=== PATIENT | male | born 1955 | race Caucasian/White ===

== ENCOUNTER 2019-11-13 12:17 | Emergency (ER) | payer MEDICARE ==
[~2019-11-13] VITALS: Ht 172.7 cm; Wt 63.5 kg
[2019-11-13 12:30] VITALS: BP 176/83
[2019-11-13] MEDS ORDERED: DEXAMETHASONE 4 MG TABLET PO STA (12:49)
[2019-11-13] MEDS ORDERED: fentaNYL PF VIAL 100 MCG/2 ML VIAL IV STA (12:49)
--- NOTE | 2019-11-13 12:53 | PHYS DOC ---
Past Medical History Past Medical History: Other Additional Past Medical Histor: scoliosis Past Surgical History: Other Additional Past Surgical Histo: bladder Alcohol Use: None Drug Use: None Adult General Chief Complaint Chief Complaint: LOWER BACK PAIN OR INJURY HPI HPI Patient is a 64 year old male who presents with back pain has been ongoing since . The patient states she's been having pain going down his right leg. He also has associated symptoms of frequent urination and dysuria. This started the same time as the back pain. The patient states he's never had this pain before rates as 9 out of 10 in severity and sharp. He denies any medical history. Review of Systems Review of Systems Constitutional: Denies fever or chills [] Eyes: Denies change in visual acuity, redness, or eye pain [] HENT: Denies nasal congestion or sore throat [] Respiratory: Denies cough or shortness of breath [] Cardiovascular: No additional information not addressed in HPI [] GI: Denies abdominal pain, nausea, vomiting, bloody stools or diarrhea [] : Reports dysuria and frequency. Musculoskeletal: Reports back pain radiating down the R leg. Integument: Denies rash or skin lesions [] Neurologic: Denies headache, focal weakness or sensory changes [] Endocrine: Denies polyuria or polydipsia [] Complete systems were reviewed and found to be within normal limits, except as documented in this note. Current Medications Current Medications Current Medications Medications (Trade) Dose Ordered Sig/Gabriela Start Time Stop Time Status Last Admin Dose Admin Dexamethasone (Decadron) 10 mg 1X STAT 11/13/19 12:49 11/13/19 12:59 DC 11/13/19 13:14 10 MG Fentanyl Citrate (Fentanyl 2ml Vial) 100 mcg 1X STAT 11/13/19 13:20 11/13/19 13:23 DC Allergies Allergies Allergies Coded Allergies Type Severity Reaction Last Updated Verified Penicillins Allergy Severe anaphylactic 11/13/19 Yes Sulfa (Sulfonamide Antibiotics) Allergy Severe anaphylactic 11/13/19 Yes Physical Exam Physical Exam Constitutional: Well developed, well nourished, no acute distress, non-toxic appearance. [] HENT: Normocephalic, atraumatic, bilateral external ears normal, oropharynx moist, no oral exudates, nose normal. [] Eyes: PERRLA, EOMI, conjunctiva normal, no discharge. [] Neck: Normal range of motion, no tenderness, Skin: Warm, dry, no erythema, no rash. [] Back: Lumbar tenderness with step off. Extremities: No tenderness, no cyanosis, no clubbing, ROM intact, no edema. [] Neurologic: Alert and oriented X 3, normal motor function, normal sensory function, no focal deficits noted. [] Psychologic: Affect normal, judgement normal, mood normal. [] Current Patient Data Vital Signs Vital Signs Date Time Temp Pulse Resp B/P (MAP) Pulse Ox O2 Delivery O2 Flow Rate FiO2 11/13/19 13:15 16 95 Room Air 11/13/19 12:30 98.4 77 176/83 (114) 98.4 Lab Values Laboratory Tests Test 11/13/19 12:55 Urine Collection Type Unknown Urine Color Yellow Urine Clarity Cloudy Urine pH 7.5 Urine Specific [place] 1.025 Urine Protein Negative mg/dL (NEG-TRACE) Urine Glucose (UA) Negative mg/dL (NEG) Urine Ketones (Stick) Negative mg/dL (NEG) Urine Blood Trace (NEG) Urine Nitrite Positive (NEG) Urine Bilirubin Negative (NEG) Urine Urobilinogen Dipstick 1.0 mg/dL (0.2 mg/dL) Urine Leukocyte Esterase Large (NEG) Urine RBC 1-2 /HPF (0-2) Urine WBC 5-10 /HPF (0-4) Urine Bacteria Many /HPF (0-FEW) EKG EKG [] Radiology/Procedures Radiology/Procedures [][facility] [address] [place], [place] [id number] IMAGING REPORT Signed PATIENT: ALIASAMMYMERLE ROSALES J ACCOUNT: [id number] : 1955 LOCATION: ER AGE: 64 SEX: M EXAM STATUS: REG ER ORD. PHYSICIAN: MERLE RICHEY APRN REASON: lumbar back pain PROCEDURE: CT LUMBAR SPINE WO CONTRAST Examination: CT lumbar spine without contrast History : history of back pain Comparison: None available TECHNIQUE: Axial CT images of the lumbar spine were performed with contrast. Coronal and sagittal reformats are performed Exposure: One or more of the following individualized dose reduction techniques were utilized for this examination: 1. Automated exposure control 2. Adjustment of the mA and/or kV according to patient size 3. Use of iterative reconstruction technique FINDINGS: Severe lumbar dextroscoliosis. Mild to moderate lateral compression changes of the lumbar spine of the L1, L2, L3, L4 vertebral levels. Severe degenerative changes lumbar spine. The bilateral facets are well aligned. Vacuum disc phenomenon identified in the lumbar spine throughout. Severe intervertebral disc height loss identified throughout lumbar spine likely degenerative changes. There is endplate irregularity identified at L1-L2, L3-L4 vertebral levels. IMPRESSION: 1. Severe degenerative changes lumbar spine with the lateral compression changes likely chronic. 2. Endplate irregularity identified at L1-L2, L2-L3 vertebral levels. This is most likely degenerative changes, however infectious etiology is not completely excluded. Clinical and laboratory correlation is recommended. Electronically signed by: Jluis Elliott MD (11/13/2019 1:29 PM) [facility] DICTATED and SIGNED BY: JLUIS ELLIOTT MD DATE: 11/13/19 1329 Course & Med Decision Making Course & Med Decision Making Pertinent Labs and Imaging studies reviewed. (See chart for details) The patient has urinary symptoms and back pain that started at the same time. He has spinal tenderness. Will get CT scan, UA, and give supportive care. UA shows nitrates and leukocytes. Will treat with Keflex. He also has sciatica, the CT was unremarkable for acute changes. Dragon Disclaimer Dragon Disclaimer This electronic medical record was generated, in whole or in part, using a voice recognition dictation system. Departure Departure Impression: Primary Impression: Sciatica of right side Additional Impression: Urinary tract infection Disposition: 01 HOME, SELF-CARE Condition: STABLE Patient Instructions: Sciatica, Urinary Tract Infection Additional Instructions: Thank you for visiting [facility]. We appreciate you trusting us with your care. If any additional problems come up don't hesitate to return to visit us. Please follow up with your primary care provider so they can plan additional care if needed and know about the problem that you had. If symptoms worsen come back to the Emergency Department. Any concerning symptoms that start such as chest pain, shortness of air, weakness or numbness on one side of the body, running high fevers or any other concerning symptoms return to the ER. You have been prescribed an antibiotic today to help fight your infection. Please take all of the antibiotic as directed. If after 48 hours the infection is not improving, please return for more care. If the infection worsens, return to ER for additional care. Please follow up with your primary care doctor in 1 week for recheck of urine. Scripts Cephalexin (KEFLEX) 500 Mg Capsule 1 CAP PO QID for 10 Days, #40 CAP 0 Refills Prov: MERLE RICHEY APRN 11/13/19 Hydrocodone/Apap 5-325 (NORCO 5-325 TABLET) 1 Each Tablet 1 TAB PO PRN Q6HRS PRN for PAIN for 3 Days, #10 TAB 0 Refills Prov: MERLE RICHEY APRN 11/13/19 Problem Qualifiers Additional Impression: Urinary tract infection Urinary tract infection type: acute cystitis Hematuria presence: with hematuria Qualified Codes: N30.01 - Acute cystitis with hematuria MERLE RICHEY APRN Nov 13, 2019 12:53
[2019-11-13 13:09] LABS: BILIRUBIN,URINE NEGATIVE (NEG); CLARITY,URINE CLOUDY; COLOR,URINE YELLOW; NITRITE,URINE POSITIVE (NEG); PH,URINE 7.5; PROTEIN,URINE NEGATIVE (NEG-TRACE)
[2019-11-13 13:18] LABS: BACTERIA,URINE MANY /HPF (0-FEW)
[2019-11-13] MEDS ORDERED: fentaNYL PF VIAL 100 MCG/2 ML VIAL IM STA (13:20)
--- NOTE | 2019-11-13 13:32 | RAD ---
Examination: CT lumbar spine without contrast History : history of back pain Comparison: None available TECHNIQUE: Axial CT images of the lumbar spine were performed with contrast. Coronal and sagittal reformats are performed Exposure: One or more of the following individualized dose reduction techniques were utilized for this examination: 1. Automated exposure control 2. Adjustment of the mA and/or kV according to patient size 3. Use of iterative reconstruction technique FINDINGS: Severe lumbar dextroscoliosis. Mild to moderate lateral compression changes of the lumbar spine of the L1, L2, L3, L4 vertebral levels. Severe degenerative changes lumbar spine. The bilateral facets are well aligned. Vacuum disc phenomenon identified in the lumbar spine throughout. Severe intervertebral disc height loss identified throughout lumbar spine likely degenerative changes. There is endplate irregularity identified at L1-L2, L3-L4 vertebral levels. IMPRESSION: 1. Severe degenerative changes lumbar spine with the lateral compression changes likely chronic. 2. Endplate irregularity identified at L1-L2, L2-L3 vertebral levels. This is most likely degenerative changes, however infectious etiology is not completely excluded. Clinical and laboratory correlation is recommended. Electronically signed by: Jluis Elliott MD (11/13/2019 1:29 PM) [facility]
[2019-11-13] MEDS ORDERED: HYDR-3164 PO (13:50)
[2019-11-13] MEDS ORDERED: CEPH-264 PO (13:50)
[2019-11-13] MEDS ORDERED: PROM25SU33 RC (20:59)
== END 2019-11-13 14:05 | disposition home or self-care (01) ==
LOC: ER 12:17
DX: N30.01 Acute cystitis with hematuria (principal); M54.41 Lumbago with sciatica, right side; Z98.890 Other specified postprocedural states; Z88.0 Allergy status to penicillin; Z88.2 Allergy status to sulfonamides
CPT/HCPCS: 72131; 81001; 87086; 96374; 99285; J3010; J8540

== ENCOUNTER 2019-11-13 20:29 | Emergency (ER) | payer MEDICARE ==
[~2019-11-13] VITALS: Ht 172.7 cm; Wt 65.8 kg
[~2019-11-13 20:29] MED LIST: CEPH-264 PO; HYDR-3164 PO
[2019-11-13 20:48] VITALS: BP 147/91
[2019-11-13] MEDS ORDERED: PROM25SU33 RC (20:59)
--- NOTE | 2019-11-13 21:00 | PHYS DOC ---
Past Medical History Past Medical History: Other Additional Past Medical Histor: scoliosis Past Surgical History: Other Additional Past Surgical Histo: bladder Alcohol Use: None Drug Use: None Adult General Chief Complaint Chief Complaint: NAUSEA/VOMITING/DIARRHA HPI HPI 64-year-old male with a history of chronic back and leg pain returns to the emergency department tonight secondary to increasing pain in his back and legs. He states he was unable to take his pain medication at home. He states he was unable to take because he was nauseated. He denies any fever chills or sweats.[] Review of Systems Review of Systems Constitutional: Denies fever or chills [] Eyes: Denies change in visual acuity, redness, or eye pain [] HENT: Denies nasal congestion or sore throat [] Respiratory: Denies cough or shortness of breath [] Cardiovascular: No additional information not addressed in HPI [] GI: Denies abdominal pain, nausea, vomiting, bloody stools or diarrhea [] : Denies dysuria or hematuria [] Musculoskeletal: Reports back pain per history of present illness[] Integument: Denies rash or skin lesions [] Neurologic: Denies headache, focal weakness or sensory changes [] Endocrine: Denies polyuria or polydipsia [] All other systems were reviewed and found to be within normal limits, except as documented in this note. Allergies Allergies Allergies Coded Allergies Type Severity Reaction Last Updated Verified Penicillins Allergy Severe anaphylactic 11/13/19 Yes Sulfa (Sulfonamide Antibiotics) Allergy Severe anaphylactic 11/13/19 Yes Physical Exam Physical Exam Constitutional: Well developed, well nourished, mild to moderate distress, non- toxic appearance. [] HENT: Normocephalic, atraumatic, bilateral external ears normal, oropharynx moist, no oral exudates, nose normal. [] Eyes: PERRLA, EOMI, conjunctiva normal, no discharge. [] Neck: Normal range of motion, no tenderness, supple, no stridor. [] Cardiovascular:Heart rate regular rhythm, no murmur [] Lungs & Thorax: Bilateral breath sounds clear to auscultation [] Abdomen: Bowel sounds normal, soft, no tenderness, no masses, no pulsatile masses. [] Skin: Warm, dry, no erythema, no rash. [] Back: No tenderness, no CVA tenderness. [] Extremities: No tenderness, no cyanosis, no clubbing, ROM intact, no edema. [] Neurologic: Alert and oriented X 3, normal motor function, normal sensory function, no focal deficits noted. [] Psychologic: Affect normal, judgement normal, mood normal. [] EKG EKG [] Radiology/Procedures Radiology/Procedures [] Course & Med Decision Making Course & Med Decision Making Pertinent Labs and Imaging studies reviewed. (See chart for details) [] Dragon Disclaimer Dragon Disclaimer This electronic medical record was generated, in whole or in part, using a voice recognition dictation system. Departure Departure Impression: Primary Impression: Sciatica of right side Additional Impression: Chronic pain Disposition: HOME, SELF-CARE Condition: STABLE Referrals: UNKNOWN PCP NAME (PCP) Patient Instructions: Back Pain, Adult Additional Instructions: Return to the emergency department with any new or concerning symptoms Scripts Promethazine Hcl (PROMETHAZINE HCL) 25 Mg Supp.rect 25 MG RC Q6H PRN for NAUSEA/VOMITING, #10 SUPP.RECT Prov: MARTA WERNER DO 11/13/19 Problem Qualifiers Additional Impression: Chronic pain Chronic pain type: chronic pain syndrome Qualified Codes: G89.4 - Chronic pain syndrome MARTA WERNER DO Nov 13, 2019 21:00
[2019-11-13] MEDS ORDERED: ONDANSETRON PF 4 MG/2 ML VIAL. IM ONE (21:30)
[2019-11-13] MEDS ORDERED: HYDROmorphone 2 MG/ML VIAL IM ONE (21:30)
== END 2019-11-13 21:24 | disposition home or self-care (01) ==
LOC: ER 20:29
DX: G89.4 Chronic pain syndrome (principal); M54.31 Sciatica, right side; M54.9 Dorsalgia, unspecified; Z98.890 Other specified postprocedural states; Z88.0 Allergy status to penicillin; Z88.2 Allergy status to sulfonamides
CPT/HCPCS: 96372; 99284; J1170; J2405

== ENCOUNTER 2020-01-29 19:04 | Emergency (ER) | payer MEDICARE ==
[~2020-01-29] VITALS: Ht 172.7 cm; Wt 72.2 kg
[~2020-01-29 19:04] MED LIST changes: +PROM25SU33 RC
[2020-01-29 19:45] LABS: BASO % 0 % (0-3); EOS % 0 % (0-3); HEMATOCRIT 41.2 % (39.0-53.0); HEMOGLOBIN 13.7 g/dL (13.0-17.5); LYMPH # 1.3 x10^3/uL (1.0-4.8); LYMPH % 15 % (24-48); MEAN CORPUSCULAR HEMOGLOBIN 27 pg (25-35); MEAN CORPUSCULAR HGB CONC 33 g/dL (31-37); MEAN CORPUSCULAR VOLUME 83 fL (79-100); MONO # 0.5 x10^3/uL (0.0-1.1); MONO % 6 % (0-9); NEUT # 6.9 x10^3/uL (1.8-7.7); NEUT % 79 % (31-73); PLATELET COUNT 251 x10^3/uL (140-400); RED BLOOD COUNT 4.99 x10^6/uL (4.30-5.70); WHITE BLOOD COUNT 8.7 x10^3/uL (4.0-11.0)
[2020-01-29] MEDS ORDERED: IV NORMAL SALINE 1000ML BAG 1,000 ML IV ONE (19:45)
[2020-01-29 19:53] LABS: CALCIUM 9.7 mg/dL (8.5-10.1); GFR 75.7; POTASSIUM 3.5 mmol/L (3.5-5.1)
[2020-01-29 19:58] LABS: ALBUMIN/GLOBULIN RATIO 1.1 (1.0-1.7); MAGNESIUM 1.7 mg/dL (1.8-2.4); TOTAL BILIRUBIN 0.5 mg/dL (0.2-1.0); TOTAL PROTEIN 7.6 g/dL (6.4-8.2)
[2020-01-29 20:32] LABS: BILIRUBIN,URINE NEGATIVE (NEG); CLARITY,URINE CLOUDY; COLOR,URINE YELLOW; NITRITE,URINE POSITIVE (NEG); PH,URINE 5.5; PROTEIN,URINE 30 mg/dL (NEG-TRACE)
[2020-01-29 20:39] LABS: AMPHETAMINE/METHAMPHETAMINE NEG (NEG); BACTERIA,URINE MANY /HPF (0-FEW); BARBITURATES NEG (NEG); BENZODIAZEPINES NEG (NEG); CANNABINOIDS NEG (NEG); COCAINE NEG (NEG); METHADONE POS (NEG); OPIATES NEG (NEG); PHENCYCLIDINE NEG (NEG); WBC,URINE TNTC /HPF (0-4)
[2020-01-29] MEDS ORDERED: BENZTROPINE MESYLATE 2 MG/2 ML VIAL. IV ONE (22:00)
--- NOTE | 2020-01-29 22:19 | PHYS DOC ---
Past Medical History Past Medical History: Other Additional Past Medical Histor: scoliosis,CHRONIC BACK PAIN Past Surgical History: Other Additional Past Surgical Histo: bladder Smoking Status: Current Every Day Smoker Alcohol Use: None Drug Use: None Adult General Chief Complaint Chief Complaint: ANXIETY/PANIC ATTACK HPI HPI Patient is a 64 year old male who was brought here from home by EMS for anxiety, panic attack. Patient has history of anxiety and chronic back pain, he is on lorazepam and methadone. Patient started feeling shaky and anxious today, he took his medications but did not get calm down so he called EMS to take him here for evaluation. Patient denies any trouble breathing, no chest pain, no abdominal pain, no nausea or vomiting. Patient denies suicidal ideation denies homicidal ideation. Review of Systems Review of Systems Constitutional: Denies fever or chills [] Eyes: Denies change in visual acuity, redness, or eye pain [] HENT: Denies nasal congestion or sore throat [] Respiratory: Denies cough or shortness of breath [] Cardiovascular: No additional information not addressed in HPI [] GI: Denies abdominal pain, nausea, vomiting, bloody stools or diarrhea [] : Denies dysuria or hematuria [] Musculoskeletal: Denies back pain or joint pain [] Integument: Denies rash or skin lesions [] Neurologic: Denies headache, focal weakness or sensory changes [] Endocrine: Denies polyuria or polydipsia [] Psych: Positive for anxiety, NO suicidal ideation, no homicidal ideation. All other systems were reviewed and found to be within normal limits, except as documented in this note. Current Medications Current Medications Current Medications Medications (Trade) Dose Ordered Sig/Gabriela Start Time Stop Time Status Last Admin Dose Admin Benztropine Mesylate (Cogentin) 2 mg 1X ONCE 01/29/20 22:00 01/29/20 22:01 DC 01/29/20 22:07 2 MG Levofloxacin/ Dextrose 150 ml @ 100 mls/hr 1X ONCE 01/29/20 21:00 01/29/20 22:29 DC 01/29/20 21:02 100 MLS/HR Lorazepam (Ativan Inj) 2 mg 1X ONCE 01/29/20 19:45 01/29/20 19:46 DC 01/29/20 19:50 2 MG Sodium Chloride 1,000 ml @ 1,000 mls/hr 1X ONCE 01/29/20 19:45 01/29/20 20:44 DC 01/29/20 19:45 1,000 MLS/HR Allergies Allergies Allergies Coded Allergies Type Severity Reaction Last Updated Verified Penicillins Allergy Severe anaphylactic 11/13/19 Yes Sulfa (Sulfonamide Antibiotics) Allergy Severe anaphylactic 11/13/19 Yes Influenza Virus Vaccines Allergy Intermediate 01/29/20 Yes Physical Exam Physical Exam Constitutional: Well developed, well nourished, appeared shaky and trembling, mild acute distress, non-toxic appearance. [] HENT: Normocephalic, atraumatic, bilateral external ears normal, oropharynx moist, no oral exudates, nose normal. [] Eyes: PERRLA, EOMI, conjunctiva normal, no discharge. [] Neck: Normal range of motion, no tenderness, supple, no stridor. [] Cardiovascular:Heart rate regular rhythm, no murmur [] Lungs & Thorax: Bilateral breath sounds clear to auscultation [] Abdomen: Bowel sounds normal, soft, no tenderness, no masses, no pulsatile m asses. [] Skin: Warm, dry, no erythema, no rash. [] Back: No tenderness, no CVA tenderness. [] Extremities: No tenderness, no cyanosis, no clubbing, ROM intact, no edema. [] Neurologic: Alert and oriented X 3, normal motor function, normal sensory function, no focal deficits noted. [] Psychologic: appeared very anxious, denied suicidal ideation, no homicidal ideation. Current Patient Data Vital Signs Vital Signs Date Time Temp Pulse Resp B/P (MAP) Pulse Ox O2 Delivery O2 Flow Rate FiO2 01/29/20 19:14 98.4 96 24 143/67 (92) 98 Room Air 98.4 Lab Values Laboratory Tests Test 01/29/20 19:20 01/29/20 20:28 White Blood Count 8.7 x10^3/uL (4.0-11.0) Red Blood Count 4.99 x10^6/uL (4.30-5.70) Hemoglobin 13.7 g/dL (13.0-17.5) Hematocrit 41.2 % (39.0-53.0) Mean Corpuscular Volume 83 fL (79-100) Mean Corpuscular Hemoglobin 27 pg (25-35) Mean Corpuscular Hemoglobin Concent 33 g/dL (31-37) Red Cell Distribution Width 16.0 % (11.5-14.5) H Platelet Count 251 x10^3/uL (140-400) Neutrophils (%) (Auto) 79 % (31-73) H Lymphocytes (%) (Auto) 15 % (24-48) L Monocytes (%) (Auto) 6 % (0-9) Eosinophils (%) (Auto) 0 % (0-3) Basophils (%) (Auto) 0 % (0-3) Neutrophils # (Auto) 6.9 x10^3/uL (1.8-7.7) Lymphocytes # (Auto) 1.3 x10^3/uL (1.0-4.8) Monocytes # (Auto) 0.5 x10^3/uL (0.0-1.1) Eosinophils # (Auto) 0.0 x10^3/uL (0.0-0.7) Basophils # (Auto) 0.0 x10^3/uL (0.0-0.2) Sodium Level 144 mmol/L (136-145) Potassium Level 3.5 mmol/L (3.5-5.1) Chloride Level 102 mmol/L (98-107) Carbon Dioxide Level 29 mmol/L (21-32) Anion Gap 13 (6-14) Blood Urea Nitrogen 14 mg/dL (8-26) Creatinine 1.0 mg/dL (0.7-1.3) Estimated GFR (Cockcroft-Gault) 75.7 BUN/Creatinine Ratio 14 (6-20) Glucose Level 129 mg/dL (70-99) H Calcium Level 9.7 mg/dL (8.5-10.1) Magnesium Level 1.7 mg/dL (1.8-2.4) L Total Bilirubin 0.5 mg/dL (0.2-1.0) Aspartate Amino Transferase (AST) 21 U/L (15-37) Alanine Aminotransferase (ALT) 20 U/L (16-63) Alkaline Phosphatase 103 U/L (46-116) Total Protein 7.6 g/dL (6.4-8.2) Albumin 4.0 g/dL (3.4-5.0) Albumin/Globulin Ratio 1.1 (1.0-1.7) Urine Collection Type Unknown Urine Color Yellow Urine Clarity Cloudy Urine pH 5.5 Urine Specific [place] 1.025 Urine Protein 30 mg/dL (NEG-TRACE) Urine Glucose (UA) Negative mg/dL (NEG) Urine Ketones (Stick) Negative mg/dL (NEG) Urine Blood Small (NEG) Urine Nitrite Positive (NEG) Urine Bilirubin Negative (NEG) Urine Urobilinogen Dipstick 1.0 mg/dL (0.2 mg/dL) Urine Leukocyte Esterase Large (NEG) Urine RBC 3-5 /HPF (0-2) Urine WBC Tntc /HPF (0-4) Urine Squamous Epithelial Cells None /LPF Urine Bacteria Many /HPF (0-FEW) Urine Mucus Marked /LPF Urine Opiates Screen Neg (NEG) Urine Methadone Screen Pos (NEG) Urine Barbiturates Neg (NEG) Urine Phencyclidine Screen Neg (NEG) Urine Amphetamine/Methamphetamine Neg (NEG) Urine Benzodiazepines Screen Neg (NEG) Urine Cocaine Screen Neg (NEG) Urine Cannabinoids Screen Neg (NEG) Urine Ethyl Alcohol Neg (NEG) Laboratory Tests 01/29/20 19:20 Laboratory Tests 01/29/20 19:20 EKG EKG [] Radiology/Procedures Radiology/Procedures [] Course & Med Decision Making Course & Med Decision Making Pertinent Labs and Imaging studies reviewed. (See chart for details) Patient is a 64-year-old male who was evaluated in the ER due to anxiety ATTACK. Patient also was found to have UTI. Patient was given IV fluid and IV Levaquin in the ER, he was also given anxiety medication in ER, he felt much better. Patient denies suicidal ideation, denies homicidal ideation. Patient will be discharged home. Patient is on methadone for chronic back pain, lorazepam for anxiety at home. Patient have all of these medications with him. Dragon Disclaimer Dragon Disclaimer This electronic medical record was generated, in whole or in part, using a voice recognition dictation system. Departure Departure Impression: Primary Impression: Urinary tract infection Additional Impression: Anxiety Disposition: 01 HOME, SELF-CARE Condition: STABLE Referrals: UNKNOWN PCP NAME (PCP) Patient Instructions: Anxiety and Panic Attacks, Urinary Tract Infection Additional Instructions: Thank you for visiting our Emergency Department. We appreciate you trusting us with your care. If any additional problems come up don't hesitate to return to visit us. Please follow up with your primary care provider so they can plan additional care if needed and know about the problem that you had. If symptoms worsen come back to the Emergency Department. Any concerning symptoms that start such as chest pain, shortness of air, weakness or numbness on one side of the body, running high fevers or any other concerning symptoms return to the ER. Scripts Levofloxacin (LEVAQUIN) 500 Mg Tablet 1 TAB PO DAILY for 7 Days, #7 TAB 0 Refills Prov: ISRAEL ECHEVERRIA DO 01/29/20 Problem Qualifiers ISRAEL ECHEVERRIA DO Jan 29, 2020 22:19
[2020-01-29] MEDS ORDERED: LEVO500T59 PO (23:09)
[2020-01-29 23:41] VITALS: BP 164/93
== END 2020-01-29 23:50 | disposition home or self-care (01) ==
LOC: ER 19:04
DX: N39.0 Urinary tract infection, site not specified (principal); F41.9 Anxiety disorder, unspecified; G89.29 Other chronic pain; F17.200 Nicotine dependence, unspecified, uncomplicated; Z98.890 Other specified postprocedural states; Z88.0 Allergy status to penicillin; Z88.2 Allergy status to sulfonamides; Z88.7 Allergy status to serum and vaccine
CPT/HCPCS: 36415; 80053; 80307; 81001; 83735; 85025; 87086; 96361; 96365; 96366; 96375; 99285; J0515; J1956; J2060; J7030

== ENCOUNTER → 2020-02-16 | Outpatient (CLI) | payer MEDICARE ==
[2020-01-29 23:41] VITALS: BP 164/93
[~2020-02-16] MED LIST changes: +CHOL200078 PO; +CIPR250T PO; +DULO30CA2 PO; +DULO60CA6 PO; +FINA5TAB4 PO; +GABA300C18 PO; +LEVO500T59 PO; +MAGN400T30 PO; +MIRT15TA90 PO; +OLAN5TAB9 PO; +TAMS0.4C97 PO; +TRAZ-123 PO; +methylPREDNISolone ACETATE 40 MG/ML VIAL. ONE; +methylPREDNISolone ACETATE 80 MG/ML VIAL. ONE
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
== END | disposition home or self-care (01) ==
LOC: PNCL 10:39
PROVIDERS: ATTEND Anesthesiology
DX: M51.16 Intervertebral disc disorders with radiculopathy, lumbar region (principal); F17.210 Nicotine dependence, cigarettes, uncomplicated; M79.661 Pain in right lower leg; M79.662 Pain in left lower leg; M19.90 Unspecified osteoarthritis, unspecified site; Z87.440 Personal history of urinary (tract) infections; Z98.890 Other specified postprocedural states; Z88.0 Allergy status to penicillin; Z88.1 Allergy status to other antibiotic agents; Z91.041 Radiographic dye allergy status; Z80.3 Family history of malignant neoplasm of breast; Z83.3 Family history of diabetes mellitus; Z79.899 Other long term (current) drug therapy; Z79.2 Long term (current) use of antibiotics
CPT/HCPCS: 62323; J1030; J1040

== ENCOUNTER 2020-02-21 03:50 | Emergency (ER) | payer MEDICARE ==
[~2020-02-21] VITALS: Ht 172.7 cm; Wt 63.6 kg
[~2020-02-21 03:50] MED LIST changes: -methylPREDNISolone ACETATE 40 MG/ML VIAL. ONE; -methylPREDNISolone ACETATE 80 MG/ML VIAL. ONE
--- NOTE | 2020-02-21 03:59 | PHYS DOC ---
Past Medical History Past Medical History: Anxiety, Other Additional Past Medical Histor: scoliosis,CHRONIC BACK PAIN (MERLE CAMPBELL DO) Past Surgical History: Other Additional Past Surgical Histo: bladder (MERLE CAMPBELL DO) Smoking Status: Current Every Day Smoker Alcohol Use: None Drug Use: None (MERLE CAMPBELL DO) Adult General Chief Complaint Chief Complaint: N/V/D, Abdominal pain HPI HPI 64-year-old male presents with one-day history of diffuse abdominal pain with associated nausea, vomiting, and diarrhea. Patient denies known sick contacts. Patient lives at [facility] in independent living. Denies fever or chills. Patient with chronic anxiety and back pain. Patient takes clonazepam and methadone. Patient reported he had not been taking his same dosing of methadone recently. (MERLE CAMPBELL DO) Review of Systems Review of Systems Constitutional: Denies fever or chills Eyes: Denies redness or eye pain HENT: Denies nasal congestion or sore throat Respiratory: Denies cough or shortness of breath Cardiovascular: Denies chest pain or palpitations GI: Reports abdominal pain, nausea, vomiting, and diarrhea : Denies dysuria or hematuria Musculoskeletal: Denies back pain or joint pain Integument: Denies rash or skin lesions Neurologic: Denies headache, focal weakness or sensory changes Complete systems were reviewed and found to be within normal limits, except as documented in this note. (MERLE CAMPBELL DO) Current Medications Current Medications Current Medications Medications (Trade) Dose Ordered Sig/Gabriela Start Time Stop Time Status Last Admin Dose Admin Ciprofloxacin/ Dextrose 200 ml @ 200 mls/hr 1X ONCE 02/21/20 07:45 02/21/20 08:44 DC 02/21/20 07:56 200 MLS/HR Famotidine (Pepcid Vial) 20 mg 1X ONCE 02/21/20 04:30 02/21/20 04:31 DC 02/21/20 05:00 20 MG Info (CONTRAST GIVEN -- Rx MONITORING) 1 each PRN DAILY PRN 02/21/20 05:45 02/21/20 09:26 DC Iohexol (Omnipaque 300 Mg/ml) 75 ml 1X ONCE 02/21/20 06:00 02/21/20 06:01 DC 02/21/20 05:58 75 ML Lorazepam (Ativan Inj) 1 mg 1X ONCE 02/21/20 06:00 02/21/20 06:01 DC 02/21/20 06:26 1 MG Ondansetron HCl (Zofran) 4 mg 1X ONCE 02/21/20 04:30 02/21/20 04:31 DC 02/21/20 05:00 4 MG Potassium Bicarbonate (Potassium Effervescent Tablet) 40 meq 1X ONCE 02/21/20 07:45 02/21/20 07:46 DC 02/21/20 07:56 40 MEQ Sodium Chloride 1,000 ml @ 1,000 mls/hr 1X ONCE 02/21/20 04:30 02/21/20 05:29 DC 02/21/20 05:00 1,000 MLS[facility]HR [facility] Allergies Allergies Allergies Coded Allergies Type Severity Reaction Last Updated Verified Penicillins Allergy Severe anaphylactic 11/13/19 Yes Sulfa (Sulfonamide Antibiotics) Allergy Severe anaphylactic 11/13/19 Yes Influenza Virus Vaccines Allergy Intermediate 01/29/20 Yes ([facility] ) Physical Exam Physical Exam Constitutional: Well developed, well nourished, anxious, non-toxic appearance HENT: Normocephalic, atraumatic, oropharynx moist Eyes: Conjunctiva normal, no discharge Neck: Normal range of motion, no tenderness, supple Cardiovascular: Heart rate normal, regular rhythm Lungs & Thorax: Bilateral breath sounds clear to auscultation, no wheezing Abdomen: Soft, diffuse tenderness, no guarding/rebound tenderness/distention Skin: Warm, dry, no erythema, no rash Extremities: No tenderness, ROM intact, no edema Neurologic: Alert and oriented X 3, normal motor function, normal sensory function, no focal deficits noted Psychologic: Affect anxious, judgment normal (MERLE CAMPBELL DO) Current Patient Data Vital Signs Vital Signs Date Time Temp Pulse Resp B/P (MAP) Pulse Ox O2 Delivery O2 Flow Rate FiO2 02/21/20 08:38 106 20 151/107 (122) 02/21/20 06:38 99 Room Air 02/21/20 04:30 98.5 98.5 ([facility]) Lab Values Laboratory Tests Test 02/21/20 04:58 02/21/20 05:20 White Blood Count 10.0 x10^3/uL (4.0-11.0) Red Blood Count 5.54 x10^6/uL (4.30-5.70) Hemoglobin 15.1 g/dL (13.0-17.5) Hematocrit 45.9 % (39.0-53.0) Mean Corpuscular Volume 83 fL (79-100) Mean Corpuscular Hemoglobin 27 pg (25-35) Mean Corpuscular Hemoglobin Concent 33 g/dL (31-37) Red Cell Distribution Width 15.5 % (11.5-14.5) H Platelet Count 314 x10^3/uL (140-400) Neutrophils (%) (Auto) 71 % (31-73) Lymphocytes (%) (Auto) 21 % (24-48) L Monocytes (%) (Auto) 7 % (0-9) Eosinophils (%) (Auto) 1 % (0-3) Basophils (%) (Auto) 0 % (0-3) Neutrophils # (Auto) 7.1 x10^3/uL (1.8-7.7) Lymphocytes # (Auto) 2.1 x10^3/uL (1.0-4.8) Monocytes # (Auto) 0.7 x10^3/uL (0.0-1.1) Eosinophils # (Auto) 0.1 x10^3/uL (0.0-0.7) Basophils # (Auto) 0.0 x10^3/uL (0.0-0.2) Prothrombin Time 13.0 SEC (11.7-14.0) Prothrombin Time INR 1.0 (0.8-1.1) Activated Partial Thromboplast Time 30 SEC (24-38) Sodium Level 140 mmol/L (136-145) Potassium Level 3.1 mmol/L (3.5-5.1) L Chloride Level 101 mmol/L (98-107) Carbon Dioxide Level 30 mmol/L (21-32) Anion Gap 9 (6-14) Blood Urea Nitrogen 21 mg/dL (8-26) Creatinine 1.0 mg/dL (0.7-1.3) Estimated GFR (Cockcroft-Gault) 75.7 BUN/Creatinine Ratio 21 (6-20) H Glucose Level 114 mg/dL (70-99) H Lactic Acid Level 1.4 mmol/L (0.4-2.0) Calcium Level 9.5 mg/dL (8.5-10.1) Magnesium Level 2.0 mg/dL (1.8-2.4) Total Bilirubin 0.9 mg/dL (0.2-1.0) Aspartate Amino Transferase (AST) 17 U/L (15-37) Alanine Aminotransferase (ALT) 28 U/L (16-63) Alkaline Phosphatase 102 U/L (46-116) Creatine Kinase 118 U/L (39-308) Creatine Kinase MB (Mass) 3.2 ng/mL (0.0-3.6) Creatine Kinase MB Relative Index 2.7 % (0-4) Troponin I Quantitative < 0.017 ng/mL (0.000-0.055) Total Protein 7.5 g/dL (6.4-8.2) Albumin 4.0 g/dL (3.4-5.0) Albumin/Globulin Ratio 1.1 (1.0-1.7) Lipase 208 U/L (73-393) Urine Collection Type Unknown Urine Color Yellow Urine Clarity Clear Urine pH 6.5 (<5.0-8.0) Urine Specific [place] >=1.030 (1.000-1.030) Urine Protein 30 mg/dL (NEG-TRACE) Urine Glucose (UA) Negative mg/dL (NEG) Urine Ketones (Stick) Negative mg/dL (NEG) Urine Blood Negative (NEG) Urine Nitrite Positive (NEG) Urine Bilirubin Negative (NEG) Urine Urobilinogen Dipstick 1.0 mg/dL (0.2 mg/dL) Urine Leukocyte Esterase Moderate (NEG) Urine RBC 0 /HPF (0-2) Urine WBC Tntc /HPF (0-4) Urine Squamous Epithelial Cells Few /LPF Urine Bacteria Many /HPF (0-FEW) Urine Mucus Mod /LPF Laboratory Tests 02/21/20 04:58 Laboratory Tests 02/21/20 04:58 (KRISS DURBIN E ) Lab Values Laboratory Tests Test 02/21/20 04:58 02/21/20 05:20 White Blood Count 10.0 x10^3/uL (4.0-11.0) Red Blood Count 5.54 x10^6/uL (4.30-5.70) Hemoglobin 15.1 g/dL (13.0-17.5) Hematocrit 45.9 % (39.0-53.0) Mean Corpuscular Volume 83 fL (79-100) Mean Corpuscular Hemoglobin 27 pg (25-35) Mean Corpuscular Hemoglobin Concent 33 g/dL (31-37) Red Cell Distribution Width 15.5 % (11.5-14.5) H Platelet Count 314 x10^3/uL (140-400) Neutrophils (%) (Auto) 71 % (31-73) Lymphocytes (%) (Auto) 21 % (24-48) L Monocytes (%) (Auto) 7 % (0-9) Eosinophils (%) (Auto) 1 % (0-3) Basophils (%) (Auto) 0 % (0-3) Neutrophils # (Auto) 7.1 x10^3/uL (1.8-7.7) Lymphocytes # (Auto) 2.1 x10^3/uL (1.0-4.8) Monocytes # (Auto) 0.7 x10^3/uL (0.0-1.1) Eosinophils # (Auto) 0.1 x10^3/uL (0.0-0.7) Basophils # (Auto) 0.0 x10^3/uL (0.0-0.2) Sodium Level 140 mmol/L (136-145) Potassium Level 3.1 mmol/L (3.5-5.1) L Chloride Level 101 mmol/L (98-107) Carbon Dioxide Level 30 mmol/L (21-32) Anion Gap 9 (6-14) Blood Urea Nitrogen 21 mg/dL (8-26) Creatinine 1.0 mg/dL (0.7-1.3) Estimated GFR (Cockcroft-Gault) 75.7 BUN/Creatinine Ratio 21 (6-20) H Glucose Level 114 mg/dL (70-99) H Lactic Acid Level 1.4 mmol/L (0.4-2.0) Calcium Level 9.5 mg/dL (8.5-10.1) Magnesium Level 2.0 mg/dL (1.8-2.4) Total Bilirubin 0.9 mg/dL (0.2-1.0) Aspartate Amino Transferase (AST) 17 U/L (15-37) Alanine Aminotransferase (ALT) 28 U/L (16-63) Alkaline Phosphatase 102 U/L (46-116) Creatine Kinase 118 U/L (39-308) Creatine Kinase MB (Mass) 3.2 ng/mL (0.0-3.6) Creatine Kinase MB Relative Index 2.7 % (0-4) Troponin I Quantitative < 0.017 ng/mL (0.000-0.055) Total Protein 7.5 g/dL (6.4-8.2) Albumin 4.0 g/dL (3.4-5.0) Albumin/Globulin Ratio 1.1 (1.0-1.7) Lipase 208 U/L (73-393) Urine Collection Type Unknown Urine Color Yellow Urine Clarity Clear Urine pH 6.5 (<5.0-8.0) Urine Specific [place] >=1.030 (1.000-1.030) Urine Protein 30 mg/dL (NEG-TRACE) Urine Glucose (UA) Negative mg/dL (NEG) Urine Ketones (Stick) Negative mg/dL (NEG) Urine Blood Negative (NEG) Urine Nitrite Positive (NEG) Urine Bilirubin Negative (NEG) Urine Urobilinogen Dipstick 1.0 mg/dL (0.2 mg/dL) Urine Leukocyte Esterase Moderate (NEG) Urine RBC 0 /HPF (0-2) Urine WBC Tntc /HPF (0-4) Urine Squamous Epithelial Cells Few /LPF Urine Bacteria Many /HPF (0-FEW) Urine Mucus Mod /LPF Laboratory Tests 02/21/20 04:58 Laboratory Tests 02/21/20 04:58 (MERLE CAMPBELL DO) EKG EKG @0434 NSR at 90bpm, NO ST elevation, baseline artifact, PACs (MERLE CAMPBELL DO) Radiology/Procedures Radiology/Procedures [] (MERLE CAMPBELL DO) Impressions: IMPRESSION: * The appendix is at the upper limits of normal in size without definite adjacent inflammation at this time. * There is some dilatation of the common bile duct with a suspected calcific density structure either along the wall or within the duct. Could be secondary to a calcification or tiny stone. This does not appear to be obstructive. * Enlarged prostate is identified with soft tissue density extending into the lumen of the bladder. This could be secondary to prostate tissue but cannot exclude a bladder lesion given this finding. * Hiatal hernia. * Right lung base nodule. * Low-density right renal lesion which is not well characterized on this examination. Could be solid or cystic in nature but nonemergent ultrasound could be helpful to further evaluate if this is solid or cystic in nature. (KRISS DURBIN DO) Course & Med Decision Making Course & Med Decision Making Pertinent Labs and Imaging studies reviewed. (See chart for details) Patient presents with nausea, vomiting, and diarrhea with diffuse abdominal pain. History of chronic methadone use. Patient reports his been off of his normal dosing. IV fluid hydration provided. Symptomatic treatment given. Labs obtained and pending. CT abdomen/pelvis also pending at this time. Sign out given to Dr. Barfield for further evaluation and final disposition. Discussed current findings and plan with patient, who acknowledges understanding and agreement. (MERLE CAMPBELL DO) Course & Med Decision Making CT does not show any acute changes. There is a concern for process due to enlargement does verbalize small stone in the common bile duct. Patient is normal tenderness in the right upper quadrant. Patient complains of pain in the right lower quadrant. The appendix is within normal limits. No leukocytosis. Patient does have a UTI per UA. Patient states that he has chronic UTIs Potassium 3.1 and was replaced in the ER. IV Cipro given in the ER. Patient will be discharged with oral Cipro, oral Zo mayte. Patient instructed to follow up with PCP for refill of his methadone dose. Discussed results and plan of care with patient. Patient instructed to return to the ED if symptoms worsen or if any concerns. Appropriate discharge instructions given to patient to return to the ED or to seek immediate medical evaluation. (KRISS DURBIN DO) Dragon Disclaimer Dragon Disclaimer This electronic medical record was generated, in whole or in part, using a voice recognition dictation system. (MERLE CAMPBELL DO) Departure Departure Impression: Primary Impression: Nausea vomiting and diarrhea Additional Impressions: Chronic narcotic use UTI (urinary tract infection) Disposition: 01 HOME, SELF-CARE Condition: IMPROVED Referrals: UNKNOWN PCP NAME (PCP) Patient Instructions: Diarrhea, Nausea and Vomiting, Urinary Tract Infection Additional Instructions: Discussed results and plan of care with patient. Patient is instructed to follow up with PCP in one to 2 days. Appropriate discharge instructions given to patient to return to the ED or to seek immediate medical evaluation. Patient is instructed to return to the ED if symptoms worsen or if any concerns. Scripts Ciprofloxacin Hcl (CIPRO) 500 Mg Tablet 1 TAB PO BID for 10 Days, #20 TAB 0 Refills Prov: KRISS DURBIN DO 02/21/20 Ondansetron Hcl (ZOFRAN) 4 Mg Tablet 4 MG PO PRN TID PRN for NAUSEA for 7 Days, #15 nausea/vomiting Prov: KRISS DURBIN DO 02/21/20 Problem Qualifiers MERLE CAMPBELL DO Feb 21, 2020 03:59 KRISS DURBIN DO Feb 21, 2020 08:10
[2020-02-21] MEDS ORDERED: FAMOTIDINE 20 MG/2 ML VIAL IVP ONE (04:30)
[2020-02-21] MEDS ORDERED: ONDANSETRON PF 4 MG/2 ML VIAL. IVP ONE (04:30)
[2020-02-21] MEDS ORDERED: IV NORMAL SALINE 1000ML BAG 1,000 ML IV ONE (04:30)
[2020-02-21 05:14] LABS: BASO % 0 % (0-3); EOS # 0.1 x10^3/uL (0.0-0.7); EOS % 1 % (0-3); HEMATOCRIT 45.9 % (39.0-53.0); HEMOGLOBIN 15.1 g/dL (13.0-17.5); LYMPH # 2.1 x10^3/uL (1.0-4.8); LYMPH % 21 % (24-48); MEAN CORPUSCULAR HEMOGLOBIN 27 pg (25-35); MEAN CORPUSCULAR HGB CONC 33 g/dL (31-37); MEAN CORPUSCULAR VOLUME 83 fL (79-100); MONO # 0.7 x10^3/uL (0.0-1.1); MONO % 7 % (0-9); NEUT # 7.1 x10^3/uL (1.8-7.7); NEUT % 71 % (31-73); PLATELET COUNT 314 x10^3/uL (140-400); RED BLOOD COUNT 5.54 x10^6/uL (4.30-5.70); RED CELL DISTRIBUTION WIDTH 15.5 % (11.5-14.5)
[2020-02-21 05:28] LABS: BILIRUBIN,URINE NEGATIVE (NEG); CLARITY,URINE CLEAR; COLOR,URINE YELLOW; NITRITE,URINE POSITIVE (NEG); PH,URINE 6.5 (<5.0-8.0); PROTEIN,URINE 30 mg/dL (NEG-TRACE)
[2020-02-21 05:29] LABS: CALCIUM 9.5 mg/dL (8.5-10.1); GFR 75.7; POTASSIUM 3.1 mmol/L (3.5-5.1)
[2020-02-21 05:32] LABS: SQUAMOUS EPITHELIAL CELL,UR FEW /LPF
[2020-02-21 05:33] LABS: RBC,URINE 0 /HPF (0-2)
[2020-02-21 05:34] LABS: ALBUMIN/GLOBULIN RATIO 1.1 (1.0-1.7); TOTAL BILIRUBIN 0.9 mg/dL (0.2-1.0); TOTAL PROTEIN 7.5 g/dL (6.4-8.2)
[2020-02-21 05:34] LABS: BACTERIA,URINE MANY /HPF (0-FEW); WBC,URINE TNTC /HPF (0-4)
[2020-02-21] MEDS ORDERED: CONTRAST GIVEN. MC PRN (05:45)
[2020-02-21] MEDS ORDERED: IOHEXOL 300 MG/ML 100ML VIAL. IV ONE (06:00)
--- NOTE | 2020-02-21 06:42 | RAD ---
INDICATION: Abdomen pain COMPARISON: None. TECHNIQUE: Axial CT images obtained through the abdomen and pelvis with contrast. One or more of the following individualized dose reduction techniques were utilized for this examination: 1. Automated exposure control; 2. Adjustment of the mA and/or kV according to patient size; 3. Use of iterative reconstruction technique. FINDINGS: Nodular along the fissure and right middle lobe measuring 6 mm There is some cystic changes at the lung bases. Moderate hiatal hernia. Severe calcific atherosclerosis with ectasia infrarenal abdominal aorta. Fat-containing inguinal hernias. Apparent 1 mm calcification at the lateral aspect of the common bile duct. Common bile duct measures up to 10 mm. Gallbladder is partially contracted. Spleen unremarkable. No hydronephrosis. 7 mm low-density lesion right kidney. Prostate is enlarged and extends into the urinary bladder. Calcifications of the prostate. Urinary bladder is partially distended. Scoliotic curvature of the spine with degenerative changes with multilevel central canal and neural foraminal stenosis. The appendix measures up to about 6 mm with a portion this measurement secondary to intraluminal air and debris. Definite adjacent inflammatory changes not seen with some limitation secondary to motion. IMPRESSION: * The appendix is at the upper limits of normal in size without definite adjacent inflammation at this time. * There is some dilatation of the common bile duct with a suspected calcific density structure either along the wall or within the duct. Could be secondary to a calcification or tiny stone. This does not appear to be obstructive. * Enlarged prostate is identified with soft tissue density extending into the lumen of the bladder. This could be secondary to prostate tissue but cannot exclude a bladder lesion given this finding. * Hiatal hernia. * Right lung base nodule. * Low-density right renal lesion which is not well characterized on this examination. Could be solid or cystic in nature but nonemergent ultrasound could be helpful to further evaluate if this is solid or cystic in nature. Fleischner Society recommendations for solitary solid lung nodule follow up.: In a low risk patient: <6mm - No follow up required. 6-8mm - 6-[address], then CT at 18-24 months. >8mm - CT at 3 months, PET/CT or tissue sampling. In a high risk patient (history of smoking or other known risk factors): <6mm - Follow up CT at 12 months. 6-8mm - 6-[address], then CT at 18-24 months. >8mm - CT at 3 months, PET/CT or tissue sampling. Fleischner Society recommendations for multiple solid lung nodule follow up.: In a low risk patient: <6mm - No follow up required. 6-8mm - 3-[address], then CT at 18-24 months. >8mm - CT at 3-6 months, then at 18-24 months. PET/CT or tissue sampling based on most suspicious nodule. In a high risk patient (history of smoking or other known risk factors): <6mm - Follow up CT at 12 months. 6-8mm - 3-[address], then CT at 18-24 months. >8mm - CT at 3-6 months, PET/CT or tissue sampling option based on most suspicious nodule. Electronically signed by: Brandt Husain MD (02/21/2020 6:39 AM) [id number]
--- NOTE | 2020-02-21 07:43 | EKG ---
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
[2020-02-21] MEDS ORDERED: CIPROFLOXACIN 400MG PREMIX 200 ML IV ONE (07:45)
[2020-02-21] MEDS ORDERED: POTASSIUM BICARB 20 MEQ EFFERVESCENT TABLET. PEG ONE (07:45)
[2020-02-21] MEDS ORDERED: CIPR500T94 PO (08:19)
[2020-02-21] MEDS ORDERED: ONDA4TAB7 PO (08:19)
[2020-02-21 08:38] VITALS: BP 151/107
== END 2020-02-21 09:26 | disposition home or self-care (01) ==
LOC: ER 03:50
DX: N39.0 Urinary tract infection, site not specified (principal); F11.20 Opioid dependence, uncomplicated; G89.29 Other chronic pain; F17.200 Nicotine dependence, unspecified, uncomplicated; Z88.0 Allergy status to penicillin; Z88.2 Allergy status to sulfonamides; Z88.7 Allergy status to serum and vaccine
CPT/HCPCS: 36415; 74177; 80053; 81001; 82553; 83605; 83690; 83735; 84484; 85025; 85610; 85730; 87086; 93005; 96361; 96365; 96375; 99285; J0744; J2060; J2405; J3490; J7030; Q9967

== ENCOUNTER 2020-02-24 07:45 | Inpatient (IN) | payer MEDICARE ==
[~2020-02-24] VITALS: Ht 172.7 cm; Wt 68.0 kg
[~2020-02-24 07:45] MED LIST changes: +CIPR500T94 PO; +ONDA4TAB7 PO
[2020-02-24] MEDS ORDERED: IV NORMAL SALINE 1000ML BAG 1,000 ML IV ONE ×2 (08:15→12:45)
--- NOTE | 2020-02-24 08:35 | RAD ---
CT HEAD WO CONTRAST History: Altered mental status Comparison: November 16, 2019 Technique: Noncontrast CT imaging was performed of the head. Exposure: One or more of the following individualized dose reduction techniques were utilized for this examination: 1. Automated exposure control 2. Adjustment of the mA and/or kV according to patient size 3. Use of iterative reconstruction technique. Findings: There is no evidence of acute intracranial hemorrhage. There is stable mild lateral ventriculomegaly greater posteriorly, third and fourth ventricles not significantly dilated. Focus of more defined low-density of the inferior left basal ganglia may be more prominent perivascular space. There is no midline shift. Hogan-white differentiation of the major vascular territories is preserved. No acute calvarial abnormality is identified. Visualized paranasal sinuses and the mastoid air cells are aerated. Impression: 1. There is no evidence of acute intracranial hemorrhage. 2. There is stable lateral ventriculomegaly although the third ventricle not significantly dilated. Findings again may be due to more central atrophy rather than hydrocephalus. There is only exam from 4 months ago for comparison. Electronically signed by: Jimmie Resendiz MD (02/24/2020 8:32 AM) [facility] [place]
[2020-02-24] MEDS ORDERED: NALOXONE 0.4 MG/ML VIAL. IV ONE (09:00)
--- NOTE | 2020-02-24 09:06 | PHYS DOC ---
Past Medical History Past Medical History: Anxiety, Other Additional Past Medical Histor: scoliosis,CHRONIC BACK PAIN Past Surgical History: Other Additional Past Surgical Histo: bladder Smoking Status: Current Every Day Smoker Alcohol Use: None Drug Use: None Adult General Chief Complaint Chief Complaint: ALTERED MENTAL STATUS HPI HPI Patient is a 64 year old male brought by EMS from a [facility] with a chief complaint of altered mental status. Patient is well-known to EMS and yesterday patient was lying in the sun in the parking lot. EMS usually goes talks to patient and patient goes inside. This morning EMS was called as patient was lying in the lobby area of the [facility]. Patient does follow some commands. Patient does respond to sternal rub. Patient does take pain medications but does not answer if he took too many of them. Patient blood glucose is 107. There is no obvious sign of injury. Review of Systems Review of Systems Unable to perform a review of systems on the patient secondary to patient not talking. All other systems were reviewed and found to be within normal limits, except as documented in this note. Current Medications Current Medications Current Medications Medications (Trade) Dose Ordered Sig/Gabriela Start Time Stop Time Status Last Admin Dose Admin Ciprofloxacin/ Dextrose 200 ml @ 200 mls/hr 1X ONCE 02/24/20 10:30 02/24/20 11:29 DC 02/24/20 11:04 200 MLS/HR Naloxone HCl (Narcan) 0.4 mg 1X ONCE 02/24/20 09:00 02/24/20 09:06 DC 02/24/20 09:13 0.4 MG Sodium Chloride 1,000 ml @ 1,000 mls/hr 1X ONCE 02/24/20 08:15 02/24/20 09:14 DC 02/24/20 08:46 1,000 MLS/HR Allergies Allergies Allergies Coded Allergies Type Severity Reaction Last Updated Verified Penicillins Allergy Severe anaphylactic 11/13/19 Yes Sulfa (Sulfonamide Antibiotics) Allergy Severe anaphylactic 11/13/19 Yes Influenza Virus Vaccines Allergy Intermediate 01/29/20 Yes Physical Exam Physical Exam Constitutional: Well developed, well nourished, no acute distress, non-toxic appearance. [] HENT: Normocephalic, atraumatic Eyes: PERRLA, EOMI, bilateral pinpoint pupils Neck: Normal range of motion Cardiovascular:Heart rate regular rhythm Lungs & Thorax: Bilateral breath sounds clear to auscultation [] Abdomen: Soft, nontender, nondistended, no focal abdominal tenderness Extremities: No tenderness, ROM intac Neurologic: Alert Current Patient Data Vital Signs Vital Signs Date Time Temp Pulse Resp B/P (MAP) Pulse Ox O2 Delivery O2 Flow Rate FiO2 02/24/20 09:00 80 14 100 02/24/20 07:45 99.1 140/82 (101) Room Air 99.1 Lab Values Laboratory Tests Test 02/24/20 07:56 02/24/20 08:40 02/24/20 09:05 Glucose (Fingerstick) 104 mg/dL (70-99) H Urine Collection Type Unknown Urine Color Yellow Urine Clarity Clear Urine pH 7.0 (<5.0-8.0) Urine Specific [place] 1.025 (1.000-1.030) Urine Protein Negative mg/dL (NEG-TRACE) Urine Glucose (UA) Negative mg/dL (NEG) Urine Ketones (Stick) Negative mg/dL (NEG) Urine Blood Negative (NEG) Urine Nitrite Positive (NEG) Urine Bilirubin Negative (NEG) Urine Urobilinogen Dipstick 0.2 mg/dL (0.2 mg/dL) Urine Leukocyte Esterase Small (NEG) Urine RBC Occ /HPF (0-2) Urine WBC >40 /HPF (0-4) Urine Squamous Epithelial Cells Occ /LPF Urine Bacteria Many /HPF (0-FEW) Urine Mucus Mod /LPF White Blood Count 9.3 x10^3/uL (4.0-11.0) Red Blood Count 5.22 x10^6/uL (4.30-5.70) Hemoglobin 14.4 g/dL (13.0-17.5) Hematocrit 44.2 % (39.0-53.0) Mean Corpuscular Volume 85 fL (79-100) Mean Corpuscular Hemoglobin 28 pg (25-35) Mean Corpuscular Hemoglobin Concent 33 g/dL (31-37) Red Cell Distribution Width 16.3 % (11.5-14.5) H Platelet Count 278 x10^3/uL (140-400) Neutrophils (%) (Auto) 70 % (31-73) Lymphocytes (%) (Auto) 23 % (24-48) L Monocytes (%) (Auto) 7 % (0-9) Eosinophils (%) (Auto) 0 % (0-3) Basophils (%) (Auto) 0 % (0-3) Neutrophils # (Auto) 6.4 x10^3/uL (1.8-7.7) Lymphocytes # (Auto) 2.1 x10^3/uL (1.0-4.8) Monocytes # (Auto) 0.6 x10^3/uL (0.0-1.1) Eosinophils # (Auto) 0.0 x10^3/uL (0.0-0.7) Basophils # (Auto) 0.0 x10^3/uL (0.0-0.2) Sodium Level 142 mmol/L (136-145) Potassium Level 3.7 mmol/L (3.5-5.1) Chloride Level 104 mmol/L (98-107) Carbon Dioxide Level 28 mmol/L (21-32) Anion Gap 10 (6-14) Blood Urea Nitrogen 21 mg/dL (8-26) Creatinine 1.1 mg/dL (0.7-1.3) Estimated GFR (Cockcroft-Gault) 67.8 BUN/Creatinine Ratio 19 (6-20) Glucose Level 101 mg/dL (70-99) H Lactic Acid Level 3.3 mmol/L (0.4-2.0) H Calcium Level 9.1 mg/dL (8.5-10.1) Total Bilirubin 1.0 mg/dL (0.2-1.0) Aspartate Amino Transferase (AST) 17 U/L (15-37) Alanine Aminotransferase (ALT) 26 U/L (16-63) Alkaline Phosphatase 102 U/L (46-116) Ammonia < 10 mcmol/L (11-34) L Total Protein 6.8 g/dL (6.4-8.2) Albumin 3.8 g/dL (3.4-5.0) Albumin/Globulin Ratio 1.3 (1.0-1.7) Laboratory Tests 02/24/20 09:05 Laboratory Tests 02/24/20 09:05 EKG EKG EKG interpretation: HR: 82 Sinus rhythm Regular normals Normal axis Nonspecific ST changes Radiology/Procedures Radiology/Procedures [] Impressions: CT head shows no acute disease. Course & Med Decision Making Course & Med Decision Making Pertinent Labs and Imaging studies reviewed. (See chart for details) Ordered labs, UA, lactic acid, CT head, EKG, troponin EKG does not show any acute changes. Labs are within normal limits except elevated lactate of [address] head does not show any acute disease. Patient's UA shows that he has a UTI. IV antibiotics started in the ER. Even though patient is afebrile and vital signs are stable, his mental status change is most likely caused by the UTI. Patient lives by himself and so patient will need to be admitted for IV antibiotics as well as neurologic monitoring. I discussed case with Dr. Warren who is the hospitalist on-call who accepts admission. Dragon Disclaimer Dragon Disclaimer This electronic medical record was generated, in whole or in part, using a voice recognition dictation system. Departure Departure Impression: Primary Impression: UTI (urinary tract infection) Additional Impression: Altered mental status Disposition: 09 ADMITTED INPATIENT Admitting Physician: VISHAL Condition: IMPROVED Referrals: UNKNOWN PCP NAME (PCP) Problem Qualifiers KRISS DURBIN DO Feb 24, 2020 09:05
[2020-02-24 09:24] LABS: CALCIUM 9.1 mg/dL (8.5-10.1); CREATININE 1.1 mg/dL (0.7-1.3); GFR 67.8; POTASSIUM 3.7 mmol/L (3.5-5.1)
[2020-02-24 09:30] LABS: ALBUMIN 3.8 g/dL (3.4-5.0); ALBUMIN/GLOBULIN RATIO 1.3 (1.0-1.7); TOTAL PROTEIN 6.8 g/dL (6.4-8.2)
[2020-02-24 09:31] LABS: BILIRUBIN,URINE NEGATIVE (NEG); CLARITY,URINE CLEAR; COLOR,URINE YELLOW; NITRITE,URINE POSITIVE (NEG); PROTEIN,URINE NEGATIVE (NEG-TRACE); UROBILINOGEN,URINE 0.2 mg/dL (0.2 mg/dL)
--- NOTE | 2020-02-24 09:38 | EKG ---
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
[2020-02-24 09:53] LABS: RBC,URINE OCC /HPF (0-2); WBC,URINE >40 /HPF (0-4)
[2020-02-24 09:54] LABS: BACTERIA,URINE MANY /HPF (0-FEW); SQUAMOUS EPITHELIAL CELL,UR OCC /LPF
[2020-02-24 10:00] LABS: BASO % 0 % (0-3); EOS % 0 % (0-3); HEMATOCRIT 44.2 % (39.0-53.0); HEMOGLOBIN 14.4 g/dL (13.0-17.5); LYMPH # 2.1 x10^3/uL (1.0-4.8); LYMPH % 23 % (24-48); MEAN CORPUSCULAR HEMOGLOBIN 28 pg (25-35); MEAN CORPUSCULAR HGB CONC 33 g/dL (31-37); MEAN CORPUSCULAR VOLUME 85 fL (79-100); MONO # 0.6 x10^3/uL (0.0-1.1); MONO % 7 % (0-9); NEUT # 6.4 x10^3/uL (1.8-7.7); NEUT % 70 % (31-73); PLATELET COUNT 278 x10^3/uL (140-400); RED BLOOD COUNT 5.22 x10^6/uL (4.30-5.70); RED CELL DISTRIBUTION WIDTH 16.3 % (11.5-14.5); WHITE BLOOD COUNT 9.3 x10^3/uL (4.0-11.0)
[2020-02-24] MEDS ORDERED: CIPROFLOXACIN 400MG PREMIX 200 ML IV ONE (10:30)
--- NOTE | 2020-02-24 11:16 | PDOC1 ---
History and Physical Date of Admission Date of Admission DATE: 02/24/20 TIME: 11:15 Identification/Chief Complaint Chief Complaint seen in er with ams 64 year old male brought by EMS from a [facility] with a chief complaint of altered mental status. Patient is well- known to EMS and yesterday patient was lying in the sun in the parking lot. EMS usually goes talks to patient and patient goes inside. This morning EMS was called as patient was lying in the lobby area of the [facility]. does follow some commands. Patient does respond to sternal rub. Patient does take pain medications but does not answer if he took too many of them. Patient blood glucose is 107. no obvious sign of injury. UTI suspected on labs had recent epidural injection by DR AMADO DIAGNOSES: Lumbar radiculopathy with lumbar degenerative disk disease. PROCEDURE: Lumbar epidural steroid injection, translaminar approach at L4-L5 level using C-arm fluoroscopic guidance under sterile prep and drape using local anesthetic. MEDICATION INJECTED: A total of 120 mg Depo-Medrol plus 10 mL of preservative-free normal saline and 2 mL of contrast. Past Medical History Past Medical History Past Medical History Past Medical History Past Medical History: Anxiety, Other Additional Past Medical Histor: scoliosis,CHRONIC BACK PAIN Past Surgical History: Other Additional Past Surgical Histo: bladder Smoking Status: Current Every Day Smoker Alcohol Use: None Drug Use: None FHX COPD Renal/: No pertinent hx Family History Family History: High Cholestrol Social History Smoke: <1 pack per day ALCOHOL: none Drugs: None Current Medications Current Medications Current Medications Sodium Chloride 1,000 ml @ 1,000 mls/hr 1X ONCE IV Last administered on 02/24/20at 08:46; Start 02/24/20 at 08:15; Stop 02/24/20 at 09:14; Status DC Naloxone HCl (Narcan) 0.4 mg 1X ONCE IV Last administered on 02/24/20at 09:13; Start 02/24/20 at 09:00; Stop 02/24/20 at 09:06; Status DC Ciprofloxacin/ Dextrose 200 ml @ 200 mls/hr 1X ONCE IV Last administered on 02/24/20at 11:04; Start 02/24/20 at 10:30; Stop 02/24/20 at 11:29 Active Scripts Active Cipro (Ciprofloxacin Hcl) 500 Mg Tablet 1 Tab PO BID 10 Days Zofran (Ondansetron Hcl) 4 Mg Tablet 4 Mg PO PRN TID PRN 7 Days nausea/vomiting Promethazine Hcl 25 Mg Supp.rect 25 Mg RC Q6H PRN Reported Ciprofloxacin Hcl 250 Mg Tablet Unknown Dose PO BID Cymbalta (Duloxetine Hcl) 30 Mg Capsule.dr 1 Cap PO DAILY Cymbalta (Duloxetine Hcl) 60 Mg Capsule.dr 1 Cap PO DAILY Flomax (Tamsulosin Hcl) 0.4 Mg Cap.er.24h 0.4 Mg PO DAILY Magnesium (Magnesium Oxide) 400 Mg Tablet 1 Tab PO BID 30 Days NEEDED Mirtazapine 15 Mg Tab.rapdis 1 Tab PO QHS 30 Days Olanzapine 5 Mg Tablet 1 Tab PO QHS Finasteride 5 Mg Tablet 1 Tab PO DAILY Trazodone Hcl 100 Mg Tablet 1 Tab PO QHS Gabapentin (Gabapentin) 300 Mg Capsule 300 Mg PO TID Vitamin D3 (Cholecalciferol (Vitamin D3)) 2,000 Unit Tab.chew 1 Tab PO DAILY 30 Days Allergies Allergies: Coded Allergies: Penicillins (Verified Allergy, Severe, anaphylactic, 11/13/19) Sulfa (Sulfonamide Antibiotics) (Verified Allergy, Severe, anaphylactic, 11/13/19) Influenza Virus Vaccines (Verified Allergy, Intermediate, 01/29/20) ROS Review of System Unable to perform a review of systems on the patient secondary to patient not t alking. 14 pt systems were reviewed and found to be within normal limits, except as documented Gastrointestinal: Yes Abdominal Pain Physical Exam Physical Exam Physical Exam Physical Exam Constitutional: Well developed, well nourished, no acute distress, non-toxic appearance. [] HENT: Normocephalic, atraumatic Eyes: PERRLA, EOMI, bilateral pinpoint pupils Neck: Normal range of motion Cardiovascular:Heart rate regular rhythm Lungs & Thorax: Bilateral breath sounds clear to auscultation [] Abdomen: Soft, nontender, nondistended, no focal abdominal tenderness Extremities: No tenderness, ROM intac Neurologic: awake, but not responsive to questions HEENT: Mucous membr. moist/pink Lungs: Clear to auscultation, Normal air movement Heart: RRR Abdomen: Soft, Other (mild tenderness ) Rectal Exam: not examined PELVIC: Examination not indicated Extremities: No cyanosis, No edema Neuro: Cranial nerves 3-12 NL Vitals Vitals Vital Signs Date Time Temp Pulse Resp B/P (MAP) Pulse Ox O2 Delivery O2 Flow Rate FiO2 02/24/20 09:00 80 14 100 02/24/20 07:45 99.1 140/82 (101) Room Air 99.1 Labs Labs Laboratory Tests Test 02/24/20 07:56 02/24/20 08:40 02/24/20 09:05 Glucose (Fingerstick) 104 mg/dL (70-99) Urine Collection Type Unknown Urine Color Yellow Urine Clarity Clear Urine pH 7.0 (<5.0-8.0) Urine Specific [place] 1.025 (1.000-1.030) Urine Protein Negative mg/dL (NEG-TRACE) Urine Glucose (UA) Negative mg/dL (NEG) Urine Ketones (Stick) Negative mg/dL (NEG) Urine Blood Negative (NEG) Urine Nitrite Positive (NEG) Urine Bilirubin Negative (NEG) Urine Urobilinogen Dipstick 0.2 mg/dL (0.2 mg/dL) Urine Leukocyte Esterase Small (NEG) Urine RBC Occ /HPF (0-2) Urine WBC >40 /HPF (0-4) Urine Squamous Epithelial Cells Occ /LPF Urine Bacteria Many /HPF (0-FEW) Urine Mucus Mod /LPF White Blood Count 9.3 x10^3/uL (4.0-11.0) Red Blood Count 5.22 x10^6/uL (4.30-5.70) Hemoglobin 14.4 g/dL (13.0-17.5) Hematocrit 44.2 % (39.0-53.0) Mean Corpuscular Volume 85 fL (79-100) Mean Corpuscular Hemoglobin 28 pg (25-35) Mean Corpuscular Hemoglobin Concent 33 g/dL (31-37) Red Cell Distribution Width 16.3 % (11.5-14.5) Platelet Count 278 x10^3/uL (140-400) Neutrophils (%) (Auto) 70 % (31-73) Lymphocytes (%) (Auto) 23 % (24-48) Monocytes (%) (Auto) 7 % (0-9) Eosinophils (%) (Auto) 0 % (0-3) Basophils (%) (Auto) 0 % (0-3) Neutrophils # (Auto) 6.4 x10^3/uL (1.8-7.7) Lymphocytes # (Auto) 2.1 x10^3/uL (1.0-4.8) Monocytes # (Auto) 0.6 x10^3/uL (0.0-1.1) Eosinophils # (Auto) 0.0 x10^3/uL (0.0-0.7) Basophils # (Auto) 0.0 x10^3/uL (0.0-0.2) Sodium Level 142 mmol/L (136-145) Potassium Level 3.7 mmol/L (3.5-5.1) Chloride Level 104 mmol/L (98-107) Carbon Dioxide Level 28 mmol/L (21-32) Anion Gap 10 (6-14) Blood Urea Nitrogen 21 mg/dL (8-26) Creatinine 1.1 mg/dL (0.7-1.3) Estimated GFR (Cockcroft-Gault) 67.8 BUN/Creatinine Ratio 19 (6-20) Glucose Level 101 mg/dL (70-99) Lactic Acid Level 3.3 mmol/L (0.4-2.0) Calcium Level 9.1 mg/dL (8.5-10.1) Total Bilirubin 1.0 mg/dL (0.2-1.0) Aspartate Amino Transf (AST/SGOT) 17 U/L (15-37) Alanine Aminotransferase (ALT/SGPT) 26 U/L (16-63) Alkaline Phosphatase 102 U/L (46-116) Ammonia < 10 mcmol/L (11-34) Total Protein 6.8 g/dL (6.4-8.2) Albumin 3.8 g/dL (3.4-5.0) Albumin/Globulin Ratio 1.3 (1.0-1.7) Laboratory Tests Test 02/24/20 07:56 02/24/20 08:40 02/24/20 09:05 Glucose (Fingerstick) 104 mg/dL (70-99) Urine Collection Type Unknown Urine Color Yellow Urine Clarity Clear Urine pH 7.0 (<5.0-8.0) Urine Specific [place] 1.025 (1.000-1.030) Urine Protein Negative mg/dL (NEG-TRACE) Urine Glucose (UA) Negative mg/dL (NEG) Urine Ketones (Stick) Negative mg/dL (NEG) Urine Blood Negative (NEG) Urine Nitrite Positive (NEG) Urine Bilirubin Negative (NEG) Urine Urobilinogen Dipstick 0.2 mg/dL (0.2 mg/dL) Urine Leukocyte Esterase Small (NEG) Urine RBC Occ /HPF (0-2) Urine WBC >40 /HPF (0-4) Urine Squamous Epithelial Cells Occ /LPF Urine Bacteria Many /HPF (0-FEW) Urine Mucus Mod /LPF White Blood Count 9.3 x10^3/uL (4.0-11.0) Red Blood Count 5.22 x10^6/uL (4.30-5.70) Hemoglobin 14.4 g/dL (13.0-17.5) Hematocrit 44.2 % (39.0-53.0) Mean Corpuscular Volume 85 fL (79-100) Mean Corpuscular Hemoglobin 28 pg (25-35) Mean Corpuscular Hemoglobin Concent 33 g/dL (31-37) Red Cell Distribution Width 16.3 % (11.5-14.5) Platelet Count 278 x10^3/uL (140-400) Neutrophils (%) (Auto) 70 % (31-73) Lymphocytes (%) (Auto) 23 % (24-48) Monocytes (%) (Auto) 7 % (0-9) Eosinophils (%) (Auto) 0 % (0-3) Basophils (%) (Auto) 0 % (0-3) Neutrophils # (Auto) 6.4 x10^3/uL (1.8-7.7) Lymphocytes # (Auto) 2.1 x10^3/uL (1.0-4.8) Monocytes # (Auto) 0.6 x10^3/uL (0.0-1.1) Eosinophils # (Auto) 0.0 x10^3/uL (0.0-0.7) Basophils # (Auto) 0.0 x10^3/uL (0.0-0.2) Sodium Level 142 mmol/L (136-145) Potassium Level 3.7 mmol/L (3.5-5.1) Chloride Level 104 mmol/L (98-107) Carbon Dioxide Level 28 mmol/L (21-32) Anion Gap 10 (6-14) Blood Urea Nitrogen 21 mg/dL (8-26) Creatinine 1.1 mg/dL (0.7-1.3) Estimated GFR (Cockcroft-Gault) 67.8 BUN/Creatinine Ratio 19 (6-20) Glucose Level 101 mg/dL (70-99) Lactic Acid Level 3.3 mmol/L (0.4-2.0) Calcium Level 9.1 mg/dL (8.5-10.1) Total Bilirubin 1.0 mg/dL (0.2-1.0) Aspartate Amino Transf (AST/SGOT) 17 U/L (15-37) Alanine Aminotransferase (ALT/SGPT) 26 U/L (16-63) Alkaline Phosphatase 102 U/L (46-116) Ammonia < 10 mcmol/L (11-34) Total Protein 6.8 g/dL (6.4-8.2) Albumin 3.8 g/dL (3.4-5.0) Albumin/Globulin Ratio 1.3 (1.0-1.7) Images Images CT HEAD WO CONTRAST History: Altered mental status Comparison: November 16, 2019 Technique: Noncontrast CT imaging was performed of the head. Exposure: One or more of the following individualized dose reduction techniques were utilized for this examination: 1. Automated exposure control 2. Adjustment of the mA and/or kV according to patient size 3. Use of iterative reconstruction technique. Findings: There is no evidence of acute intracranial hemorrhage. There is stable mild lateral ventriculomegaly greater posteriorly, third and fourth ventricles not significantly dilated. Focus of more defined low-density of the inferior left basal ganglia may be more prominent perivascular space. There is no midline shift. Hogan-white differentiation of the major vascular territories is preserved. No acute calvarial abnormality is identified. Visualized paranasal sinuses and the mastoid air cells are aerated. Impression: 1. There is no evidence of acute intracranial hemorrhage. 2. There is stable lateral ventriculomegaly although the third ventricle not significantly dilated. Findings again may be due to more central atrophy rather than hydrocephalus. There is only exam from 4 months ago for comparison. Electronically signed by: Odessa Oconnell MD (02/24/2020 8:32 AM) [facility] [place] DICTATED and SIGNED BY: ODESSA OCONNELL MD DATE: 02/24/20 0832 VTE Prophylaxis Ordered VTE Prophylaxis Devices: Yes VTE Pharmacological Prophylaxi: Yes Assessment/Plan Assessment/Plan Impression: UTI (urinary tract infection) sepsis Altered mental status multifactorial due to uti and narcotics on ct head / stable lateral ventriculomegaly although the third ventricle not significantly dilated. Findings again may be due to more central atrophy rather than hydrocephalus. bilateral lower extremity pain, right greater than left for many years, worse over the past year 02/16/20 Lumbar epidural steroid injection, translaminar approach at L4-L5 level using C-arm fluoroscopic guidance under sterile prep and drape using local anesthetic. ADMITTED blood cult iv antibiotics dvt prophylaxis neurology consult floow lactic acid hold narcotics, and sedating meds ID CONSULT DRUG SCREEN , URINE ESR PROCALCITONIN CXR 73 MIN pt exam, chart review, > 50% of time spent with exam, chart review, pt care coordination GUY COLEMAN MD Feb 24, 2020 11:16
[2020-02-24] MEDS ORDERED: guaiFENesin ORAL 200 MG/10 ML LIQUID. PO PRN (13:30)
[2020-02-24] MEDS ORDERED: SODIUM PHOSPHATES 19/7GM 133 ML ENEMA. PR PRN (13:30)
[2020-02-24] MEDS ORDERED: IPRATRPIUM/ALBUTEROL 0.5/2.5MG 3 ML NEBU. NEB SCH (13:30)
[2020-02-24] MEDS ORDERED: MAG HYDROX/ALUMINUM HYD/SIMETH 30 ML ORAL.SUSP PO PRN (13:30)
[2020-02-24] MEDS ORDERED: cloNIDine HCL 0.1 MG TABLET PO PRN (13:30)
[2020-02-24] MEDS ORDERED: DOCUSATE SODIUM 100 MG CAPSULE. PO PRN (13:30)
[2020-02-24] MEDS ORDERED: 0.9 % SODIUM CHLORIDE 10 ML DISP.SYRIN. IV PRN (13:30)
[2020-02-24] MEDS ORDERED: ONDANSETRON PF 4 MG/2 ML VIAL. IV PRN (13:30)
[2020-02-24] MEDS ORDERED: ACETAMINOPHEN 325 MG TABLET. PO PRN (13:30)
[2020-02-24] MEDS: MEROPENEM 500 MG in IV NORMAL SALINE 50ML 50 ML IV SCH ×3 (13:53→23:39)
[2020-02-24] MEDS ORDERED: MEROPENEM 1 GM in IV NORMAL SALINE 100ML 100 ML IV SCH (14:00)
--- NOTE | 2020-02-24 14:04 | RAD ---
CHEST AP ONLY History: Sepsis Comparison: None. Findings: Low lung volumes. Bibasilar opacities. No pleural effusion. No pneumothorax. Normal heart size. Impression: 1. Low lung volumes with bibasilar opacities, likely atelectasis. Electronically signed by: Alen Duffy DO (02/24/2020 2:01 PM) [id number]
[2020-02-24 14:45] VITALS: BP 154/89
[2020-02-24] MEDS ORDERED: ALBUTEROL SULFATE 2.5 MG/3 ML NEBU. NEB PRN (15:00)
[2020-02-24] MEDS ORDERED: ASPIRIN 325 MG TABLET PO ONE (16:00)
[2020-02-24] MEDS: FINASTERIDE 5 MG TABLET. PO SCH (16:15)
[2020-02-24] MEDS: DULoxetine HCL 30 MG CAPSULE.DR PO SCH (16:15)
[2020-02-24] MEDS: TAMSULOSIN 0.4 MG CAP.ER.24H. PO SCH (16:16)
[2020-02-24 16:22] LABS: BARBITURATES NEG (NEG); BENZODIAZEPINES NEG (NEG); CANNABINOIDS NEG (NEG); COCAINE NEG (NEG); METHADONE NEG (NEG); OPIATES NEG (NEG); PHENCYCLIDINE NEG (NEG)
[2020-02-24 16:26] LABS: AMPHETAMINE/METHAMPHETAMINE NEG (NEG)
[2020-02-24 16:36] LABS: BARBITURATES NEG (NEG); BENZODIAZEPINES NEG (NEG); CANNABINOIDS NEG (NEG); COCAINE NEG (NEG); METHADONE NEG (NEG); OPIATES NEG (NEG); PHENCYCLIDINE NEG (NEG)
[2020-02-24 16:37] LABS: AMPHETAMINE/METHAMPHETAMINE NEG (NEG)
[2020-02-24] MEDS: IV NORMAL SALINE 1000ML BAG 1,000 ML IV SCH (16:58)
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
[2020-02-24] MEDS: CHOLECALCIFEROL (VITAMIN D3) 1,000 UNIT TABLET PO SCH (18:08)
--- NOTE | 2020-02-24 18:45 | NUR ---
More awake. stated that he has a plan butt is non specific regarding method. nursing process supervisor notified.
[2020-02-24 19:23] VITALS: BP 124/82
[2020-02-24] MEDS ORDERED: OLANZapine IM 10 MG VIAL. IM ONE (20:00)
[2020-02-24] MEDS: MAGNESIUM OXIDE 400 MG TABLET PO SCH (21:18)
[2020-02-24] MEDS: traZODone 100 MG TABLET. PO SCH (21:19)
[2020-02-24] MEDS: MIRTAZAPINE 15 MG TABLET PO SCH (21:19)
[2020-02-24] MEDS: ENOXAPARIN 40 MG/0.4 ML SYRINGE. SQ SCH (21:19)
[2020-02-24] MEDS: GABAPENTIN 300 MG CAPSULE. PO SCH (21:19)
[2020-02-24] MEDS: LIDOCAINE (700MG/PATCH) PATCH. TD SCH (21:26)
[2020-02-24] MEDS: traMADol 50 MG TABLET PO PRN (21:27)
[2020-02-24 22:56] VITALS: BP 149/117
--- NOTE | 2020-02-24 23:01 | NUR ---
Pt continues to be restless, up and down the bed and chair, walking in the room. Alert to self. Knows he's in hospital but doesnt know what hospital. Pt couldnt remember date.
[2020-02-25] MEDS: IV NORMAL SALINE 1000ML BAG 1,000 ML IV SCH ×3 (02:00→20:27)
[2020-02-25 02:14] VITALS: BP 115/68
--- NOTE | 2020-02-25 05:46 | NUR ---
Pt able to settle down in bed by 0230am. Currently still sleeping. Pt verbalized earlier by 12mn that he's the only one here in [place], that he's by himself. He said that he'll probably just by cutting a vein. Pt is closely monitored, on 1:1. PAT team consulted.
[2020-02-25] MEDS: MEROPENEM 500 MG in IV NORMAL SALINE 50ML 50 ML IV SCH ×4 (05:55→23:39)
[2020-02-25 07:00] VITALS: BP 121/70
[2020-02-25] MEDS: MAGNESIUM OXIDE 400 MG TABLET PO SCH ×2 (07:59→20:27)
[2020-02-25] MEDS: TAMSULOSIN 0.4 MG CAP.ER.24H. PO SCH (07:59)
[2020-02-25] MEDS: traMADol 50 MG TABLET PO PRN ×3 (07:59→23:04)
[2020-02-25] MEDS: CHOLECALCIFEROL (VITAMIN D3) 1,000 UNIT TABLET PO SCH (07:59)
[2020-02-25] MEDS: DULoxetine HCL 30 MG CAPSULE.DR PO SCH (07:59)
[2020-02-25] MEDS: FINASTERIDE 5 MG TABLET. PO SCH (07:59)
[2020-02-25] MEDS: GABAPENTIN 300 MG CAPSULE. PO SCH ×3 (07:59→20:27)
[2020-02-25] MEDS: PATCH REMOVAL. MC SCH (08:03)
[2020-02-25 08:42] LABS: CHOLESTEROL/HDL RATIO 2.9
[2020-02-25] MEDS ORDERED: NON FORMULARY ITEM (Duloxetine Hcl (Cymbalta) 1 CAP) PO SCH (09:00)
--- NOTE | 2020-02-25 09:01 | PDOC ---
Infectious Disease Note Vital Sign Vital Signs Vital Signs Date Time Temp Pulse Resp B/P (MAP) Pulse Ox O2 Delivery O2 Flow Rate FiO2 02/25/20 08:00 Room Air 02/25/20 07:00 97.6 68 17 121/70 (87) 96 97.6 Labs Lab Laboratory Tests Test 02/24/20 09:05 02/24/20 13:20 02/24/20 14:10 02/24/20 16:20 White Blood Count 9.3 x10^3/uL (4.0-11.0) Red Blood Count 5.22 x10^6/uL (4.30-5.70) Hemoglobin 14.4 g/dL (13.0-17.5) Hematocrit 44.2 % (39.0-53.0) Mean Corpuscular Volume 85 fL (79-100) Mean Corpuscular Hemoglobin 28 pg (25-35) Mean Corpuscular Hemoglobin Concent 33 g/dL (31-37) Red Cell Distribution Width 16.3 % (11.5-14.5) Platelet Count 278 x10^3/uL (140-400) Neutrophils (%) (Auto) 70 % (31-73) Lymphocytes (%) (Auto) 23 % (24-48) Monocytes (%) (Auto) 7 % (0-9) Eosinophils (%) (Auto) 0 % (0-3) Basophils (%) (Auto) 0 % (0-3) Neutrophils # (Auto) 6.4 x10^3/uL (1.8-7.7) Lymphocytes # (Auto) 2.1 x10^3/uL (1.0-4.8) Monocytes # (Auto) 0.6 x10^3/uL (0.0-1.1) Eosinophils # (Auto) 0.0 x10^3/uL (0.0-0.7) Basophils # (Auto) 0.0 x10^3/uL (0.0-0.2) Sodium Level 142 mmol/L (136-145) Potassium Level 3.7 mmol/L (3.5-5.1) Chloride Level 104 mmol/L (98-107) Carbon Dioxide Level 28 mmol/L (21-32) Anion Gap 10 (6-14) Blood Urea Nitrogen 21 mg/dL (8-26) Creatinine 1.1 mg/dL (0.7-1.3) Estimated GFR (Cockcroft-Gault) 67.8 BUN/Creatinine Ratio 19 (6-20) Glucose Level 101 mg/dL (70-99) Lactic Acid Level 3.3 mmol/L (0.4-2.0) 1.8 mmol/L (0.4-2.0) Calcium Level 9.1 mg/dL (8.5-10.1) Total Bilirubin 1.0 mg/dL (0.2-1.0) Aspartate Amino Transf (AST/SGOT) 17 U/L (15-37) Alanine Aminotransferase (ALT/SGPT) 26 U/L (16-63) Alkaline Phosphatase 102 U/L (46-116) Ammonia < 10 mcmol/L (11-34) Total Protein 6.8 g/dL (6.4-8.2) Albumin 3.8 g/dL (3.4-5.0) Albumin/Globulin Ratio 1.3 (1.0-1.7) Procalcitonin < 0.10 ng/mL (0.00-0.10) Erythrocyte Sedimentation Rate 4 (0-15) Urine Opiates Screen Neg (NEG) Urine Methadone Screen Neg (NEG) Urine Barbiturates Neg (NEG) Urine Phencyclidine Screen Neg (NEG) Urine Amphetamine/Methamphetamine Neg (NEG) Urine Benzodiazepines Screen Neg (NEG) Urine Cocaine Screen Neg (NEG) Urine Cannabinoids Screen Neg (NEG) Urine Ethyl Alcohol Neg (NEG) Test 02/25/20 08:00 Triglycerides Level 62 mg/dL (0-150) Cholesterol Level 112 mg/dL (0-200) LDL Cholesterol, Calculated 61 mg/dL (0-100) VLDL Cholesterol, Calculated 12 mg/dL (0-40) Non-HDL Cholesterol Calculated 73 mg/dL (0-129) HDL Cholesterol 39 mg/dL (40-60) Cholesterol/HDL Ratio 2.9 Objective Assessment pt seen, consult dictated Plan Plan of Care / ALMITA PEARCE MD Feb 25, 2020 09:01
--- NOTE | 2020-02-25 10:03 | CONS ---
DATE OF CONSULTATION: 02/25/2020 REQUESTING PHYSICIAN: Dr. Warren. REASON FOR CONSULTATION: UTI and sepsis. HISTORY OF PRESENT ILLNESS: This is a 64-year-old gentleman who was in a care home community and was found with altered mental status. The patient has done this multiple times in the past as he is found lying in the sun in the parking lot and EMS usually goes and talks to the patient and the patient goes inside. At this time, he did not respond. His blood glucose was normal. He does have a chronic pain problem, on the pain medication, recent epidural injection done for the pain. The patient was found to have abnormal urinalysis, lactic acid up to 3.3. Rest of the workup was negative so far. The patient is now alert, awake and appropriate and talking and making sense. Denies any nausea, vomiting, diarrhea. Denies any chest pain, shortness of breath, abdominal pain, headache or visual symptoms. PAST MEDICAL HISTORY: Positive for chronic back problem with recent Depo-Medrol done; anxiety disorder; psychiatric illness. SOCIAL HISTORY: Positive for smoking. Negative for alcohol use or drug use. ALLERGIES: LISTED ALLERGIC TO PENICILLIN AND SULFA. CURRENT MEDICATIONS: The patient is on meropenem. REVIEW OF SYSTEMS: As per HPI, all other systems reviewed and are negative. PHYSICAL EXAMINATION: GENERAL: Awake gentleman, who is alert, awake, appropriate, and not in distress. VITAL SIGNS: Stable, afebrile. T-max is 99.5. HEENT: Both pupils are round and reacting. No conjunctival lesion, no lesion in the mouth. NECK: Supple, no JVP, no lymphadenopathy. LUNGS: Clear. HEART: S1, S2 regular. ABDOMEN: Soft, nontender, no organomegaly. EXTREMITIES: No edema, cyanosis. SKIN: Unremarkable. NEUROLOGIC: The patient is alert, awake and appropriate. No focal neurologic deficit. LABORATORY DATA: White count is normal. Sed rate is 4. BUN and creatinine is normal. Lactic acid initially was 3.3, which improved to normal. Ammonia level less than 10. Liver functions are normal. Urinalysis showed more than 40 wbc's. Urine culture is pending. Drug screen is negative. Chest x-ray is unremarkable other than bibasilar atelectasis. The patient is not requiring any oxygen. CT head had stable lateral ventriculomegaly. IMPRESSION: 1. Encephalopathy, etiology is unclear. The patient does have abnormal urinalysis, but that is not alone able to completely explain especially he is not back to normal right now. 2. Urinary tract infection. 3. Lactic acidosis. 4. Behavioral disorder. 5. Hydrocephalus. RECOMMENDATIONS: Continue meropenem for the time being. We will check the urinary cultures and scale down, supportive care and we will continue to follow. Thank you very much, Dr. Warren, for giving me the opportunity to participate in this patient's care. ALMITA PEARCE MD DR: ZANE/heidi JOB#: [id number] / [id number]
--- NOTE | 2020-02-25 10:42 | PDOC ---
PROGRESS NOTES History of Present Illness History of Present Illness VTE Prophylaxis Ordered VTE Prophylaxis Devices: Yes VTE Pharmacological Prophylaxi: Yes Assessment/Plan Assessment/Plan Impression: UTI (urinary tract infection) sepsis Altered mental status multifactorial due to uti and narcotics? on ct head 02/23 stable lateral ventriculomegaly although the third ventricle not significantly dilated. Findings again may be due to more central atrophy rather than hydrocephalus. bilateral lower extremity pain, right greater than left for many years, worse over the past year 02/16/20 Lumbar epidural steroid injection, translaminar approach at L4-L5 level using C-arm fluoroscopic guidance under sterile prep and drape using lo jovanni anesthetic. ADMITTED blood cult iv antibiotics dvt prophylaxis neurology consult floow lactic acid hold narcotics, and sedating meds ID CONSULT DRUG SCREEN , URINE ESR PROCALCITONIN CXR 02/24 more alert, neurology consult pending, continue iv merem q 8 hrs ESR only 4 thinks this is February 25 37 MIN pt exam, chart review, > 50% of time spent with exam, chart review, pt care coordination GUY COLEMAN MD Feb 24, 2020 11:16 Addendum: GUY COLEMAN MD on 02/24/20 @ 16:09 CHEST AP ONLY History: Sepsis Comparison: None. Findings: Low lung volumes. Bibasilar opacities. No pleural effusion. No pneumothorax. Normal heart size. Impression: 1. Low lung volumes with bibasilar opacities, likely atelectasis. Electronically signed by: Alen Duffy DO (02/24/2020 2:01 PM) [id number] Vitals Vitals Vital Signs Date Time Temp Pulse Resp B/P (MAP) Pulse Ox O2 Delivery O2 Flow Rate FiO2 02/25/20 09:20 Room Air 02/25/20 07:00 97.6 68 17 121/70 (87) 96 97.6 Physical Exam Physical Exam Cardiovascular:Heart rate regular rhythm Lungs & Thorax: Bilateral breath sounds clear to auscultation [] Abdomen: Soft, nontender, nondistended, no focal abdominal tenderness Extremities: No tenderness, ROM intac Neurologic: awake, HEENT: Mucous membr. moist/pink Lungs: Clear to auscultation, Normal air movement Heart: RRR Abdomen: Soft, Rectal Exam: not examined PELVIC: Examination not indicated Extremities: No cyanosis, No edema Neuro: Cranial nerves 3-12 NL oriented to month not day General: Alert, Oriented X3, Cooperative, No acute distress Heart: Regular rate, Normal S1 Lungs: Clear Abdomen: Normal bowel sounds, Soft, No tenderness, Other (mild tenderness ) Extremities: No clubbing, No cyanosis, No edema Labs LABS Laboratory Tests Test 02/24/20 13:20 02/24/20 14:10 02/24/20 16:20 02/25/20 08:00 Lactic Acid Level 1.8 mmol/L (0.4-2.0) Erythrocyte Sedimentation Rate 4 (0-15) Urine Opiates Screen Neg (NEG) Urine Methadone Screen Neg (NEG) Urine Barbiturates Neg (NEG) Urine Phencyclidine Screen Neg (NEG) Urine Amphetamine/Methamphetamine Neg (NEG) Urine Benzodiazepines Screen Neg (NEG) Urine Cocaine Screen Neg (NEG) Urine Cannabinoids Screen Neg (NEG) Urine Ethyl Alcohol Neg (NEG) Triglycerides Level 62 mg/dL (0-150) Cholesterol Level 112 mg/dL (0-200) LDL Cholesterol, Calculated 61 mg/dL (0-100) VLDL Cholesterol, Calculated 12 mg/dL (0-40) Non-HDL Cholesterol Calculated 73 mg/dL (0-129) HDL Cholesterol 39 mg/dL (40-60) Cholesterol/HDL Ratio 2.9 Assessment and Plan Assessmemt and Plan Problems Medical Problems: (1) Altered mental status Status: Acute (2) UTI (urinary tract infection) Status: Acute Comment Review of Relevant I have reviewed the following items willem (where applicable) has been applied. Labs Laboratory Tests Test 02/24/20 07:56 02/24/20 08:40 02/24/20 09:05 02/24/20 13:20 Glucose (Fingerstick) 104 mg/dL (70-99) Urine Collection Type Unknown Urine Color Yellow Urine Clarity Clear Urine pH 7.0 (<5.0-8.0) Urine Specific [place] 1.025 (1.000-1.030) Urine Protein Negative mg/dL (NEG-TRACE) Urine Glucose (UA) Negative mg/dL (NEG) Urine Ketones (Stick) Negative mg/dL (NEG) Urine Blood Negative (NEG) Urine Nitrite Positive (NEG) Urine Bilirubin Negative (NEG) Urine Urobilinogen Dipstick 0.2 mg/dL (0.2 mg/dL) Urine Leukocyte Esterase Small (NEG) Urine RBC Occ /HPF (0-2) Urine WBC >40 /HPF (0-4) Urine Squamous Epithelial Cells Occ /LPF Urine Bacteria Many /HPF (0-FEW) Urine Mucus Mod /LPF Vitamin B12 Level 705 pg/mL (247-911) Thyroid Stimulating Hormone (TSH) 1.181 uIU/mL (0.358-3.74) Urine Opiates Screen Neg (NEG) Urine Methadone Screen Neg (NEG) Urine Barbiturates Neg (NEG) Urine Phencyclidine Screen Neg (NEG) Urine Amphetamine/Methamphetamine Neg (NEG) Urine Benzodiazepines Screen Neg (NEG) Urine Cocaine Screen Neg (NEG) Urine Cannabinoids Screen Neg (NEG) Urine Ethyl Alcohol Neg (NEG) White Blood Count 9.3 x10^3/uL (4.0-11.0) Red Blood Count 5.22 x10^6/uL (4.30-5.70) Hemoglobin 14.4 g/dL (13.0-17.5) Hematocrit 44.2 % (39.0-53.0) Mean Corpuscular Volume 85 fL (79-100) Mean Corpuscular Hemoglobin 28 pg (25-35) Mean Corpuscular Hemoglobin Concent 33 g/dL (31-37) Red Cell Distribution Width 16.3 % (11.5-14.5) Platelet Count 278 x10^3/uL (140-400) Neutrophils (%) (Auto) 70 % (31-73) Lymphocytes (%) (Auto) 23 % (24-48) Monocytes (%) (Auto) 7 % (0-9) Eosinophils (%) (Auto) 0 % (0-3) Basophils (%) (Auto) 0 % (0-3) Neutrophils # (Auto) 6.4 x10^3/uL (1.8-7.7) Lymphocytes # (Auto) 2.1 x10^3/uL (1.0-4.8) Monocytes # (Auto) 0.6 x10^3/uL (0.0-1.1) Eosinophils # (Auto) 0.0 x10^3/uL (0.0-0.7) Basophils # (Auto) 0.0 x10^3/uL (0.0-0.2) Sodium Level 142 mmol/L (136-145) Potassium Level 3.7 mmol/L (3.5-5.1) Chloride Level 104 mmol/L (98-107) Carbon Dioxide Level 28 mmol/L (21-32) Anion Gap 10 (6-14) Blood Urea Nitrogen 21 mg/dL (8-26) Creatinine 1.1 mg/dL (0.7-1.3) Estimated GFR (Cockcroft-Gault) 67.8 BUN/Creatinine Ratio 19 (6-20) Glucose Level 101 mg/dL (70-99) Lactic Acid Level 3.3 mmol/L (0.4-2.0) 1.8 mmol/L (0.4-2.0) Calcium Level 9.1 mg/dL (8.5-10.1) Total Bilirubin 1.0 mg/dL (0.2-1.0) Aspartate Amino Transf (AST/SGOT) 17 U/L (15-37) Alanine Aminotransferase (ALT/SGPT) 26 U/L (16-63) Alkaline Phosphatase 102 U/L (46-116) Ammonia < 10 mcmol/L (11-34) Total Protein 6.8 g/dL (6.4-8.2) Albumin 3.8 g/dL (3.4-5.0) Albumin/Globulin Ratio 1.3 (1.0-1.7) Procalcitonin < 0.10 ng/mL (0.00-0.10) Test 02/24/20 14:10 02/24/20 16:20 02/25/20 08:00 Erythrocyte Sedimentation Rate 4 (0-15) Urine Opiates Screen Neg (NEG) Urine Methadone Screen Neg (NEG) Urine Barbiturates Neg (NEG) Urine Phencyclidine Screen Neg (NEG) Urine Amphetamine/Methamphetamine Neg (NEG) Urine Benzodiazepines Screen Neg (NEG) Urine Cocaine Screen Neg (NEG) Urine Cannabinoids Screen Neg (NEG) Urine Ethyl Alcohol Neg (NEG) Triglycerides Level 62 mg/dL (0-150) Cholesterol Level 112 mg/dL (0-200) LDL Cholesterol, Calculated 61 mg/dL (0-100) VLDL Cholesterol, Calculated 12 mg/dL (0-40) Non-HDL Cholesterol Calculated 73 mg/dL (0-129) HDL Cholesterol 39 mg/dL (40-60) Cholesterol/HDL Ratio 2.9 Laboratory Tests Test 02/24/20 13:20 02/24/20 14:10 02/24/20 16:20 4/3/20 08:00 Lactic Acid Level 1.8 mmol/L (0.4-2.0) Erythrocyte Sedimentation Rate 4 (0-15) Urine Opiates Screen Neg (NEG) Urine Methadone Screen Neg (NEG) Urine Barbiturates Neg (NEG) Urine Phencyclidine Screen Neg (NEG) Urine Amphetamine/Methamphetamine Neg (NEG) Urine Benzodiazepines Screen Neg (NEG) Urine Cocaine Screen Neg (NEG) Urine Cannabinoids Screen Neg (NEG) Urine Ethyl Alcohol Neg (NEG) Triglycerides Level 62 mg/dL (0-150) Cholesterol Level 112 mg/dL (0-200) LDL Cholesterol, Calculated 61 mg/dL (0-100) VLDL Cholesterol, Calculated 12 mg/dL (0-40) Non-HDL Cholesterol Calculated 73 mg/dL (0-129) HDL Cholesterol 39 mg/dL (40-60) Cholesterol/HDL Ratio 2.9 Medications Current Medications Sodium Chloride 1,000 ml @ 1,000 mls/hr 1X ONCE IV Last administered on 02/24/20at 08:46; Start 02/24/20 at 08:15; Stop 02/24/20 at 09:14; Status DC Naloxone HCl (Narcan) 0.4 mg 1X ONCE IV Last administered on 02/24/20at 09:13; Start 02/24/20 at 09:00; Stop 02/24/20 at 09:06; Status DC Ciprofloxacin/ Dextrose 200 ml @ 200 mls/hr 1X ONCE IV Last administered on 02/24/20at 11:04; Start 02/24/20 at 10:30; Stop 02/24/20 at 11:29; Status DC Meropenem 1 gm/ Sodium Chloride 100 ml @ 200 mls/hr Q8HRS IV ; Start 02/24/20 at 14:00; Status UNV Sodium Chloride 1,000 ml @ 1,000 mls/hr 1X ONCE IV Last administered on 02/24/20at 13:52; Start 02/24/20 at 12:45; Stop 02/24/20 at 13:44; Status DC Meropenem 500 mg/ Sodium Chloride 50 ml @ 100 mls/hr Q6HRS IV Last administered on 02/25/20at 05:55; Start 02/24/20 at 14:00 Duloxetine HCl (Cymbalta) 30 mg DAILY PO Last administered on 02/25/20 07:59; Start 02/24/20 at 15:00 Finasteride (Proscar) 5 mg DAILY PO Last administered on 02/25/20 07:59; Start 02/24/20 at 15:00 Tamsulosin HCl (Flomax) 0.4 mg DAILY PO Last administered on 02/25/20 07:59; Start 02/24/20 at 15:00 Vitamin D (Vitamin D3) 2,000 unit DAILY PO Last administered on 02/25/20 07:59; Start 02/24/20 at 15:00 Non-Formulary Medication (Duloxetine Hcl (Cymbalta)) 1 cap DAILY PO ; Start 02/25/20 at 09:00; Status UNV Magnesium Oxide (Magnesium Oxide) 400 mg BID PO Last administered on 02/25/20 07:59; Start 02/24/20 at 21:00 Mirtazapine (Remeron) 15 mg QHS PO Last administered on 02/24/20 21:19; Start 02/24/20 at 21:00 Sodium Chloride (Normal Saline Flush) 3 ml QSHIFT PRN IV AFTER MEDS AND BLOOD DRAWS; Start 02/24/20 at 13:30 Sodium Chloride 1,000 ml @ 100 mls/hr Q10H IV Last administered on 02/24/20 16:58; Start 02/24/20 at 16:00 Ondansetron HCl (Zofran) 4 mg PRN Q4HRS PRN IV NAUSEA/VOMITING Last admin istered on 02/24/20 19:27; Start 02/24/20 at 13:30 Acetaminophen (Tylenol) 650 mg PRN Q4HRS PRN PO TEMP OVER 100.4F OR MILD PAIN Last administered on 02/24/20 16:15; Start 02/24/20 at 13:30 Al Hydroxide/Mg Hydroxide (Mylanta Plus Xs) 30 ml PRN DAILY PRN PO HEARTBURN / GAS; Start 02/24/20 at 13:30 Clonidine HCl (Catapres) 0.1 mg PRN Q6HRS PRN PO SBP>160 OR DBP>90 Last administered on 02/24/20 22:55; Start 02/24/20 at 13:30 Sodium Monofluorophosphate (Fleet Adult) 133 ml PRN DAILY PRN MA CONSTIPATION; Start 02/24/20 at 13:30 Docusate Sodium (Colace) 100 mg PRN BID PRN PO HARD STOOLS; Start 02/24/20 at 13:30 Albuterol/ Ipratropium (Duoneb) 3 ml Q4H NEB ; Start 02/24/20 at 13:30; Stop 02/24/20 at 13:59; Status DC Guaifenesin (Robitussin) 200 mg PRN Q4HRS PRN PO COUGH; Start 02/24/20 at 13:30 Enoxaparin Sodium (Lovenox 40mg Syringe) 40 mg Q24H SQ Last administered on 02/24/20 21:19; Start 02/24/20 at 21:00 Albuterol Sulfate (Ventolin Neb Soln) 2.5 mg PRN Q4HRS PRN NEB WHEEZING; Start 02/24/20 at 15:00 Aspirin (Jennifer Aspirin) 162.5 mg 1X ONCE PO Last administered on 02/24/20at 16:55; Start 02/24/20 at 16:00; Stop 02/24/20 at 16:01; Status DC Gabapentin (Neurontin) 300 mg TID PO Last administered on 02/25/20at 07:59; Start 02/24/20 at 21:00 Trazodone HCl (Desyrel) 100 mg QHS PO Last administered on 02/24/20 21:19; Start 02/24/20 at 21:00 Olanzapine (ZyPREXA IM) 10 mg 1X ONCE IM Last administered on 02/24/20at 20:06; Start 02/24/20 at 20:00; Stop 02/24/20 at 20:01; Status DC Olanzapine (ZyPREXA ZYDIS) 5 mg PRN BID PRN PO agitation Last administered on 02/25/20at 07:59; Start 02/24/20 at 20:00 Lidocaine (Lidoderm) 1 patch QHS TD Last administered on 02/24/20at 21:26; Start 02/24/20 at 21:30 Miscellaneous (Lidoderm Patch Removal) 1 ea DAILY MC Last administered on 02/25/20at 08:03; Start 02/25/20 at 09:00 Tramadol HCl (Ultram) 50 mg PRN Q6HRS PRN PO MODERATE-SEVERE PAIN Last administered on 02/25/20at 07:59; Start 02/24/20 at 21:15 Active Scripts Active Cipro (Ciprofloxacin Hcl) 500 Mg Tablet 1 Tab PO BID 10 Days Zofran (Ondansetron Hcl) 4 Mg Tablet 4 Mg PO PRN TID PRN 7 Days nausea/vomiting Promethazine Hcl 25 Mg Supp.rect 25 Mg RC Q6H PRN Reported Ciprofloxacin Hcl 250 Mg Tablet Unknown Dose PO BID Cymbalta (Duloxetine Hcl) 30 Mg Capsule.dr 1 Cap PO DAILY Cymbalta (Duloxetine Hcl) 60 Mg Capsule.dr 1 Cap PO DAILY Flomax (Tamsulosin Hcl) 0.4 Mg Cap.er.24h 0.4 Mg PO DAILY Magnesium (Magnesium Oxide) 400 Mg Tablet 1 Tab PO BID 30 Days NEEDED Mirtazapine 15 Mg Tab.rapdis 1 Tab PO QHS 30 Days Olanzapine 5 Mg Tablet 1 Tab PO QHS Finasteride 5 Mg Tablet 1 Tab PO DAILY Trazodone Hcl 100 Mg Tablet 1 Tab PO QHS Gabapentin (Gabapentin) 300 Mg Capsule 300 Mg PO TID Vitamin D3 (Cholecalciferol (Vitamin D3)) 2,000 Unit Tab.chew 1 Tab PO DAILY 30 Days Vitals/I & O Vital Sign - Last 24 Hours 02/24/20 02/24/20 02/24/20 02/24/20 11:00 12:00 13:00 14:00 Pulse 84 74 74 72 Resp 15 15 15 14 Pulse Ox 94 100 100 99 02/24/20 02/24/20 02/24/20 02/24/20 14:45 15:45 17:40 19:23 Temp 99.5 98.1 99.5 98.1 Pulse 89 76 Resp 16 18 B/P (MAP) 154/89 (110) 124/82 (96) Pulse Ox 98 98 O2 Delivery Room Air Room Air Room Air Room Air 02/24/20 02/24/20 02/24/20 02/24/20 20:00 21:27 22:27 22:55 Pulse 128 Resp 20 18 B/P (MAP) 149/117 Pulse Ox 98 97 O2 Delivery Room Air Room Air Room Air 02/24/20 02/25/20 02/25/20 02/25/20 22:56 02:14 07:00 07:59 Temp 98.1 97.6 98.1 97.6 Pulse 128 76 68 Resp 20 18 17 B/P (MAP) 149/117 (128) 115/68 (84) 121/70 (87) Pulse Ox 96 97 96 O2 Delivery Room Air Room Air Room Air Room Air 02/25/20 02/25/20 08:00 09:20 O2 Delivery Room Air Room Air Intake and Output 02/24/20 02/24/20 02/25/20 15:00 23:00 07:00 Intake Total 1000 ml 180 ml 60 ml Output Total 750 ml 250 ml Balance 1000 ml -570 ml -190 ml GUY COLEMAN MD Feb 25, 2020 10:42
[2020-02-25 10:51] VITALS: BP 122/78
--- NOTE | 2020-02-25 11:02 | NUR ---
SS following for discharge planning. SS reviewed pt chart and discussed with RN. Pt is from home, [facility], and is currently on room air. PAT team consulted for SI trigger during admission assessment. Pt currently on IV Meropenem. Urinary cultures pending. SS will continue to follow for discharge planning.
[2020-02-25] MEDS: LORazepam 0.5 MG TABLET PO PRN ×2 (11:30→23:04)
--- NOTE | 2020-02-25 12:21 | PDOC2 ---
NEUROLOGY CONSULT Date of Admission Date of Admission DATE: 02/25/20 TIME: 12:05 Reason for Consult Reason for Consult: degree.MPRESSION: Acute MS changes. Metabolic encephalopathy. UTI. Cognitive impairment. Brain atrophy. Behavior problems. RECOMMENDATIONS/PLAN: Brain MRI w/o contrast. Lab: see orders. Treat UTI per floor team. Treat medical diseases. HISTORY OF THE PRESENT ILLNESS: This is a 64-year-old patient with similar past medical history of intermittent MS changes was found with altered mental status to be brought to the ER of [facility]. The patient was reportedly had similar episodes several times in the past. He was found lying in the sun in the parking lot and EMS usually talked to him and he went inside, but he did not respond this time so he was brought in. His initial assessments were WNL in the ER, but his US test was abnormal and his temperature was 99.1 . His MS changes then improved, but he still has some repeatedly movements in his LE as stating try to fine comfort position. Past Medical History Anxiety, scoliosis,CHRONIC BACK PAIN PAST SURGERY HISTORY: Bladder surgery. Family History High Cholestrol, COPD Social History Smoke: <1 pack per day ALCOHOL: none Drugs: None ALLERGY: Unknown MEDICATIONS: Refer to [facility] REVIEW OF SYSTEMS: Constitutional: No malnutrition, weight loss, cachexia. Head: No traumatic brain or head injury. Skin: No edema, or rash. Ear: No infection. Eyes: No vision loss or color blindness. Nose: No bleeding or purulent discharges. Hearing: No hearing decrease. Neck: No injury. Cardiac: HTN. Pulmonary: Smoking. GI: No GI ulcer, GI bleeding. Urinary/genital: UTI. Endocrinologic: No cousin face, craniofacial dysmorphism, polydactyly. Skeletomuscular: No muscular atrophy, deformity. Neurological: see HP. Psychiatric: Denies drug use/abuse. Otherwise, not [id number] review of systems. PHYSICAL EXAMINATION: General appearance is in no acute distress. HEENT: Normocephalic and nontraumatic. Eyes, nose, ears, and throat are unremarkable. Neck is supple. No lymphadenopathy. No crepitus. Cardiovascular: S1, S2, regular rate and rhythm. Pulmonary: Clear to auscultation bilaterally. Abdomen: Bowel sounds are positive. Extremities: No rash, lesions, or edema. No restriction of range of motion NEUROLOGICAL EXAMINATION: Awake. Not oriented to time, place and person. PERRL. EOMI. CN: no focal findings. Muscle tone: within normal. Muscle strength: 5 DTR: 2 Plantar reflex: Flexor response bilaterally Gait: not examined while in bed. Sensory exam: no abnormal findings. No cerebellar signs elicited. F-T-N test fine. Current Medications Current Medications Current Medications Sodium Chloride 1,000 ml @ 1,000 mls/hr 1X ONCE IV Last administered on 02/24/20at 08:46; Start 02/24/20 at 08:15; Stop 02/24/20 at 09:14; Status DC Naloxone HCl (Narcan) 0.4 mg 1X ONCE IV Last administered on 02/24/20at 09:13; Start 02/24/20 at 09:00; Stop 02/24/20 at 09:06; Status DC Ciprofloxacin/ Dextrose 200 ml @ 200 mls/hr 1X ONCE IV Last administered on 02/24/20at 11:04; Start 02/24/20 at 10:30; Stop 02/24/20 at 11:29; Status DC Meropenem 1 gm/ Sodium Chloride 100 ml @ 200 mls/hr Q8HRS IV ; Start 02/24/20 at 14:00; Status UNV Sodium Chloride 1,000 ml @ 1,000 mls/hr 1X ONCE IV Last administered on 02/24/20at 13:52; Start 02/24/20 at 12:45; Stop 02/24/20 at 13:44; Status DC Meropenem 500 mg/ Sodium Chloride 50 ml @ 100 mls/hr Q6HRS IV Last administered on 02/25/20at 11:15; Start 02/24/20 at 14:00 Duloxetine HCl (Cymbalta) 30 mg DAILY PO Last administered on 02/25/20 07:59; Start 02/24/20 at 15:00 Finasteride (Proscar) 5 mg DAILY PO Last administered on 02/25/20 07:59; Start 02/24/20 at 15:00 Tamsulosin HCl (Flomax) 0.4 mg DAILY PO Last administered on 02/25/20 07:59; Start 02/24/20 at 15:00 Vitamin D (Vitamin D3) 2,000 unit DAILY PO Last administered on 02/25/20at 07:59; Start 02/24/20 at 15:00 Non-Formulary Medication (Duloxetine Hcl (Cymbalta)) 1 cap DAILY PO ; Start 02/25/20 at 09:00; Status UNV Magnesium Oxide (Magnesium Oxide) 400 mg BID PO Last administered on 02/25/20at 07:59; Start 02/24/20 at 21:00 Mirtazapine (Remeron) 15 mg QHS PO Last administered on 02/24/20at 21:19; Start 02/24/20 at 21:00 Sodium Chloride (Normal Saline Flush) 3 ml QSHIFT PRN IV AFTER MEDS AND BLOOD DRAWS; Start 02/24/20 at 13:30 Sodium Chloride 1,000 ml @ 100 mls/hr Q10H IV Last administered on 02/25/20at 11:15; Start 02/24/20 at 16:00 Ondansetron HCl (Zofran) 4 mg PRN Q4HRS PRN IV NAUSEA/VOMITING Last administered on 02/24/20at 19:27; Start 02/24/20 at 13:30 Acetaminophen (Tylenol) 650 mg PRN Q4HRS PRN PO TEMP OVER 100.4F OR MILD PAIN Last administered on 02/24/20at 16:15; Start 02/24/20 at 13:30 Al Hydroxide/Mg Hydroxide (Mylanta Plus Xs) 30 ml PRN DAILY PRN PO HEARTBURN / GAS; Start 02/24/20 at 13:30 Clonidine HCl (Catapres) 0.1 mg PRN Q6HRS PRN PO SBP>160 OR DBP>90 Last administered on 02/24/20at 22:55; Start 02/24/20 at 13:30 Sodium Monofluorophosphate (Fleet Adult) 133 ml PRN DAILY PRN [place] CONSTIPATION; Start 02/24/20 at 13:30 Docusate Sodium (Colace) 100 mg PRN BID PRN PO HARD STOOLS; Start 02/24/20 at 13:30 Albuterol/ Ipratropium (Duoneb) 3 ml Q4H NEB ; Start 02/24/20 at 13:30; Stop 02/24/20 at 13:59; Status DC Guaifenesin (Robitussin) 200 mg PRN Q4HRS PRN PO COUGH; Start 02/24/20 at 13:30 Enoxaparin Sodium (Lovenox 40mg Syringe) 40 mg Q24H SQ Last administered on 02/24/20 21:19; Start 02/24/20 at 21:00 Albuterol Sulfate (Ventolin Neb Soln) 2.5 mg PRN Q4HRS PRN NEB WHEEZING; Start 02/24/20 at 15:00 Aspirin (Jennifer Aspirin) 162.5 mg 1X ONCE PO Last administered on 02/24/20 16:55; Start 02/24/20 at 16:00; Stop 02/24/20 at 16:01; Status DC Gabapentin (Neurontin) 300 mg TID PO Last administered on 02/25/20 07:59; Start 02/24/20 at 21:00 Trazodone HCl (Desyrel) 100 mg QHS PO Last administered on 02/24/20 21:19; Start 02/24/20 at 21:00 Olanzapine (ZyPREXA IM) 10 mg 1X ONCE IM Last administered on 02/24/20 20:06; Start 02/24/20 at 20:00; Stop 02/24/20 at 20:01; Status DC Olanzapine (ZyPREXA ZYDIS) 5 mg PRN BID PRN PO agitation Last administered on 02/25/20 07:59; Start 02/24/20 at 20:00 Lidocaine (Lidoderm) 1 patch QHS TD Last administered on 02/24/20 21:26; Start 02/24/20 at 21:30 Miscellaneous (Lidoderm Patch Removal) 1 ea DAILY MC Last administered on 02/25/20 08:03; Start 02/25/20 at 09:00 Tramadol HCl (Ultram) 50 mg PRN Q6HRS PRN PO MODERATE-SEVERE PAIN Last administered on 02/25/20 07:59; Start 02/24/20 at 21:15 Lorazepam (Ativan) 0.5 mg PRN Q12HR PRN PO ANXIETY / AGITATION Last administered on 02/25/20 11:30; Start 02/25/20 at 11:30 Active Scripts Active Cipro (Ciprofloxacin Hcl) 500 Mg Tablet 1 Tab PO BID 10 Days Zofran (Ondansetron Hcl) 4 Mg Tablet 4 Mg PO PRN TID PRN 7 Days nausea/vomiting Promethazine Hcl 25 Mg Supp.rect 25 Mg RC Q6H PRN Reported Ciprofloxacin Hcl 250 Mg Tablet Unknown Dose PO BID Cymbalta (Duloxetine Hcl) 30 Mg Capsule.dr 1 Cap PO DAILY Cymbalta (Duloxetine Hcl) 60 Mg Capsule.dr 1 Cap PO DAILY Flomax (Tamsulosin Hcl) 0.4 Mg Cap.er.24h 0.4 Mg PO DAILY Magnesium (Magnesium Oxide) 400 Mg Tablet 1 Tab PO BID 30 Days NEEDED Mirtazapine 15 Mg Tab.rapdis 1 Tab PO QHS 30 Days Olanzapine 5 Mg Tablet 1 Tab PO QHS Finasteride 5 Mg Tablet 1 Tab PO DAILY Trazodone Hcl 100 Mg Tablet 1 Tab PO QHS Gabapentin (Gabapentin) 300 Mg Capsule 300 Mg PO TID Vitamin D3 (Cholecalciferol (Vitamin D3)) 2,000 Unit Tab.chew 1 Tab PO DAILY 30 Days Allergies Allergies: Allergies Coded Allergies Type Severity Reaction Last Updated Verified Penicillins Allergy Severe anaphylactic 02/24/20 Yes Sulfa (Sulfonamide Antibiotics) Allergy Severe anaphylactic 11/13/19 Yes Influenza Virus Vaccines Allergy Intermediate 01/29/20 Yes ROS Review of System The patient denies any associated fevers, chills, headache, ear pain, rhinorrhea, sore throat, stiff neck, productive cough, chest pain, shortness of breath, back or flank pain, abdominal pain, nausea, vomiting, diarrhea, constipation, dysuria, rash, numbness, weakness, tingling, incontinence, difficulty ambulating, or diaphoresis. Physical Exam Physical Exam General: Well developed, well nourished, no acute distress, well appearing HEENT: Pupils equally round and reactive to light, EOMI, no discharge, normal conjunctiva Neck: Supple, no nuchal rigidity, no JVD, trachea midline, no tenderness Cardiac: RRR, no murmurs, no gallops, no rubs Chest/Lungs: CTAB, no wheeze, no rhonchi, no crackles Abdomen: soft, non-distended, no guarding, no peritoneal signs, non-tender Back: No tenderness Extremities: no edema, pulses intact, non-tender,capillary refill <3 sec bi lateral upper and lower extremities, Neuro: Alert and oriented x 4, no focal deficits, normal speech Vitals Vitals: Vital Signs Date Time Temp Pulse Resp B/P (MAP) Pulse Ox O2 Delivery O2 Flow Rate FiO2 02/25/20 10:51 97.8 71 16 122/78 (93) 97 Room Air 97.8 Labs Labs Laboratory Tests Test 02/24/20 07:56 02/24/20 08:40 02/24/20 09:05 02/24/20 13:20 Glucose (Fingerstick) 104 mg/dL (70-99) Urine Collection Type Unknown Urine Color Yellow Urine Clarity Clear Urine pH 7.0 (<5.0-8.0) Urine Specific [place] 1.025 (1.000-1.030) Urine Protein Negative mg/dL (NEG-TRACE) Urine Glucose (UA) Negative mg/dL (NEG) Urine Ketones (Stick) Negative mg/dL (NEG) Urine Blood Negative (NEG) Urine Nitrite Positive (NEG) Urine Bilirubin Negative (NEG) Urine Urobilinogen Dipstick 0.2 mg/dL (0.2 mg/dL) Urine Leukocyte Esterase Small (NEG) Urine RBC Occ /HPF (0-2) Urine WBC >40 /HPF (0-4) Urine Squamous Epithelial Cells Occ /LPF Urine Bacteria Many /HPF (0-FEW) Urine Mucus Mod /LPF Vitamin B12 Level 705 pg/mL (247-911) Thyroid Stimulating Hormone (TSH) 1.181 uIU/mL (0.358-3.74) Urine Opiates Screen Neg (NEG) Urine Methadone Screen Neg (NEG) Urine Barbiturates Neg (NEG) Urine Phencyclidine Screen Neg (NEG) Urine Amphetamine/Methamphetamine Neg (NEG) Urine Benzodiazepines Screen Neg (NEG) Urine Cocaine Screen Neg (NEG) Urine Cannabinoids Screen Neg (NEG) Urine Ethyl Alcohol Neg (NEG) White Blood Count 9.3 x10^3/uL (4.0-11.0) Red Blood Count 5.22 x10^6/uL (4.30-5.70) Hemoglobin 14.4 g/dL (13.0-17.5) Hematocrit 44.2 % (39.0-53.0) Mean Corpuscular Volume 85 fL (79-100) Mean Corpuscular Hemoglobin 28 pg (25-35) Mean Corpuscular Hemoglobin Concent 33 g/dL (31-37) Red Cell Distribution Width 16.3 % (11.5-14.5) Platelet Count 278 x10^3/uL (140-400) Neutrophils (%) (Auto) 70 % (31-73) Lymphocytes (%) (Auto) 23 % (24-48) Monocytes (%) (Auto) 7 % (0-9) Eosinophils (%) (Auto) 0 % (0-3) Basophils (%) (Auto) 0 % (0-3) Neutrophils # (Auto) 6.4 x10^3/uL (1.8-7.7) Lymphocytes # (Auto) 2.1 x10^3/uL (1.0-4.8) Monocytes # (Auto) 0.6 x10^3/uL (0.0-1.1) Eosinophils # (Auto) 0.0 x10^3/uL (0.0-0.7) Basophils # (Auto) 0.0 x10^3/uL (0.0-0.2) Sodium Level 142 mmol/L (136-145) Potassium Level 3.7 mmol/L (3.5-5.1) Chloride Level 104 mmol/L (98-107) Carbon Dioxide Level 28 mmol/L (21-32) Anion Gap 10 (6-14) Blood Urea Nitrogen 21 mg/dL (8-26) Creatinine 1.1 mg/dL (0.7-1.3) Estimated GFR (Cockcroft-Gault) 67.8 BUN/Creatinine Ratio 19 (6-20) Glucose Level 101 mg/dL (70-99) Lactic Acid Level 3.3 mmol/L (0.4-2.0) 1.8 mmol/L (0.4-2.0) Calcium Level 9.1 mg/dL (8.5-10.1) Total Bilirubin 1.0 mg/dL (0.2-1.0) Aspartate Amino Transf (AST/SGOT) 17 U/L (15-37) Alanine Aminotransferase (ALT/SGPT) 26 U/L (16-63) Alkaline Phosphatase 102 U/L (46-116) Ammonia < 10 mcmol/L (11-34) Total Protein 6.8 g/dL (6.4-8.2) Albumin 3.8 g/dL (3.4-5.0) Albumin/Globulin Ratio 1.3 (1.0-1.7) Procalcitonin < 0.10 ng/mL (0.00-0.10) Test 02/24/20 14:10 02/24/20 16:20 02/25/20 08:00 Erythrocyte Sedimentation Rate 4 (0-15) Urine Opiates Screen Neg (NEG) Urine Methadone Screen Neg (NEG) Urine Barbiturates Neg (NEG) Urine Phencyclidine Screen Neg (NEG) Urine Amphetamine/Methamphetamine Neg (NEG) Urine Benzodiazepines Screen Neg (NEG) Urine Cocaine Screen Neg (NEG) Urine Cannabinoids Screen Neg (NEG) Urine Ethyl Alcohol Neg (NEG) Triglycerides Level 62 mg/dL (0-150) Cholesterol Level 112 mg/dL (0-200) LDL Cholesterol, Calculated 61 mg/dL (0-100) VLDL Cholesterol, Calculated 12 mg/dL (0-40) Non-HDL Cholesterol Calculated 73 mg/dL (0-129) HDL Cholesterol 39 mg/dL (40-60) Cholesterol/HDL Ratio 2.9 Laboratory Tests Test 02/24/20 13:20 02/24/20 14:10 02/24/20 16:20 02/25/20 08:00 Lactic Acid Level 1.8 mmol/L (0.4-2.0) Erythrocyte Sedimentation Rate 4 (0-15) Urine Opiates Screen Neg (NEG) Urine Methadone Screen Neg (NEG) Urine Barbiturates Neg (NEG) Urine Phencyclidine Screen Neg (NEG) Urine Amphetamine/Methamphetamine Neg (NEG) Urine Benzodiazepines Screen Neg (NEG) Urine Cocaine Screen Neg (NEG) Urine Cannabinoids Screen Neg (NEG) Urine Ethyl Alcohol Neg (NEG) Triglycerides Level 62 mg/dL (0-150) Cholesterol Level 112 mg/dL (0-200) LDL Cholesterol, Calculated 61 mg/dL (0-100) VLDL Cholesterol, Calculated 12 mg/dL (0-40) Non-HDL Cholesterol Calculated 73 mg/dL (0-129) HDL Cholesterol 39 mg/dL (40-60) Cholesterol/HDL Ratio 2.9 HAN FELTON MD Feb 25, 2020 12:21
--- NOTE | 2020-02-25 14:23 | RAD ---
BRAIN W/O CONTRAST History: Altered mental status. Weakness. Technique: Multiplanar, multi sequential MR imaging was performed of the brain without contrast. Comparison: Head CT February 24, 2020 Findings: No acute infarct. No intracranial hemorrhage. No mass effect. Dilated posterior lateral ventricles. Normal caliber third ventricle. No evidence of obstructive hydrocephalus. Small chronic left cerebellar lacunar infarct. Right inferior basal ganglia most likely prominent perivascular space. Mild foci of T2/FLAIR hyperintensities within the periventricular white matter, most often due to chronic microvascular ischemia. Imaged orbits are unremarkable. Imaged paranasal sinuses and mastoid air cells are clear. Impression: 1. No acute intracranial abnormality. 2. Dilated posterior lateral ventricles, unchanged. 3. Chronic tiny left cerebellar infarct. Electronically signed by: Alen Duffy DO (02/25/2020 2:20 PM) [id number]
--- NOTE | 2020-02-25 14:30 | NUR ---
SS following up with discharge planning. Christopher from PAT team met with pt and assessed. Pt reported that he was at [facility] two months ago and is currently compliant with his prescribed medications. Pt denied currently SI stating that when he feels bad and in pain he feels like he wants to but has no current plan or ideations. Pt cleared by PAT team. SS will continue to follow for discharge planning.
[2020-02-25 14:53] VITALS: BP 121/72
[2020-02-25 19:01] VITALS: BP 130/72
[2020-02-25] MEDS: MIRTAZAPINE 15 MG TABLET PO SCH (20:27)
[2020-02-25] MEDS: traZODone 100 MG TABLET. PO SCH (20:27)
[2020-02-25] MEDS: ENOXAPARIN 40 MG/0.4 ML SYRINGE. SQ SCH (20:28)
[2020-02-25] MEDS: LIDOCAINE (700MG/PATCH) PATCH. TD SCH (20:31)
[2020-02-25 23:15] VITALS: BP 145/77
[2020-02-26 03:02] VITALS: BP 119/70
[2020-02-26] MEDS: MEROPENEM 500 MG in IV NORMAL SALINE 50ML 50 ML IV SCH ×4 (05:29→23:51)
[2020-02-26 07:00] VITALS: BP 133/92
[2020-02-26] MEDS: DULoxetine HCL 30 MG CAPSULE.DR PO SCH (09:00)
[2020-02-26] MEDS: PATCH REMOVAL. MC SCH (09:00)
--- NOTE | 2020-02-26 09:50 | PDOC ---
PROGRESS NOTES Chief Complaint Chief Complaint A/P: UTI (urinary tract infection) sepsis Stable lateral ventriculomegaly Chronic back pain - s/p recent LESI Bilateral LE pain Metabolic encephalopathy - Acute Encephalopathy - multifactorial due to uti and narcotics? Cognitive impairment. Brain atrophy. Behavior problems. History of cystitis ADMITTED blood cult iv antibiotics dvt prophylaxis neurology consult floow lactic acid hold narcotics, and sedating meds ID CONSULT DRUG SCREEN , URINE ESR PROCALCITONIN CXR History of Present Illness History of Present Illness Mr Butler is a 64-year-old patient with similar past medical history of intermittent MS changes was found with altered mental status to be brought to the ER of [facility]. The patient was reportedly had similar episodes several times in the past. He was found lying in the sun in the parking lot and EMS usually talked to him and he went inside, but he did not respond this time so he was brought in. His initial assessments were WNL in the ER, but his US test was abnormal and his temperature was 99.1 . His MS changes then improved, but he still has some repeatedly movements in his LE as stating t ry to fine comfort position. 02/24: more alert, thinks he is in [place], neurology consulted. Doing leg exercises in bed. Thinks it is September 2024. Knows that he is at [facility]. No SOB or CP. Having some scant urinary incontinence, wearing an adult diaper. Urine with e. coli > 100K CFU, sensitivities pending, still on Merrem. Vitals Vitals Vital Signs Date Time Temp Pulse Resp B/P (MAP) Pulse Ox O2 Delivery O2 Flow Rate FiO2 02/26/20 03:02 97.7 73 18 119/70 (86) 94 Room Air 97.7 Physical Exam Physical Exam Cardiovascular:Heart rate regular rhythm Lungs & Thorax: Bilateral breath sounds clear to auscultation [] Abdomen: Soft, nontender, nondistended, no focal abdominal tenderness Extremities: No tenderness, ROM intac Neurologic: awake, HEENT: Mucous membr. moist/pink Lungs: Clear to auscultation, Normal air movement Heart: RRR Abdomen: Soft, Rectal Exam: not examined PELVIC: Examination not indicated Extremities: No cyanosis, No edema Neuro: Cranial nerves 3-12 NL oriented to month not day General: Alert, Oriented X3, Cooperative, No acute distress Heart: Regular rate, Normal S1 Lungs: Clear Abdomen: Normal bowel sounds, Soft, No tenderness, Other (mild tenderness ) Extremities: No clubbing, No cyanosis, No edema Assessment and Plan Assessmemt and Plan Problems Medical Problems: (1) Altered mental status Status: Acute (2) UTI (urinary tract infection) Status: Acute Comment Review of Relevant I have reviewed the following items willem (where applicable) has been applied. Labs Laboratory Tests Test 02/24/20 13:20 02/24/20 14:10 02/24/20 16:20 02/25/20 08:00 Lactic Acid Level 1.8 mmol/L (0.4-2.0) Erythrocyte Sedimentation Rate 4 (0-15) Urine Opiates Screen Neg (NEG) Urine Methadone Screen Neg (NEG) Urine Barbiturates Neg (NEG) Urine Phencyclidine Screen Neg (NEG) Urine Amphetamine/Methamphetamine Neg (NEG) Urine Benzodiazepines Screen Neg (NEG) Urine Cocaine Screen Neg (NEG) Urine Cannabinoids Screen Neg (NEG) Urine Ethyl Alcohol Neg (NEG) Triglycerides Level 62 mg/dL (0-150) Cholesterol Level 112 mg/dL (0-200) LDL Cholesterol, Calculated 61 mg/dL (0-100) VLDL Cholesterol, Calculated 12 mg/dL (0-40) Non-HDL Cholesterol Calculated 73 mg/dL (0-129) HDL Cholesterol 39 mg/dL (40-60) Cholesterol/HDL Ratio 2.9 Microbiology 02/24/20 Blood Culture - Preliminary, Resulted NO GROWTH AFTER 1 DAY 02/24/20 Urine Culture - Preliminary, Resulted 02/24/20 Urine Culture Result 1 (BETO) - Preliminary, Resulted Medications Current Medications Sodium Chloride 1,000 ml @ 1,000 mls/hr 1X ONCE IV Last administered on 02/24/20at 08:46; Start 02/24/20 at 08:15; Stop 02/24/20 at 09:14; Status DC Naloxone HCl (Narcan) 0.4 mg 1X ONCE IV Last administered on 02/24/20at 09:13; Start 02/24/20 at 09:00; Stop 02/24/20 at 09:06; Status DC Ciprofloxacin/ Dextrose 200 ml @ 200 mls/hr 1X ONCE IV Last administered on 02/24/20at 11:04; Start 02/24/20 at 10:30; Stop 02/24/20 at 11:29; Status DC Meropenem 1 gm/ Sodium Chloride 100 ml @ 200 mls/hr Q8HRS IV ; Start 02/24/20 at 14:00; Status UNV Sodium Chloride 1,000 ml @ 1,000 mls/hr 1X ONCE IV Last administered on 02/24/20 13:52; Start 02/24/20 at 12:45; Stop 02/24/20 at 13:44; Status DC Meropenem 500 mg/ Sodium Chloride 50 ml @ 100 mls/hr Q6HRS IV Last administered on 02/26/20at 05:29; Start 02/24/20 at 14:00 Duloxetine HCl (Cymbalta) 30 mg DAILY PO Last administered on 02/25/20 07:59; Start 02/24/20 at 15:00 Finasteride (Proscar) 5 mg DAILY PO Last administered on 02/25/20 07:59; Start 02/24/20 at 15:00 Tamsulosin HCl (Flomax) 0.4 mg DAILY PO Last administered on 02/25/20 07:59; Start 02/24/20 at 15:00 Vitamin D (Vitamin D3) 2,000 unit DAILY PO Last administered on 02/25/20 07:59; Start 02/24/20 at 15:00 Non-Formulary Medication (Duloxetine Hcl (Cymbalta)) 1 cap DAILY PO ; Start 02/25/20 at 09:00; Status UNV Magnesium Oxide (Magnesium Oxide) 400 mg BID PO Last administered on 02/25/20 20:27; Start 02/24/20 at 21:00 Mirtazapine (Remeron) 15 mg QHS PO Last administered on 02/25/20 20:27; Start 02/24/20 at 21:00 Sodium Chloride (Normal Saline Flush) 3 ml QSHIFT PRN IV AFTER MEDS AND BLOOD DRAWS; Start 02/24/20 at 13:30 Sodium Chloride 1,000 ml @ 100 mls/hr Q10H IV Last administered on 02/25/20 20:27; Start 02/24/20 at 16:00 Ondansetron HCl (Zofran) 4 mg PRN Q4HRS PRN IV NAUSEA/VOMITING Last administered on 02/24/20 19:27; Start 02/24/20 at 13:30 Acetaminophen (Tylenol) 650 mg PRN Q4HRS PRN PO TEMP OVER 100.4F OR MILD PAIN Last administered on 02/24/20at 16:15; Start 02/24/20 at 13:30 Al Hydroxide/Mg Hydroxide (Mylanta Plus Xs) 30 ml PRN DAILY PRN PO HEARTBURN / GAS; Start 02/24/20 at 13:30 Clonidine HCl (Catapres) 0.1 mg PRN Q6HRS PRN PO SBP>160 OR DBP>90 Last administered on 02/24/20at 22:55; Start 02/24/20 at 13:30 Sodium Monofluorophosphate (Fleet Adult) 133 ml PRN DAILY PRN [place] CONSTIPATION; Start 02/24/20 at 13:30 Docusate Sodium (Colace) 100 mg PRN BID PRN PO HARD STOOLS; Start 02/24/20 at 13:30 Albuterol/ Ipratropium (Duoneb) 3 ml Q4H NEB ; Start 02/24/20 at 13:30; Stop 02/24/20 at 13:59; Status DC Guaifenesin (Robitussin) 200 mg PRN Q4HRS PRN PO COUGH; Start 02/24/20 at 13:30 Enoxaparin Sodium (Lovenox 40mg Syringe) 40 mg Q24H SQ Last administered on 02/25/20at 20:28; Start 02/24/20 at 21:00 Albuterol Sulfate (Ventolin Neb Soln) 2.5 mg PRN Q4HRS PRN NEB WHEEZING; Start 02/24/20 at 15:00 Aspirin (Jennifer Aspirin) 162.5 mg 1X ONCE PO Last administered on 02/24/20at 16:55; Start 02/24/20 at 16:00; Stop 02/24/20 at 16:01; Status DC Gabapentin (Neurontin) 300 mg TID PO Last administered on 02/25/20 20:27; Start 02/24/20 at 21:00 Trazodone HCl (Desyrel) 100 mg QHS PO Last administered on 02/25/20 20:27; Start 02/24/20 at 21:00 Olanzapine (ZyPREXA IM) 10 mg 1X ONCE IM Last administered on 02/24/20at 20:06; Start 02/24/20 at 20:00; Stop 02/24/20 at 20:01; Status DC Olanzapine (ZyPREXA ZYDIS) 5 mg PRN BID PRN PO agitation Last administered on 02/25/20at 07:59; Start 02/24/20 at 20:00 Lidocaine (Lidoderm) 1 patch QHS TD Last administered on 02/24/20 21:26; Start 02/24/20 at 21:30 Miscellaneous (Lidoderm Patch Removal) 1 ea DAILY MC Last administered on 02/25/20at 08:03; Start 02/25/20 at 09:00 Tramadol HCl (Ultram) 50 mg PRN Q6HRS PRN PO MODERATE-SEVERE PAIN Last administered on 02/25/20 23:04; Start 02/24/20 at 21:15 Lorazepam (Ativan) 0.5 mg PRN Q12HR PRN PO ANXIETY / AGITATION Last administered on 02/25/20 23:04; Start 02/25/20 at 11:30 Active Scripts Active Cipro (Ciprofloxacin Hcl) 500 Mg Tablet 1 Tab PO BID 10 Days Zofran (Ondansetron Hcl) 4 Mg Tablet 4 Mg PO PRN TID PRN 7 Days nausea/vomiting Promethazine Hcl 25 Mg Supp.rect 25 Mg RC Q6H PRN Reported Ciprofloxacin Hcl 250 Mg Tablet Unknown Dose PO BID Cymbalta (Duloxetine Hcl) 30 Mg Capsule.dr 1 Cap PO DAILY Cymbalta (Duloxetine Hcl) 60 Mg Capsule.dr 1 Cap PO DAILY Flomax (Tamsulosin Hcl) 0.4 Mg Cap.er.24h 0.4 Mg PO DAILY Magnesium (Magnesium Oxide) 400 Mg Tablet 1 Tab PO BID 30 Days NEEDED Mirtazapine 15 Mg Tab.rapdis 1 Tab PO QHS 30 Days Olanzapine 5 Mg Tablet 1 Tab PO QHS Finasteride 5 Mg Tablet 1 Tab PO DAILY Trazodone Hcl 100 Mg Tablet 1 Tab PO QHS Gabapentin (Gabapentin) 300 Mg Capsule 300 Mg PO TID Vitamin D3 (Cholecalciferol (Vitamin D3)) 2,000 Unit Tab.chew 1 Tab PO DAILY 30 Days Vitals/I & O Vital Sign - Last 24 Hours 02/25/20 02/25/20 02/25/20 02/25/20 10:51 14:53 17:11 18:19 Temp 97.8 98.3 97.8 98.3 Pulse 71 78 Resp 16 17 B/P (MAP) 122/78 (93) 121/72 (88) Pulse Ox 97 96 O2 Delivery Room Air Room Air Room Air Room Air 02/25/20 02/25/20 02/25/20 02/25/20 19:01 20:09 23:04 23:15 Temp 98.3 98.1 98.3 98.1 Pulse 86 69 Resp 18 18 B/P (MAP) 130/72 (91) 145/77 (99) Pulse Ox 97 96 O2 Delivery Room Air Room Air Room Air Room Air 02/26/20 02/26/20 00:07 03:02 Temp 97.7 97.7 Pulse 73 Resp 18 B/P (MAP) 119/70 (86) Pulse Ox 94 O2 Delivery Room Air Room Air Intake and Output 02/25/20 02/25/20 02/26/20 15:00 23:00 07:00 Intake Total 520 ml 410 ml 50 ml Output Total 250 ml 750 ml 1025 ml Balance 270 ml -340 ml -975 ml MIGUEL TENA MD Feb 26, 2020 09:50
[2020-02-26 11:00] VITALS: BP 135/69
[2020-02-26] MEDS: MAGNESIUM OXIDE 400 MG TABLET PO SCH ×2 (11:28→22:00)
[2020-02-26] MEDS: TAMSULOSIN 0.4 MG CAP.ER.24H. PO SCH (11:28)
[2020-02-26] MEDS: FINASTERIDE 5 MG TABLET. PO SCH (11:29)
[2020-02-26] MEDS: CHOLECALCIFEROL (VITAMIN D3) 1,000 UNIT TABLET PO SCH (11:29)
[2020-02-26] MEDS: GABAPENTIN 300 MG CAPSULE. PO SCH ×3 (11:29→22:01)
[2020-02-26] MEDS: LORazepam 0.5 MG TABLET PO PRN (11:31)
[2020-02-26] MEDS: IV NORMAL SALINE 1000ML BAG 1,000 ML IV SCH ×2 (11:33→17:47)
--- NOTE | 2020-02-26 13:06 | PDOC ---
PROGRESS NOTES Assessment Problems Medical Problems: (1) Altered mental status Status: Acute (2) UTI (urinary tract infection) Status: Acute Metabolic encephalopathy. UTI. Cognitive impairment. Brain atrophy. Behavior problems. Brain MRI and neurology-ordered labs, negative Plan Treat medical diseases. Subjective complaints of anxiety and whole-body pain Objective Vital Signs Date Time Temp Pulse Resp B/P (MAP) Pulse Ox O2 Delivery O2 Flow Rate FiO2 02/26/20 07:00 98.0 77 12 133/92 (106) 95 Room Air 98.0 Intake and Output 02/26/20 07:00 Intake Total 980 ml Output Total 2025 ml Balance -1045 ml Intake Oral 980 ml Output Urine Total 2025 ml PHYSICAL EXAM Alert. Oriented to "hospital" and person. PERRL. EOMI. CN: no focal findings. Muscle tone: normal. Muscle strength: moves all extremities DTR: 1+ Plantar reflex: flexor Gait: not examined in bed. Sensory exam: no abnormal findings. No cerebellar signs elicited. Review of Relevant I have reviewed the following items willem (where applicable) has been applied. Labs Laboratory Tests Test 02/24/20 13:20 02/24/20 14:10 02/24/20 16:20 02/25/20 08:00 Lactic Acid Level 1.8 mmol/L (0.4-2.0) Erythrocyte Sedimentation Rate 4 (0-15) Urine Opiates Screen Neg (NEG) Urine Methadone Screen Neg (NEG) Urine Barbiturates Neg (NEG) Urine Phencyclidine Screen Neg (NEG) Urine Amphetamine/Methamphetamine Neg (NEG) Urine Benzodiazepines Screen Neg (NEG) Urine Cocaine Screen Neg (NEG) Urine Cannabinoids Screen Neg (NEG) Urine Ethyl Alcohol Neg (NEG) Triglycerides Level 62 mg/dL (0-150) Cholesterol Level 112 mg/dL (0-200) LDL Cholesterol, Calculated 61 mg/dL (0-100) VLDL Cholesterol, Calculated 12 mg/dL (0-40) Non-HDL Cholesterol Calculated 73 mg/dL (0-129) HDL Cholesterol 39 mg/dL (40-60) Cholesterol/HDL Ratio 2.9 Microbiology 02/24/20 Blood Culture - Preliminary, Resulted NO GROWTH AFTER 1 DAY 02/24/20 Urine Culture - Preliminary, Resulted 02/24/20 Urine Culture Result 1 (BETO) - Preliminary, Resulted Medications Current Medications Sodium Chloride 1,000 ml @ 1,000 mls/hr 1X ONCE IV Last administered on 02/24/20at 08:46; Start 02/24/20 at 08:15; Stop 02/24/20 at 09:14; Status DC Naloxone HCl (Narcan) 0.4 mg 1X ONCE IV Last administered on 02/24/20at 09:13; Start 02/24/20 at 09:00; Stop 02/24/20 at 09:06; Status DC Ciprofloxacin/ Dextrose 200 ml @ 200 mls/hr 1X ONCE IV Last administered on 02/24/20at 11:04; Start 02/24/20 at 10:30; Stop 02/24/20 at 11:29; Status DC Meropenem 1 gm/ Sodium Chloride 100 ml @ 200 mls/hr Q8HRS IV ; Start 02/24/20 at 14:00; Status UNV Sodium Chloride 1,000 ml @ 1,000 mls/hr 1X ONCE IV Last administered on 02/24/20at 13:52; Start 02/24/20 at 12:45; Stop 02/24/20 at 13:44; Status DC Meropenem 500 mg/ Sodium Chloride 50 ml @ 100 mls/hr Q6HRS IV Last administered on 02/26/20at 11:35; Start 02/24/20 at 14:00 Duloxetine HCl (Cymbalta) 30 mg DAILY PO Last administered on 02/26/20at 09:00; Start 02/24/20 at 15:00 Finasteride (Proscar) 5 mg DAILY PO Last administered on 02/26/20 11:29; Start 02/24/20 at 15:00 Tamsulosin HCl (Flomax) 0.4 mg DAILY PO Last administered on 02/26/20 11:28; Start 02/24/20 at 15:00 Vitamin D (Vitamin D3) 2,000 unit DAILY PO Last administered on 02/26/20 11:29; Start 02/24/20 at 15:00 Non-Formulary Medication (Duloxetine Hcl (Cymbalta)) 1 cap DAILY PO ; Start 02/25/20 at 09:00; Status UNV Magnesium Oxide (Magnesium Oxide) 400 mg BID PO Last administered on 02/26/20at 11:28; Start 02/24/20 at 21:00 Mirtazapine (Remeron) 15 mg QHS PO Last administered on 02/25/20at 20:27; Start 02/24/20 at 21:00 Sodium Chloride (Normal Saline Flush) 3 ml QSHIFT PRN IV AFTER MEDS AND BLOOD DRAWS; Start 02/24/20 at 13:30 Sodium Chloride 1,000 ml @ 100 mls/hr Q10H IV Last administered on 02/26/20at 11:33; Start 02/24/20 at 16:00 Ondansetron HCl (Zofran) 4 mg PRN Q4HRS PRN IV NAUSEA/VOMITING Last administered on 02/24/20at 19:27; Start 02/24/20 at 13:30 Acetaminophen (Tylenol) 650 mg PRN Q4HRS PRN PO TEMP OVER 100.4F OR MILD PAIN Last administered on 02/24/20at 16:15; Start 02/24/20 at 13:30 Al Hydroxide/Mg Hydroxide (Mylanta Plus Xs) 30 ml PRN DAILY PRN PO HEARTBURN / GAS; Start 02/24/20 at 13:30 Clonidine HCl (Catapres) 0.1 mg PRN Q6HRS PRN PO SBP>160 OR DBP>90 Last administered on 02/24/20at 22:55; Start 02/24/20 at 13:30 Sodium Monofluorophosphate (Fleet Adult) 133 ml PRN DAILY PRN [place] CONSTIPATION; Start 02/24/20 at 13:30 Docusate Sodium (Colace) 100 mg PRN BID PRN PO HARD STOOLS; Start 02/24/20 at 13:30 Albuterol/ Ipratropium (Duoneb) 3 ml Q4H NEB ; Start 02/24/20 at 13:30; Stop 02/24/20 at 13:59; Status DC Guaifenesin (Robitussin) 200 mg PRN Q4HRS PRN PO COUGH; Start 02/24/20 at 13:30 Enoxaparin Sodium (Lovenox 40mg Syringe) 40 mg Q24H SQ Last administered on 02/25/20at 20:28; Start 02/24/20 at 21:00 Albuterol Sulfate (Ventolin Neb Soln) 2.5 mg PRN Q4HRS PRN NEB WHEEZING; Start 02/24/20 at 15:00 Aspirin (Jennifer Aspirin) 162.5 mg 1X ONCE PO Last administered on 02/24/20 16:55; Start 02/24/20 at 16:00; Stop 02/24/20 at 16:01; Status DC Gabapentin (Neurontin) 300 mg TID PO Last administered on 02/26/20 11:29; Start 02/24/20 at 21:00 Trazodone HCl (Desyrel) 100 mg QHS PO Last administered on 02/25/20 20:27; Start 02/24/20 at 21:00 Olanzapine (ZyPREXA IM) 10 mg 1X ONCE IM Last administered on 02/24/20 20:06; Start 02/24/20 at 20:00; Stop 02/24/20 at 20:01; Status DC Olanzapine (ZyPREXA ZYDIS) 5 mg PRN BID PRN PO agitation Last administered on 02/25/20 07:59; Start 02/24/20 at 20:00 Lidocaine (Lidoderm) 1 patch QHS TD Last administered on 02/24/20 21:26; Start 02/24/20 at 21:30 Miscellaneous (Lidoderm Patch Removal) 1 ea DAILY MC Last administered on 02/26/20 09:00; Start 02/25/20 at 09:00 Tramadol HCl (Ultram) 50 mg PRN Q6HRS PRN PO MODERATE-SEVERE PAIN Last administered on 02/25/20 23:04; Start 02/24/20 at 21:15 Lorazepam (Ativan) 0.5 mg PRN Q12HR PRN PO ANXIETY / AGITATION Last administered on 02/26/20 11:31; Start 02/25/20 at 11:30 Active Scripts Active Cipro (Ciprofloxacin Hcl) 500 Mg Tablet 1 Tab PO BID 10 Days Zofran (Ondansetron Hcl) 4 Mg Tablet 4 Mg PO PRN TID PRN 7 Days nausea/vomiting Promethazine Hcl 25 Mg Supp.rect 25 Mg RC Q6H PRN Reported Ciprofloxacin Hcl 250 Mg Tablet Unknown Dose PO BID Cymbalta (Duloxetine Hcl) 30 Mg Capsule.dr 1 Cap PO DAILY Cymbalta (Duloxetine Hcl) 60 Mg Capsule.dr 1 Cap PO DAILY Flomax (Tamsulosin Hcl) 0.4 Mg Cap.er.24h 0.4 Mg PO DAILY Magnesium (Magnesium Oxide) 400 Mg Tablet 1 Tab PO BID 30 Days NEEDED Mirtazapine 15 Mg Tab.rapdis 1 Tab PO QHS 30 Days Olanzapine 5 Mg Tablet 1 Tab PO QHS Finasteride 5 Mg Tablet 1 Tab PO DAILY Trazodone Hcl 100 Mg Tablet 1 Tab PO QHS Gabapentin (Gabapentin) 300 Mg Capsule 300 Mg PO TID Vitamin D3 (Cholecalciferol (Vitamin D3)) 2,000 Unit Tab.chew 1 Tab PO DAILY 30 Days Vitals/I & O Vital Sign - Last 24 Hours 02/25/20 02/25/20 02/25/20 02/25/20 14:53 17:11 18:19 19:01 Temp 98.3 98.3 98.3 98.3 Pulse 78 86 Resp 17 18 B/P (MAP) 121/72 (88) 130/72 (91) Pulse Ox 96 97 O2 Delivery Room Air Room Air Room Air Room Air 02/25/20 02/25/20 02/25/20 02/26/20 20:09 23:04 23:15 00:07 Temp 98.1 98.1 Pulse 69 Resp 18 B/P (MAP) 145/77 (99) Pulse Ox 96 O2 Delivery Room Air Room Air Room Air Room Air 02/26/20 02/26/20 03:02 07:00 Temp 97.7 98.0 97.7 98.0 Pulse 73 77 Resp 18 12 B/P (MAP) 119/70 (86) 133/92 (106) Pulse Ox 94 95 O2 Delivery Room Air Room Air Intake and Output 02/25/20 02/25/20 02/26/20 15:00 23:00 07:00 Intake Total 520 ml 410 ml 50 ml Output Total 250 ml 750 ml 1025 ml Balance 270 ml -340 ml -975 ml Images BRAIN W/O CONTRAST History: Altered mental status. Weakness. Technique: Multiplanar, multi sequential MR imaging was performed of the brain without contrast. Comparison: Head CT February 24, 2020 Findings: No acute infarct. No intracranial hemorrhage. No mass effect. Dilated posterior lateral ventricles. Normal caliber third ventricle. No evidence of obstructive hydrocephalus. Small chronic left cerebellar lacunar infarct. Right inferior basal ganglia most likely prominent perivascular space. Mild foci of T2/FLAIR hyperintensities within the periventricular white matter, most often due to chronic microvascular ischemia. Imaged orbits are unremarkable. Imaged paranasal sinuses and mastoid air cells are clear. Impression: 1. No acute intracranial abnormality. 2. Dilated posterior lateral ventricles, unchanged. 3. Chronic tiny left cerebellar infarct. DAYANNA BAER MD Feb 26, 2020 13:06
[2020-02-26] MEDS: traMADol 50 MG TABLET PO PRN ×2 (13:24→22:18)
[2020-02-26 15:00] VITALS: BP 132/83
--- NOTE | 2020-02-26 15:12 | PDOC ---
Infectious Disease Note Subjective Subjective c/o leg cramps No fevers last 24 hrs Denies SOA/N/V Vital Sign Vital Signs Vital Signs Date Time Temp Pulse Resp B/P (MAP) Pulse Ox O2 Delivery O2 Flow Rate FiO2 02/26/20 14:24 20 Room Air 02/26/20 11:00 98.9 102 135/69 (91) 93 98.9 Physical Exam PHYSICAL EXAM GENERAL: Lying down, alert, bicycling in the air HENT: Oral cavity clear NECK: Supple LUNGS: Clear CV: S1 and S2 ABD: Soft, nontender, bowel sounds active EXT: No gross edema or cyanosis SKIN: warm to touch EVENT EXECUTIVE: Alert, slow verbal responds Labs Micro Microbiology 02/24/20 Blood Culture - Preliminary, Resulted NO GROWTH AFTER 2 DAYS URINE CULTURE RES 1 Preliminary Escherichia coli Greater than 100,000 colony forming units per mL Objective Assessment Encephalopathy, etiology is unclear. MRI neg,improving Urinary tract infection. 02/23. E. coli Lactic acidosis - better Behavioral disorder. Hydrocephalus. Chronic low back pain s/p steroid injection, 02/15 Plan Plan of Care f/u urine cultures, susceptibilities still pending BC neg so far Continue Meropenem Supportive care Attending Co-Sign The patient was seen and interviewed as well as examined at the bedside. The chart was reviewed. The case was discussed. Agree with the plan of care. MARLI CRUZ APRN Feb 26, 2020 15:12 INDIO PEARCE MD Feb 26, 2020 15:56
[2020-02-26] MEDS ORDERED: PHENAZOPYRIDINE 200 MG TABLET. PO PRN (16:45)
[2020-02-26] MEDS: METHADONE 10 MG TABLET. PO SCH (17:50)
[2020-02-26 19:00] VITALS: BP 121/81
[2020-02-26] MEDS: LIDOCAINE (700MG/PATCH) PATCH. TD SCH (22:00)
[2020-02-26] MEDS: traZODone 100 MG TABLET. PO SCH (22:01)
[2020-02-26] MEDS: MIRTAZAPINE 15 MG TABLET PO SCH (22:01)
[2020-02-26] MEDS: ENOXAPARIN 40 MG/0.4 ML SYRINGE. SQ SCH (22:02)
[2020-02-26 23:00] VITALS: BP 124/79
[2020-02-27 03:00] VITALS: BP 134/75
[2020-02-27] MEDS ORDERED: traMADol 50 MG TABLET PO ONE (03:00)
[2020-02-27] MEDS: LORazepam 0.5 MG TABLET PO PRN ×2 (03:01→16:45)
[2020-02-27] MEDS: traMADol 50 MG TABLET PO PRN ×3 (04:29→17:24)
[2020-02-27] MEDS: IV NORMAL SALINE 1000ML BAG 1,000 ML IV SCH ×2 (04:36→14:00)
[2020-02-27] MEDS: MEROPENEM 500 MG in IV NORMAL SALINE 50ML 50 ML IV SCH ×3 (05:49→17:25)
[2020-02-27] MEDS: METHADONE 10 MG TABLET. PO SCH ×3 (05:50→21:38)
[2020-02-27 07:00] VITALS: BP 117/71
[2020-02-27] MEDS: TAMSULOSIN 0.4 MG CAP.ER.24H. PO SCH (08:50)
[2020-02-27] MEDS: MAGNESIUM OXIDE 400 MG TABLET PO SCH ×2 (08:50→21:37)
[2020-02-27] MEDS: CHOLECALCIFEROL (VITAMIN D3) 1,000 UNIT TABLET PO SCH (08:50)
[2020-02-27] MEDS: GABAPENTIN 300 MG CAPSULE. PO SCH ×3 (08:51→21:39)
[2020-02-27] MEDS: DULoxetine HCL 30 MG CAPSULE.DR PO SCH (08:51)
[2020-02-27] MEDS: FINASTERIDE 5 MG TABLET. PO SCH (08:51)
[2020-02-27] MEDS: PATCH REMOVAL. MC SCH (08:55)
[2020-02-27 10:45] LABS: BASO % 1 % (0-3); EOS % 1 % (0-3); HEMATOCRIT 39.7 % (39.0-53.0); HEMOGLOBIN 13.1 g/dL (13.0-17.5); LYMPH % 31 % (24-48); MEAN CORPUSCULAR HEMOGLOBIN 28 pg (25-35); MEAN CORPUSCULAR HGB CONC 33 g/dL (31-37); MEAN CORPUSCULAR VOLUME 84 fL (79-100); MONO # 0.4 x10^3/uL (0.0-1.1); MONO % 7 % (0-9); NEUT # 4.1 x10^3/uL (1.8-7.7); NEUT % 61 % (31-73); PLATELET COUNT 233 x10^3/uL (140-400); RED BLOOD COUNT 4.74 x10^6/uL (4.30-5.70); RED CELL DISTRIBUTION WIDTH 16.2 % (11.5-14.5); WHITE BLOOD COUNT 6.6 x10^3/uL (4.0-11.0)
[2020-02-27 10:55] LABS: ALBUMIN 2.9 g/dL (3.4-5.0); CALCIUM 8.4 mg/dL (8.5-10.1); CREATININE 0.8 mg/dL (0.7-1.3); POTASSIUM 3.8 mmol/L (3.5-5.1); TOTAL BILIRUBIN 0.4 mg/dL (0.2-1.0); TOTAL PROTEIN 5.8 g/dL (6.4-8.2)
--- NOTE | 2020-02-27 10:55 | PDOC ---
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 URINE CULTURE RES 1 Preliminary Escherichia coli Greater than 100,000 colony forming units per mL Objective Assessment Encephalopathy, etiology is unclear. MRI neg Urinary tract infection. 02/23. E. coli Lactic acidosis - better Behavioral disorder. Hydrocephalus. Chronic low back pain s/p steroid injection, 02/15 Plan Plan of Care f/u urine cultures, susceptibilities still pending BC neg so far Continue Meropenem Today's labs pending Supportive care Attending Co-Sign The patient was seen and interviewed as well as examined at the bedside. The chart was reviewed. The case was discussed. Agree with the plan of care. MARLI CRUZ APRN Feb 27, 2020 10:55 INDIO PEARCE MD Feb 27, 2020 12:29
[2020-02-27 11:00] VITALS: BP 97/45
[2020-02-27] MEDS: clonazePAM 0.5 MG TABLET PO PRN ×2 (11:36→21:37)
--- NOTE | 2020-02-27 12:03 | PN ---
DATE: 02/27/2020 SUBJECTIVE: The patient is a 64-year-old male patient with multitude of medical problems, who apparently was admitted to the Emergency Room of [facility] as he was brought by EMS from [facility] with a chief complaint of altered mental status. The patient is well known to EMS and he was lying in the sun in the parking lot. On the day of admission, the patient was called as the patient was lying in the lobby area at the [facility]. He was encephalopathic and unresponsive, although he does respond to sternal rub. The patient takes pain medication and at least when he was discharged from [facility]. He was on methadone 25 mg 3 times a day. He was evaluated in the Emergency Room and his urinalysis showed he is positive for nitrite and more than 40 wbc's and too many bacteria and urine culture has eventually grown more than 100,000 colony forming units per mL of Escherichia coli that is sensitive to cefepime, ceftriaxone, also meropenem, piperacillin/tazobactam, tetracycline and trimethoprim/sulfamethoxazole. He was seen apparently in consultation by the Infectious Disease specialist as well as the neurologist and he was seen also by the neurologist and apparently all imaging including CT scan of the head showed there is no evidence of acute intracranial hemorrhage. There is stable lateral ventriculomegaly, although the third ventricle not significantly dilated finding again may be due to more central atrophy rather than hydrocephalus. His MRI of the brain showed no acute intracranial abnormality, again showed dilated posterolateral ventricles unchanged and chronic tiny left cerebellar infarct. When I saw him today, he was sitting on the edge of the bed, complaining of severe pain. PHYSICAL EXAMINATION: GENERAL: When I saw him, there was no pallor, jaundice, cyanosis or thyromegaly. No jugular venous distention. No lower limb edema. VITAL SIGNS: His heart rate was 65, blood pressure was 97/45, temperature was 98.2, respiratory rate was 16, and oxygen saturation was 94% on room air. HEAD, EYES, EARS, NOSE AND THROAT: Showed normocephalic, atraumatic. NECK: Supple. HEART: Showed normal first and second heart sounds. No gallop, rub or murmur. CHEST: Clear to auscultation. No crepitation or rhonchi. ABDOMEN: Scaphoid, soft, nontender. NEUROLOGIC: He is awake, alert, responding appropriately. All cranial nerves are intact. He moves extremities without difficulty. His intake over the last 24 hours was 980, output was 2000. LABORATORY DATA: As of this morning, his serum sodium was 140, potassium 3.8, chloride 103, bicarbonate 33, anion gap of 4, BUN 15, creatinine 0.8, estimated GFR was 98 mL per minute. His glucose was 105, calcium was 8.4. Total bilirubin, AST, ALT, alkaline phosphatase were normal. Total protein was 5.8, albumin 2.9. ASSESSMENT: 1. Encephalopathy, probably multifactorial. CT scan and MRI were negative. 2. Urinary tract infection with growth of more than 100,000 colony-forming units, which showed E. coli sensitive to meropenem. 3. Sepsis with lactic acidosis, improved. 4. Chronic low back pain, status post spinal epidural steroid injection on 02/15. The patient was [facility] 11/[facility], was discharged on 01/25/2020. His psychotropic medication included Cymbalta 90 mg once a day, Neurontin 600 mg 3 times a day. He was also on Zyprexa as needed and trazodone 100 mg at bedtime. He was also on Remeron 15 mg at bedtime, hydroxyzine as needed, Klonopin 0.5 mg 3 times a day and he was discharged to independent living facility in [facility] and we made arrangements for him to be followed by pain management. Also, we made arrangements for him to be seen by primary care physician. He was also on methadone 25 mg 3 times a day. I did resume his methadone. I would also consult the psychiatrist here and perhaps resume his Klonopin. CAESAR DINH MD DR: KENNY/heidi JOB#: [id number] / [id number]
--- NOTE | 2020-02-27 13:53 | PDOC ---
Provider Note Provider Note Telephone note Discussed with nurse, more alert, psychiatry will see regarding suicidality and depression. DAYANNA BAER MD Feb 27, 2020 13:53
[2020-02-27 15:00] VITALS: BP 104/62
[2020-02-27 19:00] VITALS: BP 119/76
[2020-02-27] MEDS: LIDOCAINE (700MG/PATCH) PATCH. TD SCH (21:37)
[2020-02-27] MEDS: MIRTAZAPINE 15 MG TABLET PO SCH (21:37)
[2020-02-27] MEDS: traZODone 100 MG TABLET. PO SCH (21:37)
[2020-02-27] MEDS: ENOXAPARIN 40 MG/0.4 ML SYRINGE. SQ SCH (21:39)
[2020-02-27 23:05] VITALS: BP 94/60
[2020-02-28] MEDS: IV NORMAL SALINE 1000ML BAG 1,000 ML IV SCH ×3 (00:07→15:19)
[2020-02-28] MEDS: MEROPENEM 500 MG in IV NORMAL SALINE 50ML 50 ML IV SCH ×2 (00:07→05:27)
[2020-02-28 05:11] VITALS: BP 97/80
[2020-02-28] MEDS: clonazePAM 0.5 MG TABLET PO PRN (05:27)
[2020-02-28] MEDS: METHADONE 10 MG TABLET. PO SCH ×3 (05:28→22:26)
[2020-02-28 05:53] LABS: ALBUMIN 2.9 g/dL (3.4-5.0); ALBUMIN/GLOBULIN RATIO 1.1 (1.0-1.7); CALCIUM 8.2 mg/dL (8.5-10.1); CREATININE 0.8 mg/dL (0.7-1.3); TOTAL BILIRUBIN 0.3 mg/dL (0.2-1.0); TOTAL PROTEIN 5.5 g/dL (6.4-8.2)
[2020-02-28 06:04] LABS: HEMATOCRIT 37.4 % (39.0-53.0); HEMOGLOBIN 12.3 g/dL (13.0-17.5); RED BLOOD COUNT 4.43 x10^6/uL (4.30-5.70); RED CELL DISTRIBUTION WIDTH 16.1 % (11.5-14.5); WHITE BLOOD COUNT 7.4 x10^3/uL (4.0-11.0)
[2020-02-28 07:00] VITALS: BP 96/54
[2020-02-28] MEDS: LORazepam 0.5 MG TABLET PO PRN (08:41)
[2020-02-28] MEDS: PATCH REMOVAL. MC SCH (08:41)
[2020-02-28] MEDS: MAGNESIUM OXIDE 400 MG TABLET PO SCH ×2 (08:41→20:44)
[2020-02-28] MEDS: FINASTERIDE 5 MG TABLET. PO SCH (08:41)
[2020-02-28] MEDS: CHOLECALCIFEROL (VITAMIN D3) 1,000 UNIT TABLET PO SCH (08:41)
[2020-02-28] MEDS: DULoxetine HCL 30 MG CAPSULE.DR PO SCH (08:41)
[2020-02-28] MEDS: TAMSULOSIN 0.4 MG CAP.ER.24H. PO SCH (08:41)
[2020-02-28] MEDS: GABAPENTIN 300 MG CAPSULE. PO SCH ×3 (08:41→20:44)
--- NOTE | 2020-02-28 09:38 | PDOC ---
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 Medications: Inpatient Meds: Current Medications Medications (Trade) Dose Ordered Sig/Gabriela Start Time Stop Time Status Last Admin Dose Admin Acetaminophen (Tylenol) 650 mg PRN Q4HRS PRN 02/24/20 13:30 02/24/20 16:15 650 MG Al Hydroxide/Mg Hydroxide (Mylanta Plus Xs) 30 ml PRN DAILY PRN 02/24/20 13:30 Albuterol Sulfate (Ventolin Neb Soln) 2.5 mg PRN Q4HRS PRN 02/24/20 15:00 Albuterol/ Ipratropium (Duoneb) 3 ml Q4H 02/24/20 13:30 02/24/20 13:59 DC Aspirin (Jennifer Aspirin) 162.5 mg 1X ONCE 02/24/20 16:00 02/24/20 16:01 DC 02/24/20 16:55 162.5 MG Ciprofloxacin/ Dextrose 200 ml @ 200 mls/hr 1X ONCE 02/24/20 10:30 02/24/20 11:29 DC 02/24/20 11:04 200 MLS/HR Clonazepam (KlonoPIN) 0.5 mg PRN Q8HRS PRN 02/27/20 11:30 02/28/20 05:27 0.5 MG Clonidine HCl (Catapres) 0.1 mg PRN Q6HRS PRN 02/24/20 13:30 02/24/20 22:55 0.1 MG Docusate Sodium (Colace) 100 mg PRN BID PRN 02/24/20 13:30 Duloxetine HCl (Cymbalta) 30 mg DAILY 02/24/20 15:00 02/28/20 08:41 30 MG Enoxaparin Sodium (Lovenox 40mg Syringe) 40 mg Q24H 02/24/20 21:00 02/27/20 21:39 40 MG Finasteride (Proscar) 5 mg DAILY 02/24/20 15:00 02/28/20 08:41 5 MG Gabapentin (Neurontin) 300 mg TID 02/24/20 21:00 02/28/20 08:41 300 MG Guaifenesin (Robitussin) 200 mg PRN Q4HRS PRN 02/24/20 13:30 Lidocaine (Lidoderm) 1 patch QHS 02/24/20 21:30 02/27/20 21:37 1 PATCH Lorazepam (Ativan) 0.5 mg PRN Q12HR PRN 02/25/20 11:30 02/28/20 08:41 0.5 MG Magnesium Oxide (Magnesium Oxide) 400 mg BID 02/24/20 21:00 02/28/20 08:41 400 MG Meropenem 1 gm/ Sodium Chloride 100 ml @ 200 mls/hr Q8HRS 02/24/20 14:00 UNV Meropenem 500 mg/ Sodium Chloride 50 ml @ 100 mls/hr Q6HRS 02/24/20 14:00 02/28/20 05:27 100 MLS/HR Methadone HCl (Dolophine) 25 mg Q8HRS 02/26/20 19:00 02/28/20 05:28 25 MG Mirtazapine (Remeron) 15 mg QHS 02/24/20 21:00 02/27/20 21:37 15 MG Miscellaneous (Lidoderm Patch Removal) 1 ea DAILY 02/25/20 09:00 02/28/20 08:41 1 EA Naloxone HCl (Narcan) 0.4 mg 1X ONCE 02/24/20 09:00 02/24/20 09:06 DC 02/24/20 09:13 0.4 MG Non-Formulary Medication (Duloxetine Hcl (Cymbalta)) 1 cap DAILY 02/25/20 09:00 UNV Olanzapine (ZyPREXA IM) 10 mg 1X ONCE 02/24/20 20:00 02/24/20 20:01 DC 02/24/20 20:06 10 MG Olanzapine (ZyPREXA ZYDIS) 5 mg PRN BID PRN 02/24/20 20:00 02/26/20 13:24 5 MG Ondansetron HCl (Zofran) 4 mg PRN Q4HRS PRN 02/24/20 13:30 02/24/20 19:27 4 MG Phenazopyridine HCl (Pyridium) 200 mg PRN TID PRN 02/26/20 16:45 02/26/20 17:49 200 MG Sodium Monofluorophosphate (Fleet Adult) 133 ml PRN DAILY PRN 02/24/20 13:30 Sodium Chloride 1,000 ml @ 100 mls/hr Q10H 02/24/20 16:00 02/28/20 00:07 100 MLS/HR Sodium Chloride (Normal Saline Flush) 3 ml QSHIFT PRN 02/24/20 13:30 Tamsulosin HCl (Flomax) 0.4 mg DAILY 02/24/20 15:00 02/28/20 08:41 0.4 MG Tramadol HCl (Ultram) 50 mg 1X ONCE 02/27/20 03:00 02/27/20 03:01 DC 02/27/20 03:01 50 MG Trazodone HCl (Desyrel) 100 mg QHS 02/24/20 21:00 02/27/20 21:37 100 MG Vitamin D (Vitamin D3) 2,000 unit DAILY 02/24/20 15:00 02/28/20 08:41 2,000 UNIT Labs: Lab Laboratory Tests Test 02/27/20 10:30 02/28/20 05:10 White Blood Count 6.6 x10^3/uL (4.0-11.0) 7.4 x10^3/uL (4.0-11.0) Red Blood Count 4.74 x10^6/uL (4.30-5.70) 4.43 x10^6/uL (4.30-5.70) Hemoglobin 13.1 g/dL (13.0-17.5) 12.3 g/dL (13.0-17.5) Hematocrit 39.7 % (39.0-53.0) 37.4 % (39.0-53.0) Mean Corpuscular Volume 84 fL (79-100) 84 fL (79-100) Mean Corpuscular Hemoglobin 28 pg (25-35) 28 pg (25-35) Mean Corpuscular Hemoglobin Concent 33 g/dL (31-37) 33 g/dL (31-37) Red Cell Distribution Width 16.2 % (11.5-14.5) 16.1 % (11.5-14.5) Platelet Count 233 x10^3/uL (140-400) 214 x10^3/uL (140-400) Neutrophils (%) (Auto) 61 % (31-73) Lymphocytes (%) (Auto) 31 % (24-48) Monocytes (%) (Auto) 7 % (0-9) Eosinophils (%) (Auto) 1 % (0-3) Basophils (%) (Auto) 1 % (0-3) Neutrophils # (Auto) 4.1 x10^3/uL (1.8-7.7) Lymphocytes # (Auto) 2.0 x10^3/uL (1.0-4.8) Monocytes # (Auto) 0.4 x10^3/uL (0.0-1.1) Eosinophils # (Auto) 0.0 x10^3/uL (0.0-0.7) Basophils # (Auto) 0.0 x10^3/uL (0.0-0.2) Sodium Level 140 mmol/L (136-145) 138 mmol/L (136-145) Potassium Level 3.8 mmol/L (3.5-5.1) 4.0 mmol/L (3.5-5.1) Chloride Level 103 mmol/L (98-107) 103 mmol/L (98-107) Carbon Dioxide Level 33 mmol/L (21-32) 31 mmol/L (21-32) Anion Gap 4 (6-14) 4 (6-14) Blood Urea Nitrogen 15 mg/dL (8-26) 17 mg/dL (8-26) Creatinine 0.8 mg/dL (0.7-1.3) 0.8 mg/dL (0.7-1.3) Estimated GFR (Cockcroft-Gault) 98.0 98.0 BUN/Creatinine Ratio 19 (6-20) 21 (6-20) Glucose Level 105 mg/dL (70-99) 102 mg/dL (70-99) Calcium Level 8.4 mg/dL (8.5-10.1) 8.2 mg/dL (8.5-10.1) Total Bilirubin 0.4 mg/dL (0.2-1.0) 0.3 mg/dL (0.2-1.0) Aspartate Amino Transf (AST/SGOT) 15 U/L (15-37) 16 U/L (15-37) Alanine Aminotransferase (ALT/SGPT) 20 U/L (16-63) 22 U/L (16-63) Alkaline Phosphatase 87 U/L (46-116) 84 U/L (46-116) Total Protein 5.8 g/dL (6.4-8.2) 5.5 g/dL (6.4-8.2) Albumin 2.9 g/dL (3.4-5.0) 2.9 g/dL (3.4-5.0) Albumin/Globulin Ratio 1.0 (1.0-1.7) 1.1 (1.0-1.7) Objective: Assessment: Encephalopathy, etiology is unclear. MRI neg,improving Urinary tract infection. 02/23. E. coli FQ resistant, ceftriaxone sensitive Lactic acidosis - better Behavioral disorder. Hydrocephalus. Chronic low back pain s/p steroid injection, 02/15 Plan: Plan of Care DC Meropenem Ceftriaxone , give 200 mg followed by 800mg if he tolerates the first dose d/w pharmacy Supportive care d/w INDIO CARY MD Feb 28, 2020 09:37
[2020-02-28] MEDS ORDERED: NORMAL SALINE IV ONE ×2 (10:30→11:00)
[2020-02-28] MEDS ORDERED: CEFTRIAXONE SODIUM IV ONE ×2 (10:30→11:00)
[2020-02-28 10:45] VITALS: BP 108/73
[2020-02-28] MEDS ORDERED: CLONAZEPAM1 MG PO (11:27)
[2020-02-28] MEDS ORDERED: METH5TAB2 PO (11:27)
[2020-02-28] MEDS ORDERED: CEFD300C PO (11:27)
--- NOTE | 2020-02-28 11:29 | SNU/HH DC ---
DISCHARGE ORDERS DISCHARGE INFORMATION: DISCHARGE DATE: Feb 28, 2020 FINAL DIAGNOSIS Problems Medical Problems: (1) Altered mental status Status: Acute (2) UTI (urinary tract infection) Status: Acute CONDITION ON DISCHARGE: Stable CODE STATUS: Code Status: Full SNF: SNF STAY <30 DAYS: Yes POST DISCHARGE ORDERS: ACTIVITY ORDERS: Resume previous activity DIET AFTER DISCHARGE: Regular TREATMENT/EQUIPMENT ORDERS: Physical Therapy For: Evalulation/Treatment Occupational Therapy For: Evaluation/Treatment DISCHARGE MEDICATIONS: Home Meds Active Scripts Cefdinir (CEFDINIR) 300 Mg Capsule, 1 CAP PO BID for uti for 7 Days, #14 CAP Prov:CAESAR DINH MD 02/28/20 Clonazepam (CLONAZEPAM) 1 Mg Tablet, 1 MG PO TID for FOR ANXIETY for 30 Days, #90 TAB Prov:CAESAR DINH MD 02/28/20 Methadone Hcl (METHADONE HCL) 5 Mg Tablet, 25 MG PO TID for pain for 30 Days, #450 TAB Prov:CAESAR DINH MD 02/28/20 Ondansetron Hcl (ZOFRAN) 4 Mg Tablet, 4 MG PO PRN TID PRN for NAUSEA for 7 Days, #15 nausea/vomiting Prov:KRISS DURBIN DO 02/21/20 Reported Medications Duloxetine Hcl (CYMBALTA) 30 Mg Capsule.dr, 1 CAP PO DAILY for depression, #30 CAP 5 Refills 02/16/20 Duloxetine Hcl (CYMBALTA) 60 Mg Capsule.dr, 1 CAP PO DAILY for depression, #90 CAP 3 Refills 02/16/20 Tamsulosin Hcl (FLOMAX) 0.4 Mg Cap.er.24h, 0.4 MG PO DAILY for prostrate, TAB 02/16/20 Magnesium Oxide (Magnesium) 400 Mg Tablet, 1 TAB PO BID for supplment for 30 Days, #60 TAB 0 Refills NEEDED 20 Mirtazapine (MIRTAZAPINE) 15 Mg Tab.rapdis, 1 TAB PO QHS for depression for 30 Days, #30 TAB 0 Refills 02/16/20 Olanzapine (OLANZAPINE) 5 Mg Tablet, 1 TAB PO QHS for depression, #30 TAB 2 Refills 02/15/20 Finasteride (FINASTERIDE) 5 Mg Tablet, 1 TAB PO DAILY for prostrate, #30 TAB 11 Refills 3/25/20 Trazodone Hcl (TRAZODONE HCL) 100 Mg Tablet, 1 TAB PO QHS for sleep, #30 TAB 1 Refill 02/16/20 Gabapentin (GABAPENTIN ) 300 Mg Capsule, 300 MG PO TID for NEUROGENIC PAIN, CAP 02/16/20 Cholecalciferol (Vitamin D3) (Vitamin D3) 2,000 Unit Tab.chew, 1 TAB PO DAILY for supplment for 30 Days, #30 TAB 0 Refills 02/16/20 Discontinued Reported Medications Ciprofloxacin Hcl (CIPROFLOXACIN HCL) 250 Mg Tablet, PO BID for uti, TAB 02/16/20 Discontinued Scripts Ciprofloxacin Hcl (CIPRO) 500 Mg Tablet, 1 TAB PO BID for 10 Days, #20 TAB 0 Refills Prov:KRISS DURBIN DO 02/21/20 Promethazine Hcl (PROMETHAZINE HCL) 25 Mg Supp.rect, 25 MG RC Q6H PRN for NAUSEA/VOMITING, #10 SUPP.RECT Prov:MARTA WERNER DO 11/13/19 CAESAR DINH MD Feb 28, 2020 11:28
--- NOTE | 2020-02-28 11:42 | PN ---
DATE: 02/28/2020 SUBJECTIVE: The patient is resting, slightly propped up in bed, no apparent distress. He was sleepy, but arousable, continued to be somewhat confused. Physical therapist did not recommend discharging back home as he continued to be very weak and unsteady and confused. PHYSICAL EXAMINATION: GENERAL: When I examined him this morning, he looked well and was clearly in no apparent respiratory distress. No pallor, jaundice, cyanosis, or thyromegaly. No jugular venous distention. No limb edema. VITAL SIGNS: His heart rate was 60, blood pressure was 108/73, temperature was 98.3, respiratory rate was 18, and oxygen saturation was 93%. HEAD, EYES, EARS, NOSE, AND THROAT: Normocephalic, atraumatic. NECK: Supple. HEART: Showed normal first and second heart sounds. No gallop, rub, or murmur. CHEST: Clear to auscultation. No crepitation or rhonchi. ABDOMEN: Distended, soft, nontender. NEUROLOGIC: He is sleepy, but arousable. All cranial nerves are intact. He moves extremities without difficulty, ambulates with a walker. LABORATORY DATA: His lab work this morning showed a white cell count 7400, hemoglobin 12, his hematocrit 37, MCV 84, and platelet count 214,000. Serum sodium was 138, potassium 4, chloride 103, bicarbonate 31, anion gap of 4, BUN 17, creatinine was 0.8, and estimated GFR was 98 mL per minute. His glucose 102, calcium was 8.2. Total bilirubin, AST, ALT, and alkaline phosphatase were normal. Total protein was 5.5, albumin was 2.9. His urine culture showed growth of more than 100,000 colony-forming units per mL of Escherichia coli, sensitive to all cephalosporins. PLAN: To continue with current plan of management. I discussed with the physical therapist as well as social group worker and the plan is for him to be discharged to a care home facility. All the discharge order is ready and if the patient is accepted, he should continue on cefdinir 300 mg twice a day for 7 more days. CAESAR DINH MD DR: KENNY/heidi JOB#: [id number] / [id number]
--- NOTE | 2020-02-28 14:11 | PDOC ---
PROGRESS NOTES Assessment Assessment Acute MS changes. Metabolic encephalopathy. UTI. Cognitive impairment. Brain atrophy. Behavior problems. No evidence of acute CVA this time. RECOMMENDATIONS/PLAN: Treat UTI per floor team. Treat medical diseases. OT/PT. HISTORY OF THE PRESENT ILLNESS: This is a 64-year-old patient with similar past medical history of intermittent MS changes was found with altered mental status to be brought to the ER of [facility]. The patient was reportedly had similar episodes several times in the past. He was found lying in the sun in the parking lot and EMS usually talked to him and he went inside, but he did not respond this time so he was brought in. His initial assessments were WNL in the ER, but his US test was abnormal and his temperature was 99.1 . His MS changes then improved, but he still has some repeatedly movements in his LE as stating try to fine comfort position. 02/28/20: MS changes improved in some degree. Past Medical History Anxiety, scoliosis,CHRONIC BACK PAIN PAST SURGERY HISTORY: Bladder surgery. Family History High Cholestrol, COPD Social History Smoke: <1 pack per day ALCOHOL: none Drugs: None ALLERGY: Unknown MEDICATIONS: Refer to MAR REVIEW OF SYSTEMS: Constitutional: No malnutrition, weight loss, cachexia. Head: No traumatic brain or head injury. Skin: No edema, or rash. Ear: No infection. Eyes: No vision loss or color blindness. Nose: No bleeding or purulent discharges. Hearing: No hearing decrease. Neck: No injury. Cardiac: HTN. Pulmonary: Smoking. GI: No GI ulcer, GI bleeding. Urinary/genital: UTI. Endocrinologic: No cousin face, craniofacial dysmorphism, polydactyly. Skeletomuscular: No muscular atrophy, deformity. Neurological: see HP. Psychiatric: Denies drug use/abuse. Otherwise, not [id number] review of systems. PHYSICAL EXAMINATION: General appearance is in no acute distress. HEENT: Normocephalic and nontraumatic. Eyes, nose, ears, and throat are unremarkable. Neck is supple. No lymphadenopathy. No crepitus. Cardiovascular: S1, S2, regular rate and rhythm. Pulmonary: Clear to auscultation bilaterally. Abdomen: Bowel sounds are positive. Extremities: No rash, lesions, or edema. No restriction of range of motion NEUROLOGICAL EXAMINATION: Awake. Not oriented to time, place and person. PERRL. EOMI. CN: no focal findings. Muscle tone: within normal. Muscle strength: 5 DTR: 2 Plantar reflex: Flexor response bilaterally Gait: not examined while in bed. Sensory exam: no abnormal findings. No cerebellar signs elicited. F-T-N test not performed due to not cooperative. Objective Objective Vital Signs Date Time Temp Pulse Resp B/P (MAP) Pulse Ox O2 Delivery O2 Flow Rate FiO2 02/28/20 10:45 98.3 60 18 108/73 (85) 93 Room Air 98.3 Intake and Output 02/28/20 07:00 Output Total 1150 ml Balance -1150 ml Output Urine Total 1150 ml # Voids 1 Vitals Signs Vitals VS - Last 72 Hours, by Label Date Time Temp Pulse Resp B/P (MAP) Pulse Ox O2 Delivery O2 Flow Rate FiO2 02/28/20 10:45 98.3 60 18 108/73 (85) 93 Room Air 98.3 02/28/20 07:20 Room Air 02/28/20 07:00 98.1 68 20 96/54 (68) 94 Room Air 98.1 02/28/20 05:11 97.5 66 20 97/80 (86) 97 Room Air 97.5 02/27/20 23:05 97.4 73 20 94/60 (71) 92 Room Air 97.4 02/27/20 20:00 Room Air 02/27/20 19:00 97.6 75 20 119/76 (90) 95 Room Air 97.6 02/27/20 18:24 20 Room Air 02/27/20 17:24 20 Room Air 02/27/20 15:00 98.4 64 16 104/62 (76) 92 Room Air 98.4 02/27/20 12:37 20 Room Air 02/27/20 11:37 20 Room Air 02/27/20 11:00 98.2 65 16 97/45 (62) 94 Room Air 98.2 02/27/20 08:00 Room Air 02/27/20 07:00 98.0 66 16 117/71 (86) 96 Room Air 98.0 Laboratory Laboratory Laboratory Tests Test 02/28/20 05:10 White Blood Count 7.4 x10^3/uL (4.0-11.0) Red Blood Count 4.43 x10^6/uL (4.30-5.70) Hemoglobin 12.3 g/dL (13.0-17.5) Hematocrit 37.4 % (39.0-53.0) Mean Corpuscular Volume 84 fL (79-100) Mean Corpuscular Hemoglobin 28 pg (25-35) Mean Corpuscular Hemoglobin Concent 33 g/dL (31-37) Red Cell Distribution Width 16.1 % (11.5-14.5) Platelet Count 214 x10^3/uL (140-400) Sodium Level 138 mmol/L (136-145) Potassium Level 4.0 mmol/L (3.5-5.1) Chloride Level 103 mmol/L (98-107) Carbon Dioxide Level 31 mmol/L (21-32) Anion Gap 4 (6-14) Blood Urea Nitrogen 17 mg/dL (8-26) Creatinine 0.8 mg/dL (0.7-1.3) Estimated GFR (Cockcroft-Gault) 98.0 BUN/Creatinine Ratio 21 (6-20) Glucose Level 102 mg/dL (70-99) Calcium Level 8.2 mg/dL (8.5-10.1) Total Bilirubin 0.3 mg/dL (0.2-1.0) Aspartate Amino Transf (AST/SGOT) 16 U/L (15-37) Alanine Aminotransferase (ALT/SGPT) 22 U/L (16-63) Alkaline Phosphatase 84 U/L (46-116) Total Protein 5.5 g/dL (6.4-8.2) Albumin 2.9 g/dL (3.4-5.0) Albumin/Globulin Ratio 1.1 (1.0-1.7) Microbiology 02/24/20 Urine Culture - Final, Complete 02/24/20 Urine Culture Result 1 (BETO) - Final, Complete 02/24/20 Antimicrobic Susceptibility - Final, Complete 02/24/20 Blood Culture - Preliminary, Resulted NO GROWTH AFTER 3 DAYS Medication Medications Current Medications Aspirin (Children'S Aspirin) 81 mg DAILYWBKFT PO ; Start 02/29/20 at 08:00 Ceftriaxone Sodium 0.2 gm/ Sodium Chloride 50 ml @ 100 mls/hr 1X ONCE IV Last administered on 02/28/20at 10:16; Start 02/28/20 at 10:30; Stop 02/28/20 at 10:59; Status DC Ceftriaxone Sodium 0.8 gm/ Sodium Chloride 50 ml @ 100 mls/hr 1X ONCE IV Last administered on 02/28/20at 11:19; Start 02/28/20 at 11:00; Stop 02/28/20 at 11:29; Status DC Ceftriaxone Sodium (Rocephin) 1 gm Q24H IVP ; Start 02/29/20 at 11:00 Comment Review of Relevant I have reviewed the following items willem (where applicable) has been applied. HAN FELTON MD Feb 28, 2020 14:11
[2020-02-28 14:38] VITALS: BP 116/63
--- NOTE | 2020-02-28 18:50 | PDOC1 ---
History & Psych Evaluation Date of Admission: Date of Admission DATE: 02/28/20 TIME: 18:28 Source: Source: Caregiver, Chart review, Patient Identification: Identification He is a 64-year-old gentleman admitted with altered mental status. Chief Complaint: Chief Complaint Altered mental status, anxiety, depression History of Present Illness: HPI: He is a 64-year-old gentleman admitted with altered mental status. He was found lying in parking lot. Seen for comprehensive psychiatric evaluation. He has previous history of depression and anxiety admitted at [facility]. Upon interview, he appears cooperative and interactive. He states, he has history of depression and anxiety. States, pain is the major precipitating factor for his depression. States, he is on multiple pain medications, however, in spite of being on multiple pain medications his pain gets exacerbated very often. Depression is characterized as hopelessness, insomnia, irritability, sad mood, and anhedonia. States, insomnia is another perpetuating factor for his depression. States, when insomnia and pain improves, his depression improves considerably. States, recently he has been noticing that he gets anxious very often. Anxiety is reportedly high and intense. He endorses panic attacks with typical symptomatology of difficulty catching up his breath, chest heaviness, impending doom, and fear of dying. He states, this is entirely a new thing for him. He relates his worsening depression and anxiety to his medical problems and particularly pain exacerbation. He has previous history of suicidal attempt (not sure). States, he took overdose of pain medications due to severe pain at that point. However, he denies history of recurrent suicidal thoughts. He denies history of psychosis, auditory or visual hallucinations. Denies history of andre, hypomania, or bipolar mood episodes. He smokes 1 pack of cigarettes per day. Denies illicit substance use. Denies alcohol abuse. Past Psychiatric History: Previous diagnoses: Major depressive disorder, anxiety disorder. Previously hospitalized with suspected suicidal attempt which he relates to an exacerbated pain episode. Denies any other suicidal attempt or near attempt. Denies history of recurrent suicidal thoughts. Past Medical History: Please see medical chart for details. Family History: Family history is positive for alcoholism in mother. Denies family history of suicide. 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 He has 1 daughter. Presently he is retired and on disability. Denies legal issues. Current Medications: Current Medications Current Medications Medications (Trade) Dose Ordered Sig/Gabriela Start Time Stop Time Status Last Admin Dose Admin Acetaminophen (Tylenol) 650 mg PRN Q4HRS PRN 02/24/20 13:30 02/24/20 16:15 650 MG Al Hydroxide/Mg Hydroxide (Mylanta Plus Xs) 30 ml PRN DAILY PRN 02/24/20 13:30 Albuterol Sulfate (Ventolin Neb Soln) 2.5 mg PRN Q4HRS PRN 02/24/20 15:00 Albuterol/ Ipratropium (Duoneb) 3 ml Q4H 02/24/20 13:30 02/24/20 13:59 DC Aspirin (Jennifer Aspirin) 162.5 mg 1X ONCE 02/24/20 16:00 02/24/20 16:01 DC 02/24/20 16:55 162.5 MG Aspirin (Children'S Aspirin) 81 mg DAILYWBKFT 02/29/20 08:00 Ceftriaxone Sodium 0.2 gm/ Sodium Chloride 50 ml @ 100 mls/hr 1X ONCE 02/28/20 10:30 02/28/20 10:59 DC 02/28/20 10:16 100 MLS/HR Ceftriaxone Sodium 0.8 gm/ Sodium Chloride 50 ml @ 100 mls/hr 1X ONCE 02/28/20 11:00 02/28/20 11:29 DC 02/28/20 11:19 100 MLS/HR Ceftriaxone Sodium (Rocephin) 1 gm Q24H 02/29/20 11:00 Ciprofloxacin/ Dextrose 200 ml @ 200 mls/hr 1X ONCE 02/24/20 10:30 02/24/20 11:29 DC 02/24/20 11:04 200 MLS/HR Clonazepam (KlonoPIN) 0.5 mg PRN Q8HRS PRN 02/27/20 11:30 02/28/20 18:26 DC 02/28/20 05:27 0.5 MG Clonidine HCl (Catapres) 0.1 mg PRN Q6HRS PRN 02/24/20 13:30 02/24/20 22:55 0.1 MG Docusate Sodium (Colace) 100 mg PRN BID PRN 02/24/20 13:30 Duloxetine HCl (Cymbalta) 60 mg DAILY 02/29/20 09:00 Enoxaparin Sodium (Lovenox 40mg Syringe) 40 mg Q24H 02/24/20 21:00 02/27/20 21:39 40 MG Finasteride (Proscar) 5 mg DAILY 02/24/20 15:00 02/28/20 08:41 5 MG Gabapentin (Neurontin) 300 mg TID 02/24/20 21:00 02/28/20 14:12 300 MG Guaifenesin (Robitussin) 200 mg PRN Q4HRS PRN 02/24/20 13:30 Lidocaine (Lidoderm) 1 patch QHS 02/24/20 21:30 02/27/20 21:37 1 PATCH Lorazepam (Ativan) 0.5 mg PRN Q12HR PRN 02/25/20 11:30 02/28/20 08:41 0.5 MG Magnesium Oxide (Magnesium Oxide) 400 mg BID 02/24/20 21:00 02/28/20 08:41 400 MG Meropenem 1 gm/ Sodium Chloride 100 ml @ 200 mls/hr Q8HRS 02/24/20 14:00 UNV Meropenem 500 mg/ Sodium Chloride 50 ml @ 100 mls/hr Q6HRS 02/24/20 14:00 02/28/20 10:27 DC 02/28/20 05:27 100 MLS/HR Methadone HCl (Dolophine) 25 mg Q8HRS 02/26/20 19:00 02/28/20 14:12 25 MG Mirtazapine (Remeron) 15 mg QHS 02/24/20 21:00 02/27/20 21:37 15 MG Miscellaneous (Lidoderm Patch Removal) 1 ea DAILY 02/25/20 09:00 02/28/20 08:41 1 EA Naloxone HCl (Narcan) 0.4 mg 1X ONCE 02/24/20 09:00 02/24/20 09:06 DC 02/24/20 09:13 0.4 MG Non-Formulary Medication (Duloxetine Hcl (Cymbalta)) 1 cap DAILY 02/25/20 09:00 UNV Olanzapine (ZyPREXA IM) 10 mg 1X ONCE 02/24/20 20:00 02/24/20 20:01 DC 02/24/20 20:06 10 MG Olanzapine (ZyPREXA ZYDIS) 5 mg PRN BID PRN 02/24/20 20:00 02/26/20 13:24 5 MG Ondansetron HCl (Zofran) 4 mg PRN Q4HRS PRN 02/24/20 13:30 02/24/20 19:27 4 MG Phenazopyridine HCl (Pyridium) 200 mg PRN TID PRN 02/26/20 16:45 02/26/20 17:49 200 MG Sodium Monofluorophosphate (Fleet Adult) 133 ml PRN DAILY PRN 02/24/20 13:30 Sodium Chloride 1,000 ml @ 100 mls/hr Q10H 02/24/20 16:00 02/28/20 15:19 100 MLS/HR Sodium Chloride (Normal Saline Flush) 3 ml QSHIFT PRN 02/24/20 13:30 Tamsulosin HCl (Flomax) 0.4 mg DAILY 02/24/20 15:00 02/28/20 08:41 0.4 MG Tramadol HCl (Ultram) 50 mg 1X ONCE 02/27/20 03:00 02/27/20 03:01 DC 02/27/20 03:01 50 MG Trazodone HCl (Desyrel) 100 mg QHS 02/24/20 21:00 02/28/20 18:26 DC 02/27/20 21:37 100 MG Vitamin D (Vitamin D3) 2,000 unit DAILY 02/24/20 15:00 02/28/20 08:41 2,000 UNIT Allergies: Allergies: Coded Allergies: Penicillins (Verified Allergy, Severe, anaphylactic, 02/24/20) Has tolerated keflex per RX fill history Sulfa (Sulfonamide Antibiotics) (Verified Allergy, Severe, anaphylactic, 11/13/19) Influenza Virus Vaccines (Verified Allergy, Intermediate, 01/29/20) Mental Status Examination: Mental Status Examination gentleman appears his stated age, fairly groomed. Cooperative and interactive. Speech is soft, regular rate and rhythm. Thought processes mostly goal-directed. Denies auditory or visual hallucinations. No abnormal perceptions noted. Denies suicidal or homicidal thoughts. Mood is down and anxious. Affect is dysthymic and dysphoric. Insight is fair, impulse control is fair, judgment is fair. Attention span and concentration are fair. ROS: CONSTITUTIONAL: Positive for pain. Psychiatric review of system is positive for anxiety, panic attacks, irritability, and depression. Positive for resolving altered mental status Physical Exam: Refer to Physician's note. ASSESSMENT DIRECTOR: No focal deficit MSK: No EPS, TDK, or abnormal involuntary movements Vitals: Vitals Vital Signs Date Time Temp Pulse Resp B/P (MAP) Pulse Ox O2 Delivery O2 Flow Rate FiO2 02/28/20 14:38 97.5 100 20 116/63 (80) 94 Room Air 97.5 Labs: Labs Laboratory Tests Test 02/27/20 10:30 02/28/20 05:10 White Blood Count 6.6 x10^3/uL (4.0-11.0) 7.4 x10^3/uL (4.0-11.0) Red Blood Count 4.74 x10^6/uL (4.30-5.70) 4.43 x10^6/uL (4.30-5.70) Hemoglobin 13.1 g/dL (13.0-17.5) 12.3 g/dL (13.0-17.5) Hematocrit 39.7 % (39.0-53.0) 37.4 % (39.0-53.0) Mean Corpuscular Volume 84 fL (79-100) 84 fL (79-100) Mean Corpuscular Hemoglobin 28 pg (25-35) 28 pg (25-35) Mean Corpuscular Hemoglobin Concent 33 g/dL (31-37) 33 g/dL (31-37) Red Cell Distribution Width 16.2 % (11.5-14.5) 16.1 % (11.5-14.5) Platelet Count 233 x10^3/uL (140-400) 214 x10^3/uL (140-400) Neutrophils (%) (Auto) 61 % (31-73) Lymphocytes (%) (Auto) 31 % (24-48) Monocytes (%) (Auto) 7 % (0-9) Eosinophils (%) (Auto) 1 % (0-3) Basophils (%) (Auto) 1 % (0-3) Neutrophils # (Auto) 4.1 x10^3/uL (1.8-7.7) Lymphocytes # (Auto) 2.0 x10^3/uL (1.0-4.8) Monocytes # (Auto) 0.4 x10^3/uL (0.0-1.1) Eosinophils # (Auto) 0.0 x10^3/uL (0.0-0.7) Basophils # (Auto) 0.0 x10^3/uL (0.0-0.2) Sodium Level 140 mmol/L (136-145) 138 mmol/L (136-145) Potassium Level 3.8 mmol/L (3.5-5.1) 4.0 mmol/L (3.5-5.1) Chloride Level 103 mmol/L (98-107) 103 mmol/L (98-107) Carbon Dioxide Level 33 mmol/L (21-32) 31 mmol/L (21-32) Anion Gap 4 (6-14) 4 (6-14) Blood Urea Nitrogen 15 mg/dL (8-26) 17 mg/dL (8-26) Creatinine 0.8 mg/dL (0.7-1.3) 0.8 mg/dL (0.7-1.3) Estimated GFR (Cockcroft-Gault) 98.0 98.0 BUN/Creatinine Ratio 19 (6-20) 21 (6-20) Glucose Level 105 mg/dL (70-99) 102 mg/dL (70-99) Calcium Level 8.4 mg/dL (8.5-10.1) 8.2 mg/dL (8.5-10.1) Total Bilirubin 0.4 mg/dL (0.2-1.0) 0.3 mg/dL (0.2-1.0) Aspartate Amino Transf (AST/SGOT) 15 U/L (15-37) 16 U/L (15-37) Alanine Aminotransferase (ALT/SGPT) 20 U/L (16-63) 22 U/L (16-63) Alkaline Phosphatase 87 U/L (46-116) 84 U/L (46-116) Total Protein 5.8 g/dL (6.4-8.2) 5.5 g/dL (6.4-8.2) Albumin 2.9 g/dL (3.4-5.0) 2.9 g/dL (3.4-5.0) Albumin/Globulin Ratio 1.0 (1.0-1.7) 1.1 (1.0-1.7) Laboratory Tests Test 02/28/20 05:10 White Blood Count 7.4 x10^3/uL (4.0-11.0) Red Blood Count 4.43 x10^6/uL (4.30-5.70) Hemoglobin 12.3 g/dL (13.0-17.5) Hematocrit 37.4 % (39.0-53.0) Mean Corpuscular Volume 84 fL (79-100) Mean Corpuscular Hemoglobin 28 pg (25-35) Mean Corpuscular Hemoglobin Concent 33 g/dL (31-37) Red Cell Distribution Width 16.1 % (11.5-14.5) Platelet Count 214 x10^3/uL (140-400) Sodium Level 138 mmol/L (136-145) Potassium Level 4.0 mmol/L (3.5-5.1) Chloride Level 103 mmol/L (98-107) Carbon Dioxide Level 31 mmol/L (21-32) Anion Gap 4 (6-14) Blood Urea Nitrogen 17 mg/dL (8-26) Creatinine 0.8 mg/dL (0.7-1.3) Estimated GFR (Cockcroft-Gault) 98.0 BUN/Creatinine Ratio 21 (6-20) Glucose Level 102 mg/dL (70-99) Calcium Level 8.2 mg/dL (8.5-10.1) Total Bilirubin 0.3 mg/dL (0.2-1.0) Aspartate Amino Transf (AST/SGOT) 16 U/L (15-37) Alanine Aminotransferase (ALT/SGPT) 22 U/L (16-63) Alkaline Phosphatase 84 U/L (46-116) Total Protein 5.5 g/dL (6.4-8.2) Albumin 2.9 g/dL (3.4-5.0) Albumin/Globulin Ratio 1.1 (1.0-1.7) Diagnosis: Diagnosis: 1- major depressive disorder, recurrent, moderate to severe 2- generalized anxiety disorder with panic attacks. 3- unspecified delirium, resolving. Assessment: He is a gentleman struggling with major depression and anxiety that precipitated with insomnia and chronic pain episodes. Additionally, he appears to be slightly confused likely resolving delirium. He is on multiple sedatives and hypnotics/pain medications. He is in agreement to simplify medication regimen of psychotropics. Low-dose antipsychotic including Seroquel would help with anxiety, resolution of delirium, and minimize use of benzodiazepines. Recommending: Minimize use of sedatives and hypnotics. DC Klonopin and continue low-dose Ativan for breakthrough anxiety and panic attacks. DC trazodone. And continue Remeron 15 mg nightly for insomnia, depression and anxiety. Increase Cymbalta to 60 mg daily for depression, anxiety, pain and to boost energy. Add Seroquel 25 mg twice daily for anxiety, panic attacks, delirium, and agitation/irritability. Psychoeducation provided. Supportive psychotherapy provided. Risks, benefits, alternatives of the treatment are discussed. He is in agreement with plan and accepted treatment plan. Thank you for involving inpatient care. ZEHRA NUÑEZ MD Feb 28, 2020 18:50
[2020-02-28 19:00] VITALS: BP 133/52
[2020-02-28] MEDS: QUEtiapine 25 MG TABLET. PO SCH (20:44)
[2020-02-28] MEDS: MIRTAZAPINE 15 MG TABLET PO SCH (20:44)
[2020-02-28] MEDS: ENOXAPARIN 40 MG/0.4 ML SYRINGE. SQ SCH (20:45)
[2020-02-28] MEDS: LIDOCAINE (700MG/PATCH) PATCH. TD SCH (20:46)
[2020-02-28 23:00] VITALS: BP 109/53
[2020-02-29] MEDS: traMADol 50 MG TABLET PO PRN (02:54)
[2020-02-29 03:00] VITALS: BP 120/79
[2020-02-29] MEDS: IV NORMAL SALINE 1000ML BAG 1,000 ML IV SCH (06:00)
[2020-02-29 07:00] VITALS: BP 103/65
--- NOTE | 2020-02-29 07:39 | NUR ---
Denies being suicidal. "I just need some sleep." Left hand saline lock dislodged and DC'd. 22g placed right hand x1 stick. Prefers to sit in chair and bend at the waist w/ his head in lap.
--- NOTE | 2020-02-29 07:43 | NUR ---
Right lens of glasses laying on table. "I broke my glasses." Placed in biohazard bag and taped to side table.
[2020-02-29] MEDS ORDERED: ASPIRIN CHEWABLE 81 MG TABLET. PO SCH (08:00)
[2020-02-29] MEDS: CHOLECALCIFEROL (VITAMIN D3) 1,000 UNIT TABLET PO SCH (08:56)
[2020-02-29] MEDS: GABAPENTIN 300 MG CAPSULE. PO SCH (08:57)
[2020-02-29] MEDS: MAGNESIUM OXIDE 400 MG TABLET PO SCH (08:57)
[2020-02-29] MEDS: FINASTERIDE 5 MG TABLET. PO SCH (08:57)
[2020-02-29] MEDS: TAMSULOSIN 0.4 MG CAP.ER.24H. PO SCH (08:57)
[2020-02-29] MEDS: QUEtiapine 25 MG TABLET. PO SCH (08:57)
[2020-02-29] MEDS: METHADONE 10 MG TABLET. PO SCH (08:58)
[2020-02-29] MEDS ORDERED: DULoxetine HCL 30 MG CAPSULE.DR PO SCH (09:00)
[2020-02-29] MEDS: PATCH REMOVAL. MC SCH (09:00)
--- NOTE | 2020-02-29 09:07 | PDOC ---
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 Medications: Inpatient Meds: Current Medications Medications (Trade) Dose Ordered Sig/Gabriela Start Time Stop Time Status Last Admin Dose Admin Acetaminophen (Tylenol) 650 mg PRN Q4HRS PRN 02/24/20 13:30 02/24/20 16:15 650 MG Al Hydroxide/Mg Hydroxide (Mylanta Plus Xs) 30 ml PRN DAILY PRN 02/24/20 13:30 Albuterol Sulfate (Ventolin Neb Soln) 2.5 mg PRN Q4HRS PRN 02/24/20 15:00 Albuterol/ Ipratropium (Duoneb) 3 ml Q4H 02/24/20 13:30 02/24/20 13:59 DC Aspirin (Jennifer Aspirin) 162.5 mg 1X ONCE 02/24/20 16:00 02/24/20 16:01 DC 02/24/20 16:55 162.5 MG Aspirin (Children'S Aspirin) 81 mg DAILYWBKFT 02/29/20 08:00 02/29/20 08:57 81 MG Ceftriaxone Sodium 0.2 gm/ Sodium Chloride 50 ml @ 100 mls/hr 1X ONCE 02/28/20 10:30 02/28/20 10:59 DC 02/28/20 10:16 100 MLS/HR Ceftriaxone Sodium 0.8 gm/ Sodium Chloride 50 ml @ 100 mls/hr 1X ONCE 02/28/20 11:00 02/28/20 11:29 DC 02/28/20 11:19 100 MLS/HR Ceftriaxone Sodium (Rocephin) 1 gm Q24H 02/29/20 11:00 Ciprofloxacin/ Dextrose 200 ml @ 200 mls/hr 1X ONCE 02/24/20 10:30 02/24/20 11:29 DC 02/24/20 11:04 200 MLS/HR Clonazepam (KlonoPIN) 0.5 mg PRN Q8HRS PRN 02/27/20 11:30 02/28/20 18:26 DC 02/28/20 05:27 0.5 MG Clonidine HCl (Catapres) 0.1 mg PRN Q6HRS PRN 02/24/20 13:30 02/24/20 22:55 0.1 MG Docusate Sodium (Colace) 100 mg PRN BID PRN 02/24/20 13:30 Duloxetine HCl (Cymbalta) 60 mg DAILY 02/29/20 09:00 02/29/20 08:56 60 MG Enoxaparin Sodium (Lovenox 40mg Syringe) 40 mg Q24H 02/24/20 21:00 02/28/20 20:45 40 MG Finasteride (Proscar) 5 mg DAILY 02/24/20 15:00 02/29/20 08:57 5 MG Gabapentin (Neurontin) 300 mg TID 02/24/20 21:00 02/29/20 08:57 300 MG Guaifenesin (Robitussin) 200 mg PRN Q4HRS PRN 02/24/20 13:30 Lidocaine (Lidoderm) 1 patch QHS 02/24/20 21:30 02/28/20 20:46 1 PATCH Lorazepam (Ativan) 0.5 mg PRN Q12HR PRN 02/25/20 11:30 02/28/20 08:41 0.5 MG Magnesium Oxide (Magnesium Oxide) 400 mg BID 02/24/20 21:00 02/29/20 08:57 400 MG Meropenem 1 gm/ Sodium Chloride 100 ml @ 200 mls/hr Q8HRS 02/24/20 14:00 UNV Meropenem 500 mg/ Sodium Chloride 50 ml @ 100 mls/hr Q6HRS 02/24/20 14:00 02/28/20 10:27 DC 02/28/20 05:27 100 MLS/HR Methadone HCl (Dolophine) 25 mg Q8HRS 02/26/20 19:00 02/29/20 08:58 25 MG Mirtazapine (Remeron) 15 mg QHS 02/24/20 21:00 02/28/20 20:44 15 MG Miscellaneous (Lidoderm Patch Removal) 1 ea DAILY 02/25/20 09:00 02/28/20 08:41 1 EA Naloxone HCl (Narcan) 0.4 mg 1X ONCE 02/24/20 09:00 02/24/20 09:06 DC 02/24/20 09:13 0.4 MG Non-Formulary Medication (Duloxetine Hcl (Cymbalta)) 1 cap DAILY 02/25/20 09:00 UNV Olanzapine (ZyPREXA IM) 10 mg 1X ONCE 02/24/20 20:00 02/24/20 20:01 DC 02/24/20 20:06 10 MG Olanzapine (ZyPREXA ZYDIS) 5 mg PRN BID PRN 02/24/20 20:00 02/26/20 13:24 5 MG Ondansetron HCl (Zofran) 4 mg PRN Q4HRS PRN 02/24/20 13:30 02/24/20 19:27 4 MG Phenazopyridine HCl (Pyridium) 200 mg PRN TID PRN 02/26/20 16:45 02/26/20 17:49 200 MG Quetiapine Fumarate (SEROquel) 25 mg BID 02/28/20 21:00 02/29/20 08:57 25 MG Sodium Monofluorophosphate (Fleet Adult) 133 ml PRN DAILY PRN 02/24/20 13:30 Sodium Chloride 1,000 ml @ 100 mls/hr Q10H 02/24/20 16:00 02/28/20 15:19 100 MLS/HR Sodium Chloride (Normal Saline Flush) 3 ml QSHIFT PRN 02/24/20 13:30 Tamsulosin HCl (Flomax) 0.4 mg DAILY 02/24/20 15:00 02/29/20 08:57 0.4 MG Tramadol HCl (Ultram) 50 mg 1X ONCE 02/27/20 03:00 02/27/20 03:01 DC 02/27/20 03:01 50 MG Trazodone HCl (Desyrel) 100 mg QHS 02/24/20 21:00 02/28/20 18:26 DC 02/27/20 21:37 100 MG Vitamin D (Vitamin D3) 2,000 unit DAILY 02/24/20 15:00 02/29/20 08:56 2,000 UNIT Objective: Assessment: Encephalopathy, etiology is unclear. MRI neg,improving Urinary tract infection. 02/23. E. coli FQ resistant, ceftriaxone sensitive Lactic acidosis - better Behavioral disorder. Hydrocephalus. Chronic low back pain s/p steroid injection, 02/15 Plan: Plan of Care dc Ceftriaxone after todays dose 1100 transition to keflex starting tomorrow for 4 more days Supportive care d/w INDIO CARY MD Feb 29, 2020 09:07
[2020-02-29 11:00] VITALS: BP 111/72
[2020-02-29] MEDS ORDERED: cefTRIAXone IV Push 1 GM VIAL. IVP SCH (11:00)
--- NOTE | 2020-02-29 11:14 | NUR ---
SW following. Discussed with RN, pt discharging to [facility] today at 1300. RN notified. Everything arranged and completed yesterday by community development planner, Erika Mo. No further SW needs.
[2020-02-29] MEDS ORDERED: CEPH-264 PO (12:05)
[2020-02-29] MEDS ORDERED: QUET25TA5 PO (12:08)
--- NOTE | 2020-02-29 12:11 | SNU/HH DC ---
DISCHARGE ORDERS DISCHARGE INFORMATION: DISCHARGE DATE: Feb 29, 2020 FINAL DIAGNOSIS Problems Medical Problems: (1) Altered mental status Status: Acute (2) UTI (urinary tract infection) Status: Acute CONDITION ON DISCHARGE: Stable CODE STATUS: Code Status: Full INTERMEDIATE: SNF STAY <30 DAYS: Yes POST DISCHARGE ORDERS: ACTIVITY ORDERS: Resume previous activity DIET AFTER DISCHARGE: Regular TREATMENT/EQUIPMENT ORDERS: Physical Therapy For: Evalulation/Treatment Occupational Therapy For: Evaluation/Treatment DISCHARGE MEDICATIONS: Home Meds Active Scripts Quetiapine Fumarate (SEROQUEL) 25 Mg Tablet, 1 TAB PO BID for AGITATION, #30 TAB 2 Refills Prov:CAESAR DINH MD 02/29/20 Cephalexin (KEFLEX) 500 Mg Capsule, 1 CAP PO TID for UTI for 4 Days, #12 CAP 0 Refills Prov:CAESAR DINH MD 02/29/20 Methadone Hcl (METHADONE HCL) 5 Mg Tablet, 25 MG PO TID for pain for 30 Days, #450 TAB Prov:CAESAR DINH MD 02/28/20 Ondansetron Hcl (ZOFRAN) 4 Mg Tablet, 4 MG PO PRN TID PRN for NAUSEA for 7 Days, #15 nausea/vomiting Prov:KRISS DURBIN DO 02/21/20 Reported Medications Duloxetine Hcl (CYMBALTA) 60 Mg Capsule.dr, 1 CAP PO DAILY for depression, #90 CAP 3 Refills 02/16/20 Tamsulosin Hcl (FLOMAX) 0.4 Mg Cap.er.24h, 0.4 MG PO DAILY for prostrate, TAB 02/16/20 Magnesium Oxide (Magnesium) 400 Mg Tablet, 1 TAB PO BID for supplment for 30 Days, #60 TAB 0 Refills NEEDED 02/16/20 Mirtazapine (MIRTAZAPINE) 15 Mg Tab.rapdis, 1 TAB PO QHS for depression for 30 Days, #30 TAB 0 Refills 02/15/20 Olanzapine (OLANZAPINE) 5 Mg Tablet, 1 TAB PO QHS for depression, #30 TAB 2 Refills 20 Finasteride (FINASTERIDE) 5 Mg Tablet, 1 TAB PO DAILY for prostrate, #30 TAB 11 Refills 02/16/20 Gabapentin (GABAPENTIN ) 300 Mg Capsule, 300 MG PO TID for NEUROGENIC PAIN, CAP 20 Cholecalciferol (Vitamin D3) (Vitamin D3) 2,000 Unit Tab.chew, 1 TAB PO DAILY for supplment for 30 Days, #30 TAB 0 Refills 02/16/20 Discontinued Reported Medications Ciprofloxacin Hcl (CIPROFLOXACIN HCL) 250 Mg Tablet, PO BID for uti, TAB 02/16/20 Discontinued Scripts Ciprofloxacin Hcl (CIPRO) 500 Mg Tablet, 1 TAB PO BID for 10 Days, #20 TAB 0 Refills Prov:KRISS DURBIN DO 02/21/20 Promethazine Hcl (PROMETHAZINE HCL) 25 Mg Supp.rect, 25 MG RC Q6H PRN for NAUSEA/VOMITING, #10 SUPP.RECT Prov:MARTA WERNER DO 11/13/19 CAESAR DINH MD Feb 29, 2020 12:11
--- NOTE | 2020-02-29 12:19 | DS ---
DATE OF DISCHARGE: 02/29/2020 HOSPITAL COURSE: The patient is a 64-year-old male patient, who was originally admitted with altered mental status, was found to have urinary tract infection and eventually his urine culture has grown more than 100,000 colony-forming units per mL of Escherichia coli. He has had an MRI and a CT scan of the head that were unremarkable; showed no acute intracranial abnormality, dilated posterolateral ventricle unchanged, chronic tiny left cerebellar infarct. The patient has completed his IV antibiotic in the form of ceftriaxone and will be discharged to halfway facility as he continued to be very debilitated and deconditioned and will require physical and occupational therapy. PHYSICAL EXAMINATION: GENERAL: When I saw him today, he was sitting comfortably in his recliner, in no apparent distress. He is definitely more awake, alert in the morning, responding appropriately. He was somewhat pale, cachectic, but no jaundice, cyanosis or thyromegaly. No jugular venous distention. No lower limb edema. VITAL SIGNS: His heart rate was 79, blood pressure 111/72, temperature was 97.8, respiratory rate was 18 and oxygen saturation was 94% on room air. HEAD, EYES, EARS, NOSE AND THROAT: Showed normocephalic, atraumatic. NECK: Supple. HEART: Showed normal first and second heart sounds. No gallop, rub or murmur. CHEST: Clear to auscultation. No crepitation or rhonchi. ABDOMEN: Distended, soft, nontender. No guarding or rigidity. No organomegaly. All hernial orifice intact. Bowel sounds normal. NEUROLOGIC: He was awake, alert, responding appropriately. All cranial nerves are intact. He ambulates with a walker with a standby assist. His intake over the last 24 hours and output are incompletely recorded. LABORATORY DATA: Showed a serum sodium 138, potassium 4, chloride 103, bicarbonate 31, anion gap of 4, BUN 17, creatinine 0.8. Estimated GFR was 98 mL per minute. His glucose was 102, calcium was 8.2. Total bilirubin, AST, ALT, alkaline phosphatase were normal. Total protein was 5.5, albumin was 2.9. His white cell count was 7400; hemoglobin 12; hematocrit 37; MCV 84 and platelet count 214,000. FINAL DISCHARGE DIAGNOSES: 1. Encephalopathy, probably multifactorial. CT scan and MRI were negative. 2. Urinary tract infection with growth of more than 100,000 colony-forming units per mL of Escherichia coli sensitive to meropenem. 3. Sepsis with lactic acidosis, resolved. 4. Chronic low back pain, status post spinal epidural steroid injection. 5. Depression and suicidal ideation before, for which he was admitted to senior behavioral unit. CAESAR DINH MD DR: KENNY/heidi JOB#: [id number] / [id number]
--- NOTE | 2020-02-29 13:22 | NUR ---
Pt discharged to [facility] facility by w/jadyn stark. Home medications given with 2 lighters with discharge papers. Wallet/cell phone given to patient by security.
--- NOTE | 2020-02-29 13:25 | NUR ---
Report called to [facility] and spoke with Yue DA SILVA.
--- NOTE | 2020-02-29 13:36 | PDOC ---
F/U PHYSCH PROG NOTE Subjective: Gentleman is seen for follow-up. Progress is reviewed with nursing staff. No major events reported overnight. Upon interview, he appears more cooperative and interactive. He states, he is able to sleep a lot better last night compared to previous nights. States, seems like Seroquel is working. States, he feels t hat he is more alert and cognizant with the situation. Also, cognitively feeling stronger. He is tolerating medication changes denies adverse drug reaction. He is satisfied with current medication regimen. Denies suicidal or homicidal thoughts intent or plan. Denies auditory or visual hallucinations. No evidence of andre or hypomania. No violent intent or irritability noted. He is being discharged to rehab. Objective: Psychiatric review of system is negative for suicidal or homicidal thoughts, auditory or visual hallucinations, andre or hypomania. Vital Signs: Vital Signs Date Time Temp Pulse Resp B/P (MAP) Pulse Ox O2 Delivery O2 Flow Rate FiO2 02/29/20 11:00 97.8 79 18 111/72 (85) 94 Room Air 97.8 Medications: Current Medications Medications (Trade) Dose Ordered Sig/Gabriela Start Time Stop Time Status Last Admin Dose Admin Acetaminophen (Tylenol) 650 mg PRN Q4HRS PRN 02/24/20 13:30 02/24/20 16:15 650 MG Al Hydroxide/Mg Hydroxide (Mylanta Plus Xs) 30 ml PRN DAILY PRN 02/24/20 13:30 Albuterol Sulfate (Ventolin Neb Soln) 2.5 mg PRN Q4HRS PRN 02/24/20 15:00 Albuterol/ Ipratropium (Duoneb) 3 ml Q4H 02/24/20 13:30 02/24/20 13:59 DC Aspirin (Jennifer Aspirin) 162.5 mg 1X ONCE 02/24/20 16:00 02/24/20 16:01 DC 02/24/20 16:55 162.5 MG Aspirin (Children'S Aspirin) 81 mg DAILYWBKFT 02/29/20 08:00 02/29/20 08:57 81 MG Ceftriaxone Sodium 0.2 gm/ Sodium Chloride 50 ml @ 100 mls/hr 1X ONCE 02/28/20 10:30 02/28/20 10:59 DC 02/28/20 10:16 100 MLS/HR Ceftriaxone Sodium 0.8 gm/ Sodium Chloride 50 ml @ 100 mls/hr 1X ONCE 02/28/20 11:00 02/28/20 11:29 DC 02/28/20 11:19 100 MLS/HR Ceftriaxone Sodium (Rocephin) 1 gm Q24H 02/29/20 11:00 02/29/20 12:11 1 GM Ciprofloxacin/ Dextrose 200 ml @ 200 mls/hr 1X ONCE 02/24/20 10:30 02/24/20 11:29 DC 02/24/20 11:04 200 MLS/HR Clonazepam (KlonoPIN) 0.5 mg PRN Q8HRS PRN 02/27/20 11:30 02/28/20 18:26 DC 02/28/20 05:27 0.5 MG Clonidine HCl (Catapres) 0.1 mg PRN Q6HRS PRN 02/24/20 13:30 02/24/20 22:55 0.1 MG Docusate Sodium (Colace) 100 mg PRN BID PRN 02/24/20 13:30 Duloxetine HCl (Cymbalta) 60 mg DAILY 02/29/20 09:00 02/29/20 08:56 60 MG Enoxaparin Sodium (Lovenox 40mg Syringe) 40 mg Q24H 02/24/20 21:00 02/28/20 20:45 40 MG Finasteride (Proscar) 5 mg DAILY 02/24/20 15:00 02/29/20 08:57 5 MG Gabapentin (Neurontin) 300 mg TID 02/24/20 21:00 02/29/20 08:57 300 MG Guaifenesin (Robitussin) 200 mg PRN Q4HRS PRN 02/24/20 13:30 Lactobacillus Rhamnosus (Culturelle) 1 cap BID 02/29/20 21:00 Lidocaine (Lidoderm) 1 patch QHS 02/24/20 21:30 02/28/20 20:46 1 PATCH Lorazepam (Ativan) 0.5 mg PRN Q12HR PRN 02/25/20 11:30 02/28/20 08:41 0.5 MG Magnesium Oxide (Magnesium Oxide) 400 mg BID 02/24/20 21:00 02/29/20 08:57 400 MG Meropenem 1 gm/ Sodium Chloride 100 ml @ 200 mls/hr Q8HRS 02/24/20 14:00 UNV Meropenem 500 mg/ Sodium Chloride 50 ml @ 100 mls/hr Q6HRS 02/24/20 14:00 02/28/20 10:27 DC 02/28/20 05:27 100 MLS/HR Methadone HCl (Dolophine) 25 mg Q8HRS 02/26/20 19:00 02/29/20 08:58 25 MG Mirtazapine (Remeron) 15 mg QHS 02/24/20 21:00 02/28/20 20:44 15 MG Miscellaneous (Lidoderm Patch Removal) 1 ea DAILY 02/25/20 09:00 02/29/20 09:00 1 EA Naloxone HCl (Narcan) 0.4 mg 1X ONCE 02/24/20 09:00 02/24/20 09:06 DC 02/24/20 09:13 0.4 MG Non-Formulary Medication (Duloxetine Hcl (Cymbalta)) 1 cap DAILY 02/25/20 09:00 UNV Olanzapine (ZyPREXA IM) 10 mg 1X ONCE 02/24/20 20:00 02/24/20 20:01 DC 02/24/20 20:06 10 MG Olanzapine (ZyPREXA ZYDIS) 5 mg PRN BID PRN 02/24/20 20:00 02/26/20 13:24 5 MG Ondansetron HCl (Zofran) 4 mg PRN Q4HRS PRN 02/24/20 13:30 02/24/20 19:27 4 MG Phenazopyridine HCl (Pyridium) 200 mg PRN TID PRN 02/26/20 16:45 02/26/20 17:49 200 MG Quetiapine Fumarate (SEROquel) 25 mg BID 02/28/20 21:00 02/29/20 08:57 25 MG Sodium Monofluorophosphate (Fleet Adult) 133 ml PRN DAILY PRN 02/24/20 13:30 Sodium Chloride 1,000 ml @ 100 mls/hr Q10H 02/24/20 16:00 02/28/20 15:19 100 MLS/HR Sodium Chloride (Normal Saline Flush) 3 ml QSHIFT PRN 02/24/20 13:30 Tamsulosin HCl (Flomax) 0.4 mg DAILY 02/24/20 15:00 02/29/20 08:57 0.4 MG Tramadol HCl (Ultram) 50 mg 1X ONCE 02/27/20 03:00 02/27/20 03:01 DC 02/27/20 03:01 50 MG Trazodone HCl (Desyrel) 100 mg QHS 02/24/20 21:00 02/28/20 18:26 DC 02/27/20 21:37 100 MG Vitamin D (Vitamin D3) 2,000 unit DAILY 02/24/20 15:00 02/29/20 08:56 2,000 UNIT Physical Exam: Mental Status Exam: Young gentleman appears stated age, Cooperative and interactive. Speech is with regular rate and rhythm, normal tone and volume. Thought processes mostly goal-directed. Denies auditory or visual hallucinations. No abnormal perceptions noted. Denies suicidal or homicidal thoughts. Mood is improving. Affect is euthymic. Insight is good. Impulse control is good. Judgment is good. Attention span and concentration are improving. Physical Exam: Refer to Physician's note. BLADE BONER: No focal deficit MSK: No EPS, TDK, or abnormal involuntary movements Diagnosis: 1- major depressive disorder, recurrent, moderate to severe 2- generalized anxiety disorder with panic attacks. 3- unspecified delirium, resolving. Assessment: Assessment: He is a gentleman struggling with major depression and anxiety that precipitated with insomnia and chronic pain episodes. He demonstrates improvement in mood and orientation compared to since hospitalization began. He is tolerating medication changes and denying adverse drug reactions. Recommending: Minimize use of sedatives and hypnotics. Continue low-dose Ativan for breakthrough anxiety and panic attacks. Continue Remeron 15 mg nightly for insomnia, depression and anxiety. Continue Cymbalta to 60 mg daily for depression, anxiety, pain and to boost energy. Continue Seroquel 25 mg twice daily for anxiety, panic attacks, delirium, and agitation/irritability. Psychoeducation provided. Supportive psychotherapy provided. Risks, benefits, alternatives of the treatment are discussed. He is in agreement with plan and accepted treatment plan. Thank you for involving inpatient care. ZEHRA NUÑEZ MD Feb 29, 2020 13:36
--- NOTE | 2020-02-29 14:08 | PDOC ---
PROGRESS NOTES Assessment Assessment Metabolic encephalopathy. UTI. Cognitive impairment. Brain atrophy. Behavior problems. No evidence of acute CVA this time. RECOMMENDATIONS/PLAN: Treat UTI per floor team. Treat medical diseases. FU with PCP. HISTORY OF THE PRESENT ILLNESS: This is a 64-year-old patient with similar past medical history of intermittent MS changes was found with altered mental status to be brought to the ER of [facility]. The patient was reportedly had similar episodes several times in the past. He was found lying in the sun in the parking lot and EMS usually talked to him and he went inside, but he did not respond this time so he was brought in. His initial assessments were WNL in the ER, but his US test was abnormal and his temperature was 99.1 . His MS changes then improved, but he still has some repeatedly movements in his LE as stating try to fine comfort position. 02/29/20: MS changes resolved. Past Medical History Anxiety, scoliosis,CHRONIC BACK PAIN PAST SURGERY HISTORY: Bladder surgery. Family History High Cholestrol, COPD Social History Smoke: <1 pack per day ALCOHOL: none Drugs: None ALLERGY: Unknown MEDICATIONS: Refer to MAR REVIEW OF SYSTEMS: Constitutional: No malnutrition, weight loss, cachexia. Head: No traumatic brain or head injury. Skin: No edema, or rash. Ear: No infection. Eyes: No vision loss or color blindness. Nose: No bleeding or purulent discharges. Hearing: No hearing decrease. Neck: No injury. Cardiac: HTN. Pulmonary: Smoking. GI: No GI ulcer, GI bleeding. Urinary/genital: UTI. Endocrinologic: No cousin face, craniofacial dysmorphism, polydactyly. Skeletomuscular: No muscular atrophy, deformity. Neurological: see HP. Psychiatric: Denies drug use/abuse. Otherwise, not [id number] review of systems. PHYSICAL EXAMINATION: General appearance is in no acute distress. HEENT: Normocephalic and nontraumatic. Eyes, nose, ears, and throat are unremarkable. Neck is supple. No lymphadenopathy. No crepitus. Cardiovascular: S1, S2, regular rate and rhythm. Pulmonary: Clear to auscultation bilaterally. Abdomen: Bowel sounds are positive. Extremities: No rash, lesions, or edema. No restriction of range of motion NEUROLOGICAL EXAMINATION: Awake. Not oriented to time, place and person. PERRL. EOMI. CN: no focal findings. Muscle tone: within normal. Muscle strength: 5 DTR: 2 Plantar reflex: Flexor response bilaterally Gait: not examined while in chair. Sensory exam: no abnormal findings. No cerebellar signs elicited. F-T-N test fine. Objective Objective Vital Signs Date Time Temp Pulse Resp B/P (MAP) Pulse Ox O2 Delivery O2 Flow Rate FiO2 02/29/20 11:00 97.8 79 18 111/72 (85) 94 Room Air 97.8 Intake and Output 02/29/20 07:00 Intake Total 900 ml Output Total 1400 ml Balance -500 ml Intake Oral 900 ml Output Urine Total 1400 ml # Voids 1 Vitals Signs Vitals VS - Last 72 Hours, by Label Date Time Temp Pulse Resp B/P (MAP) Pulse Ox O2 Delivery O2 Flow Rate FiO2 02/29/20 11:00 97.8 79 18 111/72 (85) 94 Room Air 97.8 02/29/20 08:05 Room Air 02/29/20 07:00 97.8 67 18 103/65 (78) 93 Room Air 97.8 02/29/20 04:00 22 02/29/20 03:00 97.9 68 18 120/79 (93) 96 Room Air 97.9 02/29/20 02:54 20 Room Air 02/28/20 23:00 98.0 64 18 109/53 (71) 96 Room Air 98.0 02/28/20 19:00 97.9 75 18 133/52 (79) 97 Room Air 97.9 02/28/20 14:38 97.5 100 20 116/63 (80) 94 Room Air 97.5 02/28/20 10:45 98.3 60 18 108/73 (85) 93 Room Air 98.3 02/28/20 07:20 Room Air 02/28/20 07:00 98.1 68 20 96/54 (68) 94 Room Air 98.1 Laboratory Laboratory Microbiology 02/24/20 Urine Culture - Final, Complete 02/24/20 Urine Culture Result 1 (BETO) - Final, Complete 02/24/20 Antimicrobic Susceptibility - Final, Complete 02/24/20 Blood Culture - Preliminary, Resulted NO GROWTH AFTER 4 DAYS Medication Medications Current Medications Aspirin (Children'S Aspirin) 81 mg DAILYWBKFT PO Last administered on 02/29/20at 08:57; Start 02/29/20 at 08:00; Stop 02/29/20 at 13:41; Status DC Ceftriaxone Sodium (Rocephin) 1 gm Q24H IVP Last administered on 02/29/20at 12:11; Start 02/29/20 at 11:00; Stop 02/29/20 at 13:41; Status DC Duloxetine HCl (Cymbalta) 60 mg DAILY PO Last administered on 02/29/20at 08:56; Start 02/29/20 at 09:00; Stop 02/29/20 at 13:41; Status DC Lactobacillus Rhamnosus (Culturelle) 1 cap BID PO ; Start 02/29/20 at 21:00; Stop 02/29/20 at 13:41; Status DC Quetiapine Fumarate (SEROquel) 25 mg BID PO Last administered on 02/29/20at 08:57; Start 02/28/20 at 21:00; Stop 02/29/20 at 13:41; Status DC Comment Review of Relevant I have reviewed the following items willem (where applicable) has been applied. HAN FELTON MD Feb 29, 2020 14:08
[2020-02-29] MEDS ORDERED: LACTOBACILLUS RHAMNOSUS GG 1 CAPSULE. PO SCH (21:00)
== END 2020-02-29 13:22 | DRG 871 ==
LOC: ER 07:45 → ED HOLD 11:05 → 2 SOUTH 14:34 → 4 NORTH 02-26 05:00
PROVIDERS: ADMIT Internal Medicine; ATTEND Internal Medicine
PROC: 3E0U33Z Introduction of Anti-inflammatory into Joints, Percutaneous Approach (ICD-10-PCS; principal; 2020-02-24)
PROC: 3E0U3BZ Introduction of Anesthetic Agent into Joints, Percutaneous Approach (ICD-10-PCS; 2020-02-24)
DX: A41.9 Sepsis, unspecified organism (principal); G93.41 Metabolic encephalopathy; N39.0 Urinary tract infection, site not specified; G91.9 Hydrocephalus, unspecified; J98.11 Atelectasis; R45.851 Suicidal ideations; B96.20 Unspecified Escherichia coli [E. coli] as the cause of diseases classified elsewhere; F17.210 Nicotine dependence, cigarettes, uncomplicated; F32.9 Major depressive disorder, single episode, unspecified; F41.0 Panic disorder [episodic paroxysmal anxiety]; F91.9 Conduct disorder, unspecified; G31.9 Degenerative disease of nervous system, unspecified; G47.00 Insomnia, unspecified; G89.29 Other chronic pain; G93.89 Other specified disorders of brain; M41.9 Scoliosis, unspecified; M51.16 Intervertebral disc disorders with radiculopathy, lumbar region; Z79.899 Other long term (current) drug therapy; Z82.5 Family history of asthma and other chronic lower respiratory diseases; Z88.0 Allergy status to penicillin; Z88.2 Allergy status to sulfonamides; Z88.7 Allergy status to serum and vaccine; Z88.8 Allergy status to other drugs, medicaments and biological substances
CPT/HCPCS: 36415; 70450; 70551; 71045; 80053; 80061; 80307; 81001; 82140; 82607; 82962; 83605; 84145; 84443; 85025; 85027; 85651; 87040; 87086; 87186; 93005; 99406; J0696; J0744; J1650; J2185; J2310; J2405; J3490; J7030; 97535; G0378

== ENCOUNTER → 2020-04-10 | Outpatient (CLI) | payer MEDICARE ==
[~2020-04-10] MED LIST changes: +CEFD300C PO; +CLONAZEPAM1 MG PO; +IOHEXOL 180 MG/ML 10 ML VIAL. ONE; +METH5TAB2 PO; +PHEN-444 PO; +QUET25TA5 PO; +methylPREDNISolone ACETATE 40 MG/ML VIAL. ONE; +methylPREDNISolone ACETATE 80 MG/ML VIAL. ONE
--- NOTE | 2020-04-10 09:25 | PAIN ---
DATE OF SERVICE: 04/10/2020 PROGRESS NOTE FOR PAIN CLINIC DIAGNOSES: Lumbar radiculopathy with lumbar degenerative disk disease. HISTORY OF PRESENT ILLNESS: The patient is a 64-year-old male who returns for followup status post lumbar epidural steroid injection x 1. The patient reports no significant decrease in pain, but still significant pain in the low back and bilateral lower extremities, posterior gluteus, posterolateral thigh, lateral anterior thighs, medial thighs, posterior calves, anterior calves, medial calves from the knees down, especially. The patient reports it is aching, sharp, shooting across the low back, aching and dull, cramping and stabbing in the legs with tingling and burning in the feet, radiating, becoming more constant, more unbearable, more severe, becoming more difficult to walk secondary to the pain. He is using a walker but still feels fairly unsteady. The patient reports he is still walking about 1/4 of a mile 4 times a day, but not all continuously. The patient reports he is still maintaining his exercise, maintains sleep which generally awakens him about maybe once or twice, but generally sleeps about every 8 hours without significant interruption. The patient rates his pain as a 10 on a scale of 10 at its worst over the past week, 7 on average, 5 at its least and is a 7 today. The patient reports no new motor or sensory deficits. He did have a urinary tract infection, which was treated in the recent past as well, but has now recovered. The patient reports no other changes, no bowel or bladder incontinence or other complaints. PHYSICAL EXAMINATION: VITAL SIGNS: The patient's blood pressure is 137/86, pulse 77, respirations 18, temperature 97.8 degrees Fahrenheit, height is 5 feet 8 inches, and weight is 163 pounds. GENERAL: The patient is awake, alert, oriented, appropriate, very pleasant demeanor. HEENT: Shows normocephalic, atraumatic. Extraocular movements are intact and symmetrical. Oral cavity: Mucous membranes moist and pink. Dentition is intact. NECK: Shows anterior throat supple without palpable lymphadenopathy noted. Swallow reflex symmetrical. CHEST: Shows normal on inspection. Breath sounds clear to auscultation bilaterally. HEART: Shows S1, S2 clear. No murmurs auscultated. ABDOMEN: Soft, nontender, and nondistenced. No palpable organomegaly is noted. No rebound or guarding demonstrated. BACK: Shows spine grossly in the midline. Slight increase in thoracic kyphosis and some flattening of lumbar lordotic curvature with some rightward scoliosis noted in the lumbar distribution. Lumbar paraspinous muscle shows symmetrical on inspection, on palpation shows some moderate tenderness diffusely and had been only with deeper palpation. No specific trigger points, no radiation of pain. The patient has good rotational motion of lumbar spine, both laterally as well as extension and flexion without significant increase in pain. EXTREMITIES: Lower extremities show deep tendon reflexes at 1+ in the patellar and tendo calcaneus tendons. Motor exam is 4 on a scale of 5 on the right, 5/5 on the left. Peripheral pulses are 1+ posterior tibia. No peripheral edema bilaterally. Options were discussed with the patient. The patient's old chart was reviewed, his current medication regimen updated. Current review of systems updated today as well. We will proceed with a second in the series of lumbar epidural steroid injection today with fluoroscopic guidance. Risks were again discussed including, but not limited to bleeding, infection, possibility of epidural hematoma, subsequent neurological compromise, dural puncture, headaches, spinal cord and/or nerve damage, side effects of steroid medication and poor results regarding pain control. The patient understands and wished to proceed. The patient will return to clinic in approximately 2 weeks for followup. She was counseled on return appointment, activity level and side effects to be aware of. DIAGNOSIS: Lumbar radiculopathy with lumbar degenerative disk disease. PROCEDURE: Lumbar epidural steroid injection, translaminar approach at the L4-5 level using C-arm fluoroscopic guidance under sterile prep and drape using local anesthetic. MEDICATIONS INJECTED: A total of 120 mg Depo-Medrol plus 10 mL preservative-free normal saline and 2 mL of contrast. CONDITION AT DISCHARGE: Stable. The patient tolerated the procedure well, had no complications. WILI AMADO MD DR: [email or web address]/heidi JOB#: [id number] / [id number]
== END ==
LOC: PNCL 07:59
PROVIDERS: ATTEND Anesthesiology
DX: M51.16 Intervertebral disc disorders with radiculopathy, lumbar region (principal)
CPT/HCPCS: 62323; J1030; J1040; Q9965

== ENCOUNTER 2020-05-06 10:11 | Emergency (ER) | payer MEDICARE ==
[~2020-05-06] VITALS: Ht 172.7 cm; Wt 90.0 kg
[~2020-05-06 10:11] MED LIST changes: -IOHEXOL 180 MG/ML 10 ML VIAL. ONE; +Nicotine 21MG TD; +ROPI0.25 PO; -methylPREDNISolone ACETATE 40 MG/ML VIAL. ONE; -methylPREDNISolone ACETATE 80 MG/ML VIAL. ONE
[2020-05-06 11:38] LABS: BASO % 1 % (0-3); EOS # 0.1 x10^3/uL (0.0-0.7); EOS % 2 % (0-3); HEMATOCRIT 38.6 % (39.0-53.0); LYMPH # 1.2 x10^3/uL (1.0-4.8); LYMPH % 23 % (24-48); MEAN CORPUSCULAR HEMOGLOBIN 29 pg (25-35); MEAN CORPUSCULAR HGB CONC 34 g/dL (31-37); MEAN CORPUSCULAR VOLUME 85 fL (79-100); MONO # 0.5 x10^3/uL (0.0-1.1); MONO % 9 % (0-9); NEUT # 3.6 x10^3/uL (1.8-7.7); NEUT % 66 % (31-73); PLATELET COUNT 185 x10^3/uL (140-400); RED BLOOD COUNT 4.57 x10^6/uL (4.30-5.70); RED CELL DISTRIBUTION WIDTH 15.7 % (11.5-14.5); WHITE BLOOD COUNT 5.4 x10^3/uL (4.0-11.0)
[2020-05-06 11:39] LABS: BILIRUBIN,URINE NEGATIVE (NEG); CLARITY,URINE CLEAR; COLOR,URINE YELLOW; NITRITE,URINE NEGATIVE (NEG); PH,URINE 8.5 (<5.0-8.0); PROTEIN,URINE NEGATIVE (NEG-TRACE); UROBILINOGEN,URINE 0.2 mg/dL (0.2 mg/dL)
[2020-05-06] MEDS ORDERED: ONDANSETRON PF 4 MG/2 ML VIAL. ONE (11:40)
[2020-05-06 11:45] LABS: SQUAMOUS EPITHELIAL CELL,UR FEW /LPF
[2020-05-06 11:45] LABS: CALCIUM 8.9 mg/dL (8.5-10.1); CREATININE 0.9 mg/dL (0.7-1.3); GFR 85.5; POTASSIUM 4.1 mmol/L (3.5-5.1)
[2020-05-06 11:46] LABS: AMORPHOUS SEDIMENT,UR PRESENT /HPF
[2020-05-06 11:47] LABS: PROTHROMBIN TIME PATIENT 13.4 SEC (11.7-14.0)
[2020-05-06 11:51] LABS: ALBUMIN 3.6 g/dL (3.4-5.0); ALBUMIN/GLOBULIN RATIO 1.3 (1.0-1.7); TOTAL PROTEIN 6.3 g/dL (6.4-8.2)
[2020-05-06 11:51] LABS: BACTERIA,URINE MODERATE /HPF (0-FEW)
--- NOTE | 2020-05-06 13:20 | RAD ---
EXAM: Frontal view of the chest, AP views of the abdomen in upright and supine positions. CLINICAL INDICATION: nausea, vomiting COMPARISON: None. FINDINGS and IMPRESSION: The heart is not enlarged. Mediastinal and hilar contours are normal. No focal parenchymal airspace opacity. No pleural effusion or pneumothorax. No abnormal small or large bowel dilatation. Moderate to large volume colonic stool content. No abnormal soft tissue mass effect. No suspicious calcifications are seen. No free intraperitoneal gas. Small hiatal hernia. Electronically signed by: Remberto Donaldson MD (05/06/2020 1:17 PM) [email or web address]
--- NOTE | 2020-05-06 13:38 | PHYS DOC ---
Past Medical History Past Medical History: Anxiety, Other Additional Past Medical Histor: scoliosis,CHRONIC BACK PAIN Past Surgical History: Other Additional Past Surgical Histo: bladder Smoking Status: Current Every Day Smoker Alcohol Use: None Drug Use: None General Adult EDM: Chief Complaint: NAUSEA/VOMITING/DIARRHA HPI: HPI: Patient is a 64 year old male who was brought here by EMS from home due to nausea vomiting and cramping. Patient has a history of chronic back pain, anxiety. Patient is on methadone. Patient denies drinking alcohol. Patient denies suicidal ideation. Patient was admitted here last month for UTI. Patient denies any cough or fever, no abdominal pain, no chest pain, no cough. Patient complained of cramping in his legs. Review of Systems: Review of Systems: Constitutional: Denies fever or chills. [] Eyes: Denies change in visual acuity. [] HENT: Denies nasal congestion or sore throat. [] Respiratory: Denies cough or shortness of breath. [] Cardiovascular: Denies chest pain or edema. [] GI: Denies abdominal pain , POSITIVE FOR nausea, vomiting, [employer] WORK[employer] diarrhea. [] : Denies dysuria. [] Musculoskeletal: Denies back pain or joint pain. [] Integument: Denies rash. [] Neurologic: Denies headache, focal weakness or sensory changes. [] Endocrine: Denies polyuria or polydipsia. [] Lymphatic: Denies swollen glands. [] Psychiatric: Denies depression or anxiety. [] Heart Score: Risk Factors: Risk Factors: DM, Current or recent (<one month) smoker, HTN, HLP, family history of CAD, obesity. Risk Scores: Score 0 - 3: 2.5% MACE over next 6 weeks - Discharge Home Score 4 - 6: 20.3% MACE over next 6 weeks - Admit for Clinical Observation Score 7 - 10: 72.7% MACE over next 6 weeks - Early Invasive Strategies Current Medications: Current Medications Medications (Trade) Dose Ordered Sig/Gabriela Start Time Stop Time Status Last Admin Dose Admin Ondansetron HCl (Zofran) 4 mg STK-MED ONCE 05/06/20 11:40 05/06/20 11:40 DC Allergies: Allergies: Allergies Coded Allergies Type Severity Reaction Last Updated Verified Penicillins Allergy Severe anaphylactic 02/24/20 Yes Sulfa (Sulfonamide Antibiotics) Allergy Severe anaphylactic 11/13/19 Yes Influenza Virus Vaccines Allergy Intermediate 01/29/20 Yes Physical Exam: PE: Constitutional: Well developed, well nourished, no acute distress, non-toxic appearance. Patient is trembling and shaking. HENT: Normocephalic, atraumatic, bilateral external ears normal, oropharynx IS DRIED, no oral exudates, nose normal. [] Eyes: PERRLA, EOMI, conjunctiva normal, no discharge. [] Neck: Normal range of motion, no tenderness, supple, no stridor. [] Cardiovascular:Heart rate regular rhythm, no murmur [] Lungs & Thorax: Bilateral breath sounds clear to auscultation [] Abdomen: Bowel sounds normal, soft, no tenderness, no masses, no pulsatile masses. [] Skin: Warm, dry, no erythema, no rash. [] Back: No tenderness, no CVA tenderness. [] Extremities: No tenderness, no cyanosis, no clubbing, ROM intact, no edema. [] Neurologic: Alert and oriented X 3, normal motor function, normal sensory function, no focal deficits noted. [] Psychologic: Affect normal, judgement normal, mood normal. [] Current Patient Data: Labs: Laboratory Tests Test 05/06/20 10:25 05/06/20 11:20 White Blood Count 5.4 x10^3/uL (4.0-11.0) Red Blood Count 4.57 x10^6/uL (4.30-5.70) Hemoglobin 13.0 g/dL (13.0-17.5) Hematocrit 38.6 % (39.0-53.0) L Mean Corpuscular Volume 85 fL (79-100) Mean Corpuscular Hemoglobin 29 pg (25-35) Mean Corpuscular Hemoglobin Concent 34 g/dL (31-37) Red Cell Distribution Width 15.7 % (11.5-14.5) H Platelet Count 185 x10^3/uL (140-400) Neutrophils (%) (Auto) 66 % (31-73) Lymphocytes (%) (Auto) 23 % (24-48) L Monocytes (%) (Auto) 9 % (0-9) Eosinophils (%) (Auto) 2 % (0-3) Basophils (%) (Auto) 1 % (0-3) Neutrophils # (Auto) 3.6 x10^3/uL (1.8-7.7) Lymphocytes # (Auto) 1.2 x10^3/uL (1.0-4.8) Monocytes # (Auto) 0.5 x10^3/uL (0.0-1.1) Eosinophils # (Auto) 0.1 x10^3/uL (0.0-0.7) Basophils # (Auto) 0.0 x10^3/uL (0.0-0.2) Prothrombin Time 13.4 SEC (11.7-14.0) Prothrombin Time INR 1.1 (0.8-1.1) Activated Partial Thromboplast Time 29 SEC (24-38) Sodium Level 140 mmol/L (136-145) Potassium Level 4.1 mmol/L (3.5-5.1) Chloride Level 101 mmol/L (98-107) Carbon Dioxide Level 29 mmol/L (21-32) Anion Gap 10 (6-14) Blood Urea Nitrogen 17 mg/dL (8-26) Creatinine 0.9 mg/dL (0.7-1.3) Estimated GFR (Cockcroft-Gault) 85.5 BUN/Creatinine Ratio 19 (6-20) Glucose Level 92 mg/dL (70-99) Calcium Level 8.9 mg/dL (8.5-10.1) Magnesium Level 1.8 mg/dL (1.8-2.4) Total Bilirubin 1.0 mg/dL (0.2-1.0) Aspartate Amino Transferase (AST) 31 U/L (15-37) Alanine Aminotransferase (ALT) 32 U/L (16-63) Alkaline Phosphatase 92 U/L (46-116) Troponin I Quantitative < 0.017 ng/mL (0.000-0.055) Total Protein 6.3 g/dL (6.4-8.2) L Albumin 3.6 g/dL (3.4-5.0) Albumin/Globulin Ratio 1.3 (1.0-1.7) Lipase 56 U/L (73-393) L Ethyl Alcohol Level < 10 mg/dL (0-10) Urine Collection Type Unknown Urine Color Yellow Urine Clarity Clear Urine pH 8.5 (<5.0-8.0) Urine Specific [place] 1.015 (1.000-1.030) Urine Protein Negative mg/dL (NEG-TRACE) Urine Glucose (UA) Negative mg/dL (NEG) Urine Ketones (Stick) Negative mg/dL (NEG) Urine Blood Negative (NEG) Urine Nitrite Negative (NEG) Urine Bilirubin Negative (NEG) Urine Urobilinogen Dipstick 0.2 mg/dL (0.2 mg/dL) Urine Leukocyte Esterase Trace (NEG) Urine RBC 1-2 /HPF (0-2) Urine WBC 5-10 /HPF (0-4) Urine Squamous Epithelial Cells Few /LPF Urine Amorphous Sediment Present /HPF Urine Bacteria Moderate /HPF (0-FEW) Urine Mucus Slight /LPF Laboratory Tests 05/06/20 10:25 Laboratory Tests 05/06/20 10:25 Vital Signs: Vital Signs Date Time Temp Pulse Resp B/P (MAP) Pulse Ox O2 Delivery O2 Flow Rate FiO2 05/06/20 12:00 68 16 133/61 (85 94 Room Air 05/06/20 10:11 99.5 99.5 EKG: EKG: [] Radiology/Procedures: Radiology/Procedures: [][facility] [address] [place] [address] IMAGING REPORT Signed PATIENT: MERLE SONG JACCOUNT: [id number] : 1955 LOCATION: ER AGE: 64 SEX: M EXAM STATUS: REG ER ORD. PHYSICIAN: ISRAEL ECHEVERRIA DO REASON: nausea, vomiting PROCEDURE: ACUTE ABDOMEN SERIES EXAM: Frontal view of the chest, AP views of the abdomen in upright and supine positions. CLINICAL INDICATION: nausea, vomiting COMPARISON: None. FINDINGS and IMPRESSION: The heart is not enlarged. Mediastinal and hilar contours are normal. No focal parenchymal airspace opacity. No pleural effusion or pneumothorax. No abnormal small or large bowel dilatation. Moderate to large volume colonic stool content. No abnormal soft tissue mass effect. No suspicious calcifications are seen. No free intraperitoneal gas. Small hiatal hernia. Electronically signed by: Remberto Tello MD (05/06/2020 1:17 PM) [id number] DICTATED and SIGNED BY: REMBERTO TELLO MD DATE: 05/06/20 1317 Course & Med Decision Making: Course & Med Decision Making Pertinent Labs and Imaging studies reviewed. (See chart for details) Patient is a 64-year-old male who was evaluated in the ER due to nausea vomiting, he was felt to be dehydrated, his x-ray of his abdomen pelvic showed he had moderate amount of stool in the colon, no evident obstruction. Patient was given nausea medication and IV fluids, he feels much better. Patient will be discharged home. Patient denies suicidal ideation. Dragon Disclaimer: Dragon Disclaimer: This electronic medical record was generated, in whole or in part, using a voice recognition dictation system. Departure Departure Impression: Primary Impression: Nausea & vomiting Additional Impression: Dehydration Disposition: HOME, SELF-CARE Condition: IMPROVED Referrals: VARINDER SANTAMARIA MD (PCP) PLEASE CALL YOUR FAMILY DOCTOR FOR FOLLOW UP ON FRIDAY. Patient Instructions: Dehydration, Adult, Nausea and Vomiting Scripts Ondansetron Hcl (ZOFRAN) 4 Mg Tablet 1 TAB PO Q6HRS PRN for NAUSEA, #20 TAB Prov: ISRAEL ECHEVERRIA DO 05/06/20 Justicifation of Admission Dx: Justifications for Admission: Justification of Admission Dx: Yes Acute Renal Failure: RF Can't Be Managed Outpt Altered Mental Status: Altered Mental Status ISRAEL ECHEVERRIA DO May 06, 2020 13:37
[2020-05-06] MEDS ORDERED: IV NORMAL SALINE 1000ML BAG 1,000 ML IV ONE (14:45)
[2020-05-06 15:00] VITALS: BP 166/82
[2020-05-06 15:00] LABS: AMPHETAMINE/METHAMPHETAMINE NEG (NEG); BARBITURATES NEG (NEG); BENZODIAZEPINES NEG (NEG); CANNABINOIDS NEG (NEG); COCAINE NEG (NEG); METHADONE POS (NEG); OPIATES POS (NEG); PHENCYCLIDINE NEG (NEG)
[2020-05-06] MEDS ORDERED: ONDA4TAB7 PO (15:19)
--- NOTE | 2020-05-08 09:35 | EKG ---
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
[2020-05-12] MEDS ORDERED: ACET325T9 PO (11:12)
[2020-05-12] MEDS ORDERED: POTA20TA4 PO (11:12)
[2020-05-12] MEDS ORDERED: NA P133E6 PR (11:12)
[2020-05-12] MEDS ORDERED: BUSP10TA PO (11:12)
[2020-05-12] MEDS ORDERED: MAG30ORA2 PO (11:12)
[2020-05-12] MEDS ORDERED: DOCU-153 PO (11:12)
[2020-05-12] MEDS ORDERED: MAGN400O7 PO (11:12)
[2020-05-12] MEDS ORDERED: METH10TA2 PO (11:12)
[2020-05-12] MEDS ORDERED: ALBU2.5V8 NEB (11:12)
== END 2020-05-06 15:50 | disposition home or self-care (01) ==
LOC: ER 10:11
DX: E86.0 Dehydration (principal); R11.2 Nausea with vomiting, unspecified; G89.29 Other chronic pain; F17.200 Nicotine dependence, unspecified, uncomplicated; Z88.0 Allergy status to penicillin; Z88.2 Allergy status to sulfonamides; Z88.7 Allergy status to serum and vaccine
CPT/HCPCS: 36415; 74022; 80053; 80307; 81001; 83690; 83735; 84484; 85025; 85610; 85730; 87086; 93005; 96360; 99285; G0480; J7030